=== PATIENT | female | born 1930 | race African-American/Black ===

== ENCOUNTER 2016-05-04 00:52 | Inpatient (IN) | payer MEDICARE ==
[~2016-05-04] VITALS: Ht 147.3 cm; Wt 67.1 kg
[2016-05-04] VITALS (7 sets, daily range): BP systolic 86–115; BP diastolic 51–74
[2016-05-04] MEDS ORDERED: TORSEMIDE20 MG ORAL (00:59)
[2016-05-04] MEDS ORDERED: LORAZEPAM0.5 MG ORAL (00:59)
[2016-05-04] MEDS ORDERED: DILTIAZEM 24HR120 M1 ORAL (00:59)
[2016-05-04] MEDS ORDERED: ZYRTEC10 MG ORAL (00:59)
[2016-05-04] MEDS ORDERED: NAMENDA10 MG ORAL (00:59)
[2016-05-04] MEDS ORDERED: POTASSIUM CHLO20 ME2 ORAL (00:59)
[2016-05-04] MEDS ORDERED: TYLENOL EXTRA500 MG ORAL (00:59)
[2016-05-04] MEDS ORDERED: STIOLTO RESPIMAT4 GM IH (00:59)
[2016-05-04] MEDS ORDERED: DONEPEZIL HCL10 MG ORAL (00:59)
[2016-05-04] MEDS ORDERED: ANORO ELLIPTA1 EACH (00:59)
[2016-05-04] MEDS ORDERED: VSL#3 PACKET1 EAC1 PO (00:59)
[2016-05-04] MEDS ORDERED: CELEBREX100 MG ORAL (00:59)
[2016-05-04] MEDS ORDERED: Tubing IV Cassette IV ONE (01:00)
[2016-05-04] MEDS ORDERED: Pantoprazole Inj IV ONE (01:00)
[2016-05-04 01:27] LABS: MEAN CORPUSCULAR HEMOGLOBIN 34.5 PG (27.0-31.0); MEAN CORPUSCULAR HGB CONC 33.1 G/DL (32.0-36.0); MEAN CORPUSCULAR VOLUME 105 FL (80-99); MEAN PLATELET VOLUME 6.2 FL (6.5-10.1); PLATELET COUNT 202 K/UL (150-450); RED BLOOD COUNT 2.01 M/UL (4.20-5.40); RED CELL DISTRIBUTION WIDTH 16.5 % (11.6-14.8); WHITE BLOOD COUNT 11.1 K/UL (4.8-10.8)
[2016-05-04 01:42] LABS: ALANINE AMINOTRANSFERASE 13 U/L (3-33); ASPARTATE AMINO TRANSFERASE 19 U/L (5-40); CALCIUM 7.5 mg/dL (8.6-10.2); CARBON DIOXIDE 27 mEQ/L (20-30); CREATININE 0.9 mg/dL (0.5-0.9); HEMOLYSIS 6; LIPASE 49 U/L (< 60); TOTAL PROTEIN 5.5 g/dL (6.6-8.7)
[2016-05-04 01:43] LABS: ANION GAP 14 (5-15); CHLORIDE 104 mEQ/L (98-107); POTASSIUM 3.6 mEQ/L (3.4-4.9); SODIUM 145 mEQ/L (135-145)
[2016-05-04 01:44] LABS: TROPONIN I < 0.30 ng/mL (<=0.30)
[2016-05-04 01:46] LABS: INR 1.2 (0.9-1.1)
[2016-05-04 01:54] LABS: CKMB < 1.5 ng/mL (< 3.8)
[2016-05-04 02:12] LABS: APPEARANCE,URINE CLEAR; KETONES,URINE NEGATIVE (NEGATIVE); LEUKOCYTE ESTERASE ,URINE NEGATIVE (NEGATIVE); NITRITE,URINE NEGATIVE (NEGATIVE); PH,URINE 6.5 (4.5-8.0); PROTEIN,URINE NEGATIVE (NEGATIVE); UROBILINOGEN,URINE NORMAL MG/DL (0.0-1.0)
[2016-05-04] MEDS ORDERED: PREVACID15 MG ORAL (05:02)
[2016-05-04] MEDS ORDERED: Torsemide PO (05:02)
[2016-05-04] MEDS ORDERED: VENTOLIN HFA18 GM INH (05:02)
[2016-05-04] MEDS ORDERED: ZOFRAN4 M1 ORAL (05:02)
[2016-05-04] MEDS ORDERED: ROBAFEN100 MG/5 M PO (05:02)
--- NOTE | 2016-05-04 05:32 | Emergency Room Report ---
History of Present Illness General Chief Complaint: Gastrointestinal Bleed Source: Patient, Family Member Present Illness HPI 85-year-old female presents to ED for evaluation. Per EMS patient noted to have coffee ground emesis starting last night around 11 PM at her [facility]. Patient multiple episodes. Patient felt dizzy and weak after. Patient initially hypotensive but improved with IV fluids. Patient denies any chest pain or shortness of breath. Denies any fevers or chills. Family at bedside states patient had previous episodes of lower GI bleed and require blood transfusion. No other aggravating or relieving factors. Denies any other associated symptoms Allergies: Coded Allergies: CLARITHROMYCIN (Verified Allergy, Unknown, 05/04/16) DEXTROMETHORPHAN (Verified Allergy, Unknown, 05/04/16) MACROLIDE ANTIBIOTICS (Verified Allergy, Unknown, 05/04/16) PENICILLINS (Verified Allergy, Unknown, 05/04/16) Uncoded Allergies: KETOLIDES (Allergy, Unknown, 05/04/16) RED DYES (Allergy, Unknown, 05/04/16) TARTRAZINE (Allergy, Unknown, 05/04/16) YELLOW DYE-NON TARTRAZINE (Allergy, Unknown, 05/04/16) Patient History Past Medical History: HTN, AFib Past Surgical History: none Pertinent Family History: none Social History: Denies: alcohol use, drug use, smoking Last Menstrual Period: NA Now: No Immunizations: UTD Reviewed Nursing Documentation: PMH: Agreed, PSxH: Agreed Nursing Documentation-PMH Hx Cardiac Problems: Yes - AFIB, CHF, ANEMIA, AORTIC STENOSIS Hx Hypertension: Yes Hx Cancer: Yes - UTERINE CA Review of Systems All Other Systems: negative except mentioned in HPI Physical Exam Vital Signs Date Time Temp Pulse Resp B/P Pulse Ox O2 Delivery O2 Flow Rate FiO2 05/04/16 00:38 115 18 91/51 97 Room Air 05/04/16 02:12 97.5 Sp02 EP Interpretation: reviewed, normal General Appearance: no apparent distress, alert, GCS 15, non-toxic, cachetic, thin Head: normocephalic, atraumatic Eyes: bilateral eye PERRL, bilateral eye normal inspection ENT: hearing grossly normal, normal pharynx, no angioedema, normal voice Neck: full range of motion, supple/symm/no masses Respiratory: chest non-tender, lungs clear, normal breath sounds, speaking full sentences Cardiovascular #1: no edema, tachycardia Cardiovascular #2: 2+ carotid (R), 2+ carotid (L), 2+ radial (R), 2+ radial (L) , 2+ dorsalis pedis (R), 2+ dorsalis pedis (L) Gastrointestinal: normal bowel sounds, non tender, soft, non-distended, no guarding, no rebound Rectal: deferred Genitourinary: normal inspection, no CVA tenderness Musculoskeletal: back normal, gait/station normal, normal range of motion, non- tender Neurologic: alert, oriented x3, responsive, motor strength/tone normal, sensory intact, speech normal Psychiatric: judgement/insight normal, memory normal, mood/affect normal, no suicidal/homicidal ideation Reflexes: 3+ bicep (R), 3+ bicep (L), 3+ tricep (R), 3+ tricep (L), 3+ knee (R) , 3+ knee (L) Skin: no rash, well hydrated, pallor Lymphatic: no adenopathy Procedures Critical Care Time Critical Care Time i. I feel this is a highly complex case requiring extensive working including EKG/Rhythm strip, Xray/CT/US, Blood/urine lab work, repeat exams while in ED, and administration of strong opiates/narcotics for pain control, admission to hospital or close patient follow up. Total time: 30 min bedside evaluation and treatment excludes procedures (EKG). Reason for critical care: Upper GI bleed, hypotension, A. fib Possible complications: hypotension, hypertension, UT, shock, arrhythmias, metabolic acidosis, end organ damage, respiratory failure. Interventions: Labs, IV fluids, EKG, Zofran, Protonix. PRBCs Course: She brought in for upper GI bleed. Given Protonix, Zofran, IV fluids. Hemoglobin 6.9. Patient hypotensive despite IV fluids. Started on blood transfusion with BP slowly improving. Patient had episodes of afib but quickly resolve Consultations: nursing staff, EMS, family Performed by: Dr aLws Tolerated well condition = serious j. because of unstable vital signs this patient had a condition that could potentially threaten life or limb. I feel this is a critical patient who required my full attention while patient was considered critical. 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 After initial history and physical I ordered labs, IV fluids, zofran, portonix Labs - noted leukocytosis, Hb 6.9. BUN 41. trop negative UA unremarkable EKG - afib wtih RVR Patient remains hypotensive despite IV fluids. Started on blood transfusion with slow improvement of BP and heart rate Case discussed with Dr. Quiroga and he agreed to accept the patient to his service for further care and support I feel this is a highly complex case requiring extensive working including EKG/ Rhythm strip, Xray/CT/US, Blood/urine lab work, repeat exams while in ED, and administration of strong opiates/narcotics for pain control, admission to hospital or close patient follow up. Diagnosis - UGIB, anemia Patient admitted to telemetry in serious condition Labs Test 05/04/16 00:45 05/04/16 01:45 White Blood Count 11.1 K/UL (4.8-10.8) Red Blood Count 2.01 M/UL (4.20-5.40) Hemoglobin 6.9 G/DL (12.0-16.0) Hematocrit 21.0 % (37.0-47.0) Mean Corpuscular Volume 105 FL (80-99) Mean Corpuscular Hemoglobin 34.5 PG (27.0-31.0) Mean Corpuscular Hemoglobin Concent 33.1 G/DL (32.0-36.0) Red Cell Distribution Width 16.5 % (11.6-14.8) Platelet Count 202 K/UL (150-450) Mean Platelet Volume 6.2 FL (6.5-10.1) Neutrophils (%) (Auto) % (45.0-75.0) Lymphocytes (%) (Auto) % (20.0-45.0) Monocytes (%) (Auto) % (1.0-10.0) Eosinophils (%) (Auto) % (0.0-3.0) Basophils (%) (Auto) % (0.0-2.0) Prothrombin Time 12.0 SEC (9.30-11.50) Prothromb Time International Ratio 1.2 (0.9-1.1) Activated Partial Thromboplast Time 21 SEC (23-33) Sodium Level 145 mEQ/L (135-145) Potassium Level 3.6 mEQ/L (3.4-4.9) Chloride Level 104 mEQ/L (98-107) Carbon Dioxide Level 27 mEQ/L (20-30) Anion Gap 14 (5-15) Blood Urea Nitrogen 41 mg/dL (7-23) Creatinine 0.9 mg/dL (0.5-0.9) Estimat Glomerular Filtration Rate mL/min (>60) Glucose Level 126 mg/dL (74-106) Calcium Level 7.5 mg/dL (8.6-10.2) Total Bilirubin 0.3 mg/dL (0.0-1.2) Aspartate Amino Transf (AST/SGOT) 19 U/L (5-40) Alanine Aminotransferase (ALT/SGPT) 13 U/L (3-33) Alkaline Phosphatase 55 U/L (35-104) Creatine Kinase MB < 1.5 ng/mL (< 3.8) Troponin I < 0.30 ng/mL (<=0.30) Total Protein 5.5 g/dL (6.6-8.7) Albumin 2.8 g/dL (3.5-5.2) Globulin 2.7 g/dL Albumin/Globulin Ratio 1.0 (1.0-2.7) Lipase 49 U/L (< 60) Urine Color Pale yellow Urine Appearance Clear Urine pH 6.5 (4.5-8.0) Urine Specific [place] 1.010 (1.005-1.035) Urine Protein Negative (NEGATIVE) Urine Glucose (UA) Negative (NEGATIVE) Urine Ketones Negative (NEGATIVE) Urine Occult Blood Negative (NEGATIVE) Urine Nitrite Negative (NEGATIVE) Urine Bilirubin Negative (NEGATIVE) Urine Urobilinogen Normal MG/DL (0.0-1.0) Urine Leukocyte Esterase Negative (NEGATIVE) EKG Diagnostic Results Rate: tachycardiac Rhythm: other - afib ST Segments: no acute changes ASA given to the pt in ED: No Rhythm Strip Diag. Results EP Interpretation: yes Rhythm: NSR, no PVC's, no ectopy Last Vital Signs Date Time Temp Pulse Resp B/P Pulse Ox O2 Delivery O2 Flow Rate FiO2 05/04/16 04:00 110 19 96/53 96 Room Air 05/04/16 04:00 97.3 Status: improved Disposition: ADMITTED INPATIENT Condition: Serious Referrals: NON PHYSICIAN (PCP) CAMACHO LAWS M.D. May 04, 2016 05:32
[2016-05-04] MEDS: Pantoprazole Inj IVP SCH ×2 (09:46→20:46)
[2016-05-04] MEDS: Memantine 10mg tab ORAL SCH ×2 (09:46→17:39)
--- NOTE | 2016-05-04 11:01 | History & Physical ---
History and Physical History & Physicial Dictated for Int Med-Dr Quezada no. [id number]. SHANICE KNIGHT May 04, 2016 11:01
--- NOTE | 2016-05-04 12:18 | Consultation ---
DATE OF CONSULTATION: 05/04/2016 HEMATOLOGY/ONCOLOGY CONSULTATION: CONSULTING PHYSICIAN: Quique Vanegas M.D. REQUESTING PHYSICIAN: Colin Quiroga M.D. REASON FOR CONSULTATION: Evaluation of anemia. IDENTIFICATION: Dear Dr. Colin Quiroga, The patient is a pleasant 85-year-old female with past medical history significant for hypertension, atrial fibrillation, aortic stenosis, history of anemia which has been chronic, history of , at this time presented to ER for further evaluation due to coffee-ground emesis began last night in the residential. The patient's daughter IV fluids and afterwards, she was transferred for evaluation of upper GI bleed in addition to blood transfusions. Hematology service was consulted. PAST MEDICAL HISTORY: As noted above. PAST SURGICAL HISTORY: Reviewed. ALLERGIES: Clindamycin . SOCIAL HISTORY: No alcohol, tobacco, or illicit drug use . FAMILY HISTORY: Noncontributory. REVIEW OF SYSTEMS: Constitutional: No fever, chills, or night sweats. Skin: No rashes, lumps, or itching. HEENT: No headache, hearing or vision changes. Breasts: No lumps, pain, or discharge. Pulmonary: No cough, sputum, or shortness of breath. Cardiovascular: No chest pain, tightness, or palpitations. Gastrointestinal: No nausea, vomiting, or diarrhea. Genitourinary: No dysuria, frequency, or urgency. Musculoskeletal: No joint swelling, muscle pain, or trauma. PHYSICAL EXAMINATION: GENERAL: No acute distress. VITAL SIGNS: Temperature 97.2 degrees Fahrenheit, pulse 124, respiratory rate 12, blood pressure 110/69, and pulse oximetry 95% on room air. PULMONARY: Decreased breath sounds. CARDIOVASCULAR: Regular rate and rhythm. No S3 or S4. ABDOMEN: Soft, nontender, and nondistended. EXTREMITIES: A 1+ edema. LABORATORY AND DIAGNOSTIC DATA: WBC 11.1, hemoglobin , hematocrit , and platelet count . INR 0.2. BUN 41 and creatinine 3.9. Imaging, reviewed. ASSESSMENT: 1. Anemia secondary to coffee-ground emesis and gastrointestinal bleed. 2. Decreased hemoglobin and hematocrit . 3. Anemia secondary to chronic disease. 4. Leukocytosis process. 5. Hypertension secondary to bleed. 6. Atrial fibrillation with rapid ventricular response. 7. Coagulopathy secondary potential malnutrition versus vitamin K deficiency. RECOMMENDATIONS: 1. The patient transfer to ICU. 2. Hemoglobin goal less than 7. 3. Platelets goal less than 20,000. 4. I have ordered for anemia workup. 5. Ultrasound of the abdomen ordered. 6. Occult blood is pending. 7. DVT prophylaxis with SCDs. 8. GI prophylaxis with pantoprazole . 9. Consider ID service and GI service GI labs. 10. . Thank you, Dr. Colin Quiroga, for this kind referral. Please do not hesitate to contact me if you have any further questions. Quique Vanegas M.D. DR: Yoselin JOB#: [id number] CC:
--- NOTE | 2016-05-04 13:40 | Consultation ---
History of Present Illness General Date patient seen: May 04, 2016 Chief Complaint: Gastrointestinal Bleed Reason for Consultation: shock, inpatient management Present Illness HPI 85-year-old female with hx of afib, dementia, uterine cancer, presents to ED for evaluation of coffee ground emesis. Patient had multiple episodes. She felt dizzy and weak after and was hypotensive but improved with IV fluids. Family at bedside states patient had previous episodes of lower GI bleed and require blood transfusion. She is awake, poor historian but looks comfortable but pale. Allergies: Coded Allergies: CLARITHROMYCIN (Verified Allergy, Unknown, 05/04/16) DEXTROMETHORPHAN (Verified Allergy, Unknown, 05/04/16) MACROLIDE ANTIBIOTICS (Verified Allergy, Unknown, 05/04/16) PENICILLINS (Verified Allergy, Unknown, 05/04/16) Uncoded Allergies: KETOLIDES (Allergy, Unknown, 05/04/16) RED DYES (Allergy, Unknown, 05/04/16) TARTRAZINE (Allergy, Unknown, 05/04/16) YELLOW DYE-NON TARTRAZINE (Allergy, Unknown, 05/04/16) Medication History Scheduled Celecoxib* (Celebrex*), 100 MG ORAL TWICE A DAY, (Reported) Cetirizine Hcl* (Zyrtec*), 10 MG ORAL DAILY, (Reported) Diltiazem Hcl* (Diltiazem 24HR Er*), 360 MG ORAL DAILY, (Reported) Donepezil Hcl* (Donepezil Hcl*), 10 MG ORAL BID, (Reported) Lact Cmb2/S.thermophl/Bif Cmb1 (Vsl#3 Packet), 1 EACH PO THREE TIMES A DAY, ( Reported) Lansoprazole* (Prevacid*), 15 MG ORAL DAILY, (Reported) Lorazepam* (Lorazepam*), 0.5 MG ORAL TWICE A DAY, (Reported) Memantine Hcl* (Namenda*), 10 MG ORAL TWICE A DAY, (Reported) Potassium Chloride (Potassium Chloride), 20 MEQ ORAL TWICE A DAY, (Reported) [Torsemide*], 60 MG PO DAILY, (Reported) Scheduled PRN Acetaminophen* (Tylenol Extra Strength*), 500 MG ORAL Q6H PRN for Mild Pain/ Temp > 100.5, (Reported) Albuterol Sulfate (Ventolin Hfa), 1 PUFF INH EVERY 4 HOURS PRN for Shortness of Breath, (Reported) Guaifenesin (Robafen), 200 MG PO EVERY 6 HOURS PRN for For Cough, (Reported) Ondansetron (Zofran), 4 MG ORAL Q6H PRN for Nausea & Vomiting, (Reported) Miscellaneous Medications Tiotropium Br/Olodaterol HCl (Stiolto Respimat Inhal Patriot), Unknown Dose IH, ( Reported) Umeclidinium Brm/Vilanterol Tr (Anoro Ellipta 62.5-25 Mcg INH), (Reported) Discontinued Medications Torsemide* (Demadex*), 20 MG ORAL DAILY, (Reported) Discontinued Reason: Prescription changed Patient History Healthcare decision maker Laury Rojas Resuscitation status Full Code Advanced Directive on File No Past Medical/Surgical History Past Medical/Surgical History: (1) Atrial fibrillation (2) Anemia Review of Systems All Other Systems: negative except mentioned in HPI Physical Exam General Appearance: WD/WN HEENT: normocephalic, atraumatic Neck: non-tender, normal alignment Respiratory/Chest: chest wall non-tender, lungs clear Breasts: no masses Cardiovascular/Chest: normal peripheral pulses, normal rate Abdomen: normal bowel sounds, non tender Extremities: normal range of motion Skin Exam: normal pigmentation Last 24 Hour Vital Signs Date Time Temp Pulse Resp B/P Pulse Ox O2 Delivery O2 Flow Rate FiO2 05/04/16 13:10 140 103/48 05/04/16 11:50 97.0 100 20 108/60 97 Room Air 05/04/16 09:47 117 110/61 05/04/16 08:28 97.2 124 20 110/61 95 Room Air 05/04/16 04:00 82 05/04/16 04:00 110 19 96/53 96 Room Air 05/04/16 04:00 97.3 138 16 107/62 97 Room Air 05/04/16 03:05 97.8 130 19 86/51 95 Room Air 05/04/16 02:12 97.5 97 19 88/53 95 Room Air 05/04/16 00:38 115 18 91/51 97 Room Air Intake and Output 05/03/16 05/04/16 19:00 07:00 Intake Total 2000 ml Output Total 575 ml Balance 1425 ml Intake IV Total 2000 ml Output Urine Total 575 ml Laboratory Tests Test 05/04/16 00:45 05/04/16 01:45 White Blood Count 11.1 K/UL (4.8-10.8) H Red Blood Count 2.01 M/UL (4.20-5.40) L Hemoglobin 6.9 G/DL (12.0-16.0) *L Hematocrit 21.0 % (37.0-47.0) L Mean Corpuscular Volume 105 FL (80-99) H Mean Corpuscular Hemoglobin 34.5 PG (27.0-31.0) H Mean Corpuscular Hemoglobin Concent 33.1 G/DL (32.0-36.0) Red Cell Distribution Width 16.5 % (11.6-14.8) H Platelet Count 202 K/UL (150-450) Mean Platelet Volume 6.2 FL (6.5-10.1) L Neutrophils (%) (Auto) % (45.0-75.0) Lymphocytes (%) (Auto) % (20.0-45.0) Monocytes (%) (Auto) % (1.0-10.0) Eosinophils (%) (Auto) % (0.0-3.0) Basophils (%) (Auto) % (0.0-2.0) Prothrombin Time 12.0 SEC (9.30-11.50) H Prothromb Time International Ratio 1.2 (0.9-1.1) H Activated Partial Thromboplast Time 21 SEC (23-33) L Sodium Level 145 mEQ/L (135-145) Potassium Level 3.6 mEQ/L (3.4-4.9) Chloride Level 104 mEQ/L (98-107) Carbon Dioxide Level 27 mEQ/L (20-30) Anion Gap 14 (5-15) Blood Urea Nitrogen 41 mg/dL (7-23) H Creatinine 0.9 mg/dL (0.5-0.9) Estimat Glomerular Filtration Rate mL/min (>60) Glucose Level 126 mg/dL (74-106) H Calcium Level 7.5 mg/dL (8.6-10.2) L Total Bilirubin 0.3 mg/dL (0.0-1.2) Aspartate Amino Transf (AST/SGOT) 19 U/L (5-40) Alanine Aminotransferase (ALT/SGPT) 13 U/L (3-33) Alkaline Phosphatase 55 U/L (35-104) Creatine Kinase MB < 1.5 ng/mL (< 3.8) Troponin I < 0.30 ng/mL (<=0.30) Total Protein 5.5 g/dL (6.6-8.7) L Albumin 2.8 g/dL (3.5-5.2) L Globulin 2.7 g/dL Albumin/Globulin Ratio 1.0 (1.0-2.7) Lipase 49 U/L (< 60) Urine Color Pale yellow Urine Appearance Clear Urine pH 6.5 (4.5-8.0) Urine Specific [place] 1.010 (1.005-1.035) Urine Protein Negative (NEGATIVE) Urine Glucose (UA) Negative (NEGATIVE) Urine Ketones Negative (NEGATIVE) Urine Occult Blood Negative (NEGATIVE) Urine Nitrite Negative (NEGATIVE) Urine Bilirubin Negative (NEGATIVE) Urine Urobilinogen Normal MG/DL (0.0-1.0) Urine Leukocyte Esterase Negative (NEGATIVE) Height (Feet): 4 Height (Inches): 10.00 Weight (Pounds): 148 Medications Current Medications Medications (Trade) Dose Ordered Sig/Amy Route PRN Reason Start Time Stop Time Status Last Admin Dose Admin Diltiazem HCl (Cardizem) 60 mg FOUR TIMES A DAY ORAL 05/04/16 09:00 06/03/16 08:59 05/04/16 13:10 Lorazepam (Ativan) 0.5 mg BIDPRN PRN ORAL For Anxiety 05/04/16 08:30 05/11/16 08:29 Memantine (Namenda) 10 mg BID ORAL 05/04/16 09:00 06/03/16 08:59 05/04/16 09:46 Ondansetron HCl (Zofran) 4 mg Q6H PRN IVP Nausea & Vomiting 05/04/16 08:30 06/03/16 08:29 Pantoprazole (Protonix) 40 mg EVERY 12 HOURS IVP 05/04/16 09:00 06/03/16 08:59 05/04/16 09:46 Assessment/Plan Problem List: (1) UGIB (upper gastrointestinal bleed) ICD Codes: K92.2 - Gastrointestinal hemorrhage, unspecified SNOMED: 59876014 (2) Atrial fibrillation ICD Codes: I48.91 - Unspecified atrial fibrillation SNOMED: 41965589 (3) Anemia ICD Codes: D64.9 - Anemia, unspecified SNOMED: 530027162 Qualifiers: Qualified Codes: D64.9 - Anemia, unspecified Assessment/Plan prbc prn GI evaluation H2 blokers monitor bed watch heart rate. Keep in teli for now NAPOLEON JI May 04, 2016 13:40
--- NOTE | 2016-05-04 14:34 | GI Initial Consult Note ---
History of Present Illness General Date patient seen: May 04, 2016 Time patient seen: 12:00 Reason for Hospitalization: Gastrointestinal Bleed Referring physician: PITO RICHMOND Reason for Consultation: ANEMIA 2/2 ACUTE BLOOD LOSS Present Illness HPI 85-year-old female presents to ED for evaluation. Per EMS patient noted to have coffee ground emesis starting last night around 11 PM at her [facility]. Patient multiple episodes. Patient felt dizzy and weak after. Patient initially hypotensive but improved with IV fluids. Patient denies any chest pain or shortness of breath. Denies any fevers or chills. Family at bedside states patient had previous episodes of lower GI bleed and require blood transfusion. No other aggravating or relieving factors. Denies any other associated symptoms GI CONSULT: HPI as noted above. GI consulted for UGIB. Pt seen on floor A&O NAD with family at bedside. No active s/sx of hematemesis or coffee grounds at this time. According to the daughter, the patient has had a history of multiple abdominal surgeries with bowel resection prior in the past. More recently, she was hospitalized at [facility] in Jan 2016 for anemia. Unknown history of colonoscopy. Home Meds Reported Medications Albuterol Sulfate (VENTOLIN HFA) 18 Gm Hfa.aer.ad, 1 PUFF INH EVERY 4 HOURS Y for Shortness of Breath, #18 GM 0 Refills 05/04/16 Guaifenesin (ROBAFEN) 100 Mg/5 Ml Liquid, 200 MG PO EVERY 6 HOURS Y for For Cough, ML 05/04/16 Ondansetron (Zofran) 4 Mg Tablet, 4 MG ORAL Q6H Y for Nausea & Vomiting, TAB 05/04/16 Lansoprazole* (PREVACID*) 15 Mg Capsule.dr, 15 MG ORAL DAILY, CAP 05/04/16 [Torsemide*] No Conflict Check, 60 MG PO DAILY 05/04/16 Acetaminophen* (TYLENOL EXTRA STRENGTH*) 500 Mg Tablet, 500 MG ORAL Q6H Y for Mild Pain/Temp > 100.5, TAB 0 Refills 05/04/16 Lact Cmb2/S.thermophl/Bif Cmb1 (VSL#3 PACKET) 1 Each Packet, 1 EACH PO THREE TIMES A DAY, PACKET 05/04/16 Tiotropium Br/Olodaterol HCl (Stiolto Respimat Inhal [place]) 4 Gm Mist.inhal, IH 05/04/16 Potassium Chloride (POTASSIUM CHLORIDE) 20 Meq Packet, 20 MEQ ORAL TWICE A DAY, #60 PKT 0 Refills 05/04/16 Memantine Hcl* (NAMENDA*) 10 Mg Tablet, 10 MG ORAL TWICE A DAY, TAB 05/04/16 Lorazepam* (LORAZEPAM*) 0.5 Mg Tablet, 0.5 MG ORAL TWICE A DAY, TAB 05/04/16 Donepezil Hcl* (DONEPEZIL HCL*) 10 Mg Tablet, 10 MG ORAL BID, TAB 05/04/16 Diltiazem Hcl* (DILTIAZEM 24HR ER*) 120 Mg Cap.er.24h, 360 MG ORAL DAILY, TAB 05/04/16 Cetirizine Hcl* (ZYRTEC*) 10 Mg Tablet, 10 MG ORAL DAILY, #30 TAB 0 Refills 05/04/16 Celecoxib* (CELEBREX*) 100 Mg Capsule, 100 MG ORAL TWICE A DAY, CAP 05/04/16 Umeclidinium Brm/Vilanterol Tr (Anoro Ellipta 62.5-25 Mcg INH) 1 Each Blst.w.dev 05/04/16 Discontinued Reported Medications Torsemide* (DEMADEX*) 20 Mg Tablet, 20 MG ORAL DAILY, TAB 0 Refills 05/04/16 Med list reviewed/reconciled: Yes Allergies: Coded Allergies: CLARITHROMYCIN (Verified Allergy, Unknown, 05/04/16) DEXTROMETHORPHAN (Verified Allergy, Unknown, 05/04/16) MACROLIDE ANTIBIOTICS (Verified Allergy, Unknown, 05/04/16) PENICILLINS (Verified Allergy, Unknown, 05/04/16) Uncoded Allergies: KETOLIDES (Allergy, Unknown, 05/04/16) RED DYES (Allergy, Unknown, 05/04/16) TARTRAZINE (Allergy, Unknown, 05/04/16) YELLOW DYE-NON TARTRAZINE (Allergy, Unknown, 05/04/16) Patient History History Provided By: Patient, Significant Other, Medical Record PMH Narrative Past Medical History: HTN, AFib Past Surgical History: none Pertinent Family History: none Social History: Denies: alcohol use, drug use, smoking Last Menstrual Period: NA Now: No Immunizations: UTD Reviewed Nursing Documentation: PMH: Agreed, PSxH: Agreed Nursing Documentation-PMH Hx Cardiac Problems: Yes - AFIB, CHF, ANEMIA, AORTIC STENOSIS Hx Hypertension: Yes Hx Cancer: Yes - UTERINE CA Review of Systems All Other Systems: negative except mentioned in HPI Physical Exam Vital Signs Date Time Temp Pulse Resp B/P Pulse Ox O2 Delivery O2 Flow Rate FiO2 05/04/16 00:38 115 18 91/51 97 Room Air 05/04/16 02:12 97.5 Sp02 EP Interpretation: reviewed Labs Laboratory Tests Test 05/04/16 00:45 05/04/16 01:45 White Blood Count 11.1 K/UL (4.8-10.8) H Red Blood Count 2.01 M/UL (4.20-5.40) L Hemoglobin 6.9 G/DL (12.0-16.0) *L Hematocrit 21.0 % (37.0-47.0) L Mean Corpuscular Volume 105 FL (80-99) H Mean Corpuscular Hemoglobin 34.5 PG (27.0-31.0) H Mean Corpuscular Hemoglobin Concent 33.1 G/DL (32.0-36.0) Red Cell Distribution Width 16.5 % (11.6-14.8) H Platelet Count 202 K/UL (150-450) Mean Platelet Volume 6.2 FL (6.5-10.1) L Neutrophils (%) (Auto) % (45.0-75.0) Lymphocytes (%) (Auto) % (20.0-45.0) Monocytes (%) (Auto) % (1.0-10.0) Eosinophils (%) (Auto) % (0.0-3.0) Basophils (%) (Auto) % (0.0-2.0) Prothrombin Time 12.0 SEC (9.30-11.50) H Prothromb Time International Ratio 1.2 (0.9-1.1) H Activated Partial Thromboplast Time 21 SEC (23-33) L Sodium Level 145 mEQ/L (135-145) Potassium Level 3.6 mEQ/L (3.4-4.9) Chloride Level 104 mEQ/L (98-107) Carbon Dioxide Level 27 mEQ/L (20-30) Anion Gap 14 (5-15) Blood Urea Nitrogen 41 mg/dL (7-23) H Creatinine 0.9 mg/dL (0.5-0.9) Estimat Glomerular Filtration Rate mL/min (>60) Glucose Level 126 mg/dL (74-106) H Calcium Level 7.5 mg/dL (8.6-10.2) L Total Bilirubin 0.3 mg/dL (0.0-1.2) Aspartate Amino Transf (AST/SGOT) 19 U/L (5-40) Alanine Aminotransferase (ALT/SGPT) 13 U/L (3-33) Alkaline Phosphatase 55 U/L (35-104) Creatine Kinase MB < 1.5 ng/mL (< 3.8) Troponin I < 0.30 ng/mL (<=0.30) Total Protein 5.5 g/dL (6.6-8.7) L Albumin 2.8 g/dL (3.5-5.2) L Globulin 2.7 g/dL Albumin/Globulin Ratio 1.0 (1.0-2.7) Lipase 49 U/L (< 60) Urine Color Pale yellow Urine Appearance Clear Urine pH 6.5 (4.5-8.0) Urine Specific [place]oss 1.010 (1.005-1.035) Urine Protein Negative (NEGATIVE) Urine Glucose (UA) Negative (NEGATIVE) Urine Ketones Negative (NEGATIVE) Urine Occult Blood Negative (NEGATIVE) Urine Nitrite Negative (NEGATIVE) Urine Bilirubin Negative (NEGATIVE) Urine Urobilinogen Normal MG/DL (0.0-1.0) Urine Leukocyte Esterase Negative (NEGATIVE) General Appearance: well appearing, no apparent distress, alert Head: normocephalic EENT: normal ENT inspection Neck: supple Respiratory: normal breath sounds, no respiratory distress Cardiovascular: normal rate Gastrointestinal: normal inspection, non tender, soft Rectal: deferred Genitourinary: normal inspection, no CVA tenderness Neurologic: normal inspection, alert, responsive Psychiatric: normal inspection, judgement/insight normal, memory normal Skin: normal inspection, normal color, no rash, warm/dry Lymphatic: normal inspection, no adenopathy Current Medications Current Medications Medications (Trade) Dose Ordered Sig/Amy Route PRN Reason Start Time Stop Time Status Last Admin Dose Admin Diltiazem HCl (Cardizem) 60 mg FOUR TIMES A DAY ORAL 05/04/16 09:00 06/03/16 08:59 05/04/16 13:10 Lorazepam (Ativan) 0.5 mg BIDPRN PRN ORAL For Anxiety 05/04/16 08:30 05/11/16 08:29 Memantine (Namenda) 10 mg BID ORAL 05/04/16 09:00 06/03/16 08:59 05/04/16 09:46 Ondansetron HCl (Zofran) 4 mg Q6H PRN IVP Nausea & Vomiting 05/04/16 08:30 06/03/16 08:29 Pantoprazole (Protonix) 40 mg EVERY 12 HOURS IVP 05/04/16 09:00 06/03/16 08:59 05/04/16 09:46 GI: Plan Problems: (1) Coffee ground emesis (2) Hypoalbuminemia (3) Leukocytosis (4) Anemia (5) UGIB (upper gastrointestinal bleed) Plan Pt scheduled for EGD tomorrow. - CLD after abdominal U/S, NPO @ MN. hold all blood thinners PPI BID monitor H&H, transfuse prn if Hgb < 7.0 obtain records from [facility] labs Discussed with Dr. Lorenzana. Thank you for referring this patient, we will follow. Ana Boogie N.P. May 04, 2016 14:34
[2016-05-04 16:08] LABS: BASOPHILS % (AUTO) 1.4 % (0.0-2.0); EOSINOPHILS % (AUTO) 0.9 % (0.0-3.0); LYMPHOCYTES % (AUTO) 24.8 % (20.0-45.0); MEAN CORPUSCULAR HEMOGLOBIN 32.9 PG (27.0-31.0); MEAN CORPUSCULAR VOLUME 100 FL (80-99); MEAN PLATELET VOLUME 5.8 FL (6.5-10.1); MONOCYTES % (AUTO) 10.2 % (1.0-10.0); NEUTROPHILS % (AUTO) 62.7 % (45.0-75.0); PLATELET COUNT 172 K/UL (150-450); RED BLOOD COUNT 2.99 M/UL (4.20-5.40); RED CELL DISTRIBUTION WIDTH 17.6 % (11.6-14.8)
--- NOTE | 2016-05-04 16:14 | Diagnostic Imaging Report ---
Indication: Abdominal pain and distention Technique: Narvaez-scale and duplex images of the upper abdomen were obtained Comparison: None Findings: Exam is somewhat limited, as patient was confused and unable tolerate the exam well.. Gallbladder is poorly demonstrated, appears to be shadowing, likely filled with gallstones. No definite gallbladder wall thickening nor pericholecystic fluid. . Common bile duct measures 7 mm in diameter. No intrahepatic biliary ductal dilatation. Liver demonstrates normal echogenicity, no focal abnormality. Portal vein and hepatic veins are patent.. Pancreas is unremarkable. Spleen is unremarkable. Left kidney measures 9.7 cm in length. Right kidney measures 10.1 cm length. Both kidneys demonstrate normal echogenicity. There is no hydronephrosis. There is a 2.5 cm cyst in the upper pole of left kidney. Abdominal aorta is partially obscured by bowel gas, visualized portions are non-aneurysmal. Impression: Poorly visualized gallbladder, likely filled with stones. Mildly ectatic common bile duct. Probably related to patient's age, but downstream obstruction not completely excluded. Correlate with liver function tests Incidental finding of left renal cyst Note inability to visualize portions of the distal abdominal aorta
[2016-05-04 16:19] LABS: ANION GAP 15 (5-15); CALCIUM 7.9 mg/dL (8.6-10.2); CARBON DIOXIDE 23 mEQ/L (20-30); CHLORIDE 109 mEQ/L (98-107); CREATININE 0.7 mg/dL (0.5-0.9); HEMOLYSIS 7; POTASSIUM 3.9 mEQ/L (3.4-4.9); SODIUM 147 mEQ/L (135-145)
[2016-05-04 16:34] LABS: HEMOLYSIS 4; IRON 223 ug/dL (37-145); TOTAL IRON BINDING CAPACITY 253 ug/dL (250-400)
[2016-05-04 16:35] LABS: CRP QUANT < 0.3 mg/dL (< 0.5)
[2016-05-04 16:47] LABS: FERRITIN 71 ng/mL (13-150)
[2016-05-04] MEDS: LORazepam 0.5mg tab ORAL PRN (17:21)
[2016-05-04 19:40] LABS: RETICULOCYTE COUNT 1.5 % (0.0-2.0)
--- NOTE | 2016-05-04 20:28 | History and Physical Report ---
DATE OF ADMISSION: 05/04/2016 CHIEF COMPLAINT: The patient is an 85-year-old white female who presents with complaint of vomiting blood. HISTORY OF PRESENT ILLNESS: The patient is a resident of [facility]. The patient has Alzheimer's dementia and is unable to contribute much of the history and physical. Much of the history and physical is obtained from the patient's daughter, Laury, power of traffic law attorney who is at the bedside. According to staff at [facility], the patient experience coffee-grounds emesis last evening. EMS was called. The patient was transported to [facility]. The patient's hemoglobin was found to be 6.9. The patient was admitted for probable upper gastrointestinal hemorrhage and anemia. PAST MEDICAL HISTORY: Significant for. 1. Hypertension. 2. Atrial fibrillation. 3. Alzheimer's dementia. 4. Rheumatoid arthritis. 5. Coronary artery disease. 6. Congestive heart failure. 7. Aortic stenosis. 8. Uterine cancer, status post total abdominal hysterectomy, chemotherapy and radiation therapy. 9. History of gastrointestinal bleed in January 2016, admitted to [facility]. PAST SURGICAL HISTORY: Significant for: 1. Small bowel obstruction in 2011. 2. Hernia repair. 3. Total abdominal hysterectomy secondary to uterine cancer as above in 2006. CURRENT MEDICATIONS: 1. Multivitamin tablet p.o. twice daily. 2. Asmanex an oral inhaler one puff daily. 3. Celebrex 100 mg one tablet p.o. twice daily. 4. Zyrtec 10 mg one tablet p.o. daily. 5. Diltiazem ER 360 mg one tablet p.o. daily. 6. Aricept 10 mg one tablet p.o. twice daily. 7. Ensure one bottle p.o. at bedtime. 8. Lorazepam 1 mg one tablet p.o. twice daily. 9. Namenda 10 mg one tablet p.o. twice daily. 10. Potassium chloride 20 mEq one tablet p.o. twice daily. 11. Prevacid 15 mg one tablet p.o. daily. 12. Torsemide 20 mg three tablets p.o. daily. ALLERGIES: 1. Erythromycin. 2. Clarithromycin. 3. . 4. Penicillin. SOCIAL HISTORY: The patient is . The patient lives at [facility]. The patient denies tobacco or alcohol use. REVIEW OF SYSTEMS: Constitutional: The patient denies fevers or chills. The patient does complain of generalized weakness. Cardiovascular: The patient denies palpitations or chest pain. Heent: The patient denies ear or throat pain. The patient denies headache. Chest: The patient denies wheeze or shortness of breath. Abdomen: The patient complains of coffee-grounds emesis as above. The patient denies diarrhea or constipation. Genitourinary: The patient denies dysuria or increased frequency of urination. Neuromuscular: The patient denies seizure. The patient complains of generalized weakness. PHYSICAL EXAMINATION: VITAL SIGNS: Temperature 97.5, respirations 19, pulse 97, blood pressure 88/53. GENERALLY: The patient is well-developed and well-nourished white female, no apparent distress. HEENT: Eyes are pupils are equal and responsive to light and accommodation. Extraocular movements are intact. NECK: Supple without lymphadenopathy. CHEST: Lungs are clear to auscultation bilaterally without wheezes or rales. CARDIOVASCULAR: Regular rate. S1 and S2 are normal without murmurs, rubs, or gallops. ABDOMEN: Soft and nondistended. Diffusely tender to palpation with positive bowel sounds. No evidence of hepatosplenomegaly. Currently no rebound or guarding. EXTREMITIES: Negative for clubbing, cyanosis, or edema. RECTAL/GENITAL: Refused. NEUROLOGIC: Cranial nerves II through XII are grossly intact without focal deficits. Motor strength is 5/5 bilaterally. Deep tendon reflexes are 2+ plantar. LABORATORY STUDIES: WBC 11.1, hemoglobin 6.9, hematocrit 21.0, platelets 202,000. Sodium 145, potassium 3.6, chloride 104, CO2 27, BUN 41, creatinine 0.9, glucose 126. Troponin less than 0.3. An EKG was performed, which demonstrated sinus tachycardia at approximately 125 beats per minute. There are no acute ST changes or Q-waves noted. ASSESSMENT: This is an 85-year-old female. 1. Gastrointestinal hemorrhage. 2. Anemia of blood loss. 3. Hematemesis. 4. Weakness. 5. Vertigo. 6. Hypertension. 7. Coronary artery disease. 8. Congestive heart failure. 9. Alzheimer's dementia. 10. Aortic stenosis. 11. History of uterine cancer. 12. Tachycardia. TREATMENT: 1. Gastrointestinal hemorrhage plus anemia, the patient received one unit of packed RBCs in the emergency room. The patient is currently receiving a second unit of packed RBCs. A Gastroenterology consultation obtained with Dr. Abdoul Lorenzana. Gastrointestinal hemorrhage may be secondary to Celebrex versus ulcer. The patient may require endoscopy during this hospitalization. 2. Hypertension. Continue Cardizem as above. 3. Coronary artery disease. 4. Congestive heart failure. 5. Atrial fibrillation. 6. Aortic stenosis. 7. Uterine cancer, status post total hysterectomy. 8. Tachycardia. Jatinder Salgado M.D. DR: Jez JOB#: [id number] CC:
--- NOTE | 2016-05-04 23:04 | Consultation ---
Consult Note Consult Note Cardiology/ EP for Dr. Pedraza full note dictated #[id number] MARY PRESSLEY May 04, 2016 23:04
[2016-05-05] VITALS: BP 100/66
--- NOTE | 2016-05-05 01:27 | Consultation ---
DATE OF CONSULTATION: CARDIOLOGY CONSULT This is a cardiac electrophysiology consult being done as coverage for Dr. Flakito Pedraza. REASON FOR CONSULT: Atrial fibrillation. HISTORY OF PRESENT ILLNESS: History is obtained primarily from the chart and treating providers as the patient has dementia and is unable to give much history. The case is an 85-year-old woman, convalescent home resident, with a history of atrial fibrillation, hypertension, coronary artery disease, and dementia, who was brought in by paramedics with hematemesis. Her hemoglobin was 6.9. She was admitted for upper gastrointestinal bleeding and anemia. She was found to be in atrial flutter with a ventricular rate of 125 beats per minute on admission and is currently in atrial fibrillation. Cardiology evaluation was requested. The patient herself has no complaints of palpitations, chest pain, or dyspnea. She does not know why she is in the hospital and is oriented to person only. PAST MEDICAL HISTORY: As noted above. Also, history of uterine cancer status post hysterectomy and chemotherapy and radiation, history of small-bowel obstruction in 2011 treated surgically, history of gastrointestinal bleed in January 2006 treated at [facility], history of valvular heart disease with severe tricuspid regurgitation and moderate aortic stenosis by echo in March 2015 treated at [facility], history of atrial fibrillation in January 2016, persistent and treated with metoprolol and digoxin, history of acute on persistent treated with rate control, digoxin and metoprolol, history of valvular heart disease with [id number] tricuspid, mitral regurgitation, and moderate aortic stenosis by echo in February 2015. MEDICATIONS: Tylenol p.r.n., diltiazem 60 mg p.o. q.6 hours, Protonix 40 mg IV q.12 hours, Namenda 10 mg p.o. b.i.d., Ativan 0.5 mg p.o. b.i.d. p.r.n., and Zofran 4 mg IV q.6 hours p.r.n. ALLERGIES: Penicillin, antibiotics, clarithromycin, dextromethorphan, and tartrazine. SOCIAL HISTORY: Not obtainable from the patient or chart. REVIEW OF SYSTEMS: Not obtainable from the patient or chart. PHYSICAL EXAMINATION: VITAL SIGNS: Blood pressure is 113/74, pulse 126 and irregularly irregular, respirations 20, and afebrile. GENERAL: Alert, elderly-appearing white female, in no acute distress. HEENT: Normocephalic and atraumatic. Pupils are equal, round, and reactive to light. Sclerae anicteric. Oral mucosa dry. NECK: Supple. There is a left external jugular venous catheter. No carotid bruits. LUNGS: Clear to auscultation bilaterally. HEART: Irregularly irregular. Tachycardic. S1 and S2 with a 2/6 systolic ejection murmur heard at the right second intercostal space radiating across the left sternal border. No S3. No rubs. ABDOMEN: Soft and nontender. No palpable mass. EXTREMITIES: A 1+ pedal and ankle edema bilaterally. SKIN: No rashes or lesions. LABORATORY DATA: Hemoglobin on admission 6.9, hematocrit 21, white blood count 11,100, and platelets 202,000. Sodium 147, potassium 3.9, chloride 109, bicarbonate 23, BUN 50, and creatinine 0.7. Troponin less than 0.3. INR 1.2. Urinalysis negative. EKG on admission shows atrial flutter with a ventricular rate of 125 beats per minute, axis +[address] elevation or depression. Nonspecific T-wave changes. Chest x-ray is pending. ASSESSMENT AND RECOMMENDATIONS: The patient is an 85-year-old woman with a history of hypertension, dementia, and atrial fibrillation, persistent, and also previous history of upper gastrointestinal bleed in January 2016, who was admitted with hematemesis and anemia. She is in atrial fibrillation and flutter with rapid ventricular rates. She is undergoing transfusion of packed red blood cells for treatment of her anemia. She does not appear with any evidence for congestive heart failure or acute coronary syndrome based on EKG and troponin levels. I would favor treatment with rate control. She is currently on Cardizem 60 mg four times daily. If this is ineffective, I would change to a beta-ishan such as metoprolol, could also add a small dose of digoxin, which she has taken in the past. She is not a candidate for cardioversion given the persistent atrial fibrillation and is not a candidate for anticoagulation due to gastrointestinal bleeding. She is at acceptable risk from a cardiovascular standpoint for upper endoscopy, which is planned as per Gastroenterology. Angie Lawrence M.D. DR: DESHAWN JOB#: [id number] CC:
[2016-05-05 04:00] VITALS: BP 95/63
[2016-05-05 04:01] LABS: BASOPHILS % (AUTO) 1.5 % (0.0-2.0); EOSINOPHILS % (AUTO) 2.1 % (0.0-3.0); LYMPHOCYTES % (AUTO) 27.5 % (20.0-45.0); MEAN CORPUSCULAR HEMOGLOBIN 33.4 PG (27.0-31.0); MEAN CORPUSCULAR HGB CONC 33.5 G/DL (32.0-36.0); MEAN CORPUSCULAR VOLUME 100 FL (80-99); MEAN PLATELET VOLUME 6.2 FL (6.5-10.1); MONOCYTES % (AUTO) 10.2 % (1.0-10.0); NEUTROPHILS % (AUTO) 58.7 % (45.0-75.0); PLATELET COUNT 158 K/UL (150-450); RED BLOOD COUNT 2.95 M/UL (4.20-5.40); RED CELL DISTRIBUTION WIDTH 18.1 % (11.6-14.8)
[2016-05-05 04:21] LABS: INR 1.1 (0.9-1.1); PROTHROMBIN TIME 11.1 SEC (9.30-11.50)
[2016-05-05 04:28] LABS: ALANINE AMINOTRANSFERASE 12 U/L (3-33); ALBUMIN/GLOBULIN RATIO 0.9 (1.0-2.7); ANION GAP 14 (5-15); ASPARTATE AMINO TRANSFERASE 20 U/L (5-40); CALCIUM 8.1 mg/dL (8.6-10.2); CARBON DIOXIDE 23 mEQ/L (20-30); CHLORIDE 114 mEQ/L (98-107); CREATININE 0.7 mg/dL (0.5-0.9); HEMOLYSIS 2; MAGNESIUM 2.2 mg/dL (1.7-2.5); PHOSPHORUS 3.6 mg/dL (2.5-4.8); POTASSIUM 3.8 mEQ/L (3.4-4.9); SODIUM 151 mEQ/L (135-145); TOTAL PROTEIN 5.7 g/dL (6.6-8.7)
--- NOTE | 2016-05-05 07:00 | General Progress Note ---
Assessment/Plan Assessment/Plan ASSESSMENT: 1. Anemia secondary to coffee-ground emesis and gastrointestinal bleed. Planning for scope per GI 2. Decreased hemoglobin and hematocrit r/o GI bleed 3. Anemia secondary to iron deficiency 4. Leukocytosis due to reactive process. 5. Hypertension secondary to bleed. 6. Atrial fibrillation with rapid ventricular response. 7. Coagulopathy secondary potential malnutrition versus vitamin K deficiency. RECOMMENDATIONS: 1. Back on med [facility] floor 2. Hemoglobin goal>7. 3. Platelets goal less than 20,000. 4. Anemia workup reviewed. potentially to undergo egd 5. Ultrasound of the abdomen pending 6. Occult blood is pending. 7. DVT prophylaxis with SCDs. 8. GI prophylaxis with pantoprazole . 9. Appreciate GI and cards revs 10. staff Thank you, Quique Vanegas MD Subjective Constitutional: Reports: no symptoms HEENT: Reports: no symptoms Cardiovascular: Reports: no symptoms Respiratory: Reports: no symptoms Gastrointestinal/Abdominal: Reports: no symptoms Genitourinary: Reports: no symptoms Neurologic/Psychiatric: Reports: no symptoms Endocrine: Reports: no symptoms Hematologic/Lymphatic: Reports: anemia Allergies: Coded Allergies: CLARITHROMYCIN (Verified Allergy, Unknown, 05/04/16) DEXTROMETHORPHAN (Verified Allergy, Unknown, 05/04/16) MACROLIDE ANTIBIOTICS (Verified Allergy, Unknown, 05/04/16) PENICILLINS (Verified Allergy, Unknown, 05/04/16) Uncoded Allergies: KETOLIDES (Allergy, Unknown, 05/04/16) RED DYES (Allergy, Unknown, 05/04/16) TARTRAZINE (Allergy, Unknown, 05/04/16) YELLOW DYE-NON TARTRAZINE (Allergy, Unknown, 05/04/16) Subjective no fevers, no chills, no mental status changes, no neuro Objective Last 24 Hour Vital Signs Date Time Temp Pulse Resp B/P Pulse Ox O2 Delivery O2 Flow Rate FiO2 05/05/16 04:00 98.2 123 20 95/63 97 Room Air 05/05/16 04:00 124 05/05/16 00:00 99.1 120 20 100/66 95 Room Air 05/05/16 00:00 126 05/04/16 21:48 99.3 05/04/16 20:46 126 113/74 05/04/16 20:00 127 05/04/16 20:00 99.3 122 20 115/69 94 Room Air 05/04/16 17:39 126 113/74 05/04/16 16:15 98.2 126 20 113/74 95 Room Air 05/04/16 16:00 126 05/04/16 13:10 140 103/48 05/04/16 11:50 97.0 100 20 108/60 97 Room Air 05/04/16 11:41 103 05/04/16 11:04 106 05/04/16 09:47 117 110/61 05/04/16 08:28 97.2 124 20 110/61 95 Room Air Intake and Output 05/04/16 05/05/16 19:00 07:00 Output Total 300 ml 750 ml Balance -300 ml -750 ml Output Urine Total 300 ml 750 ml Laboratory Tests 05/04/16 13:35: White Blood Count 10.0, Red Blood Count 2.99L, Hemoglobin 9.8#L, Hematocrit 29.8 #L, Mean Corpuscular Volume 100H, Mean Corpuscular Hemoglobin 32.9H, Mean Corpuscular Hemoglobin Concent 33.0, Red Cell Distribution Width 17.6H, Platelet Count 172, Mean Platelet Volume 5.8L, Neutrophils (%) (Auto) 62.7, Lymphocytes (%) (Auto) 24.8, Monocytes (%) (Auto) 10.2H, Eosinophils (%) (Auto) 0.9, Basophils (%) (Auto) 1.4, Erythrocyte Sedimentation Rate 72H, Reticulocyte Count 1.5, Sodium Level 147H, Potassium Level 3.9, Chloride Level 109H, Carbon Dioxide Level 23, Anion Gap 15, Blood Urea Nitrogen 50H, Creatinine 0.7, Estimat Glomerular Filtration Rate , Glucose Level 88, Calcium Level 7.9L, Iron Level 223H, Total Iron Binding Capacity 253, Percent Iron Saturation 88H, Unsaturated Iron Binding 30L, Soluble Transferrin Receptor [Pending], Ferritin 71, C-Reactive Protein, Quantitative < 0.3, Vitamin B12 Level 766, Folate [ Pending] 05/05/16 03:00: White Blood Count 8.0, Red Blood Count 2.95L, Hemoglobin 9.8L, Hematocrit 29.4L , Mean Corpuscular Volume 100H, Mean Corpuscular Hemoglobin 33.4H, Mean Corpuscular Hemoglobin Concent 33.5, Red Cell Distribution Width 18.1H, Platelet Count 158, Mean Platelet Volume 6.2L, Neutrophils (%) (Auto) 58.7, Lymphocytes (%) (Auto) 27.5, Monocytes (%) (Auto) 10.2H, Eosinophils (%) (Auto) 2.1, Basophils (%) (Auto) 1.5, Sodium Level 151H, Potassium Level 3.8, Chloride Level 114H, Carbon Dioxide Level 23, Anion Gap 14, Blood Urea Nitrogen 33H, Creatinine 0.7, Estimat Glomerular Filtration Rate , Glucose Level 73L, Calcium Level 8.1L, Prothrombin Time 11.1, Prothromb Time International Ratio 1.1, Activated Partial Thromboplast Time 24, Phosphorus Level 3.6, Magnesium Level 2.2, Total Bilirubin 0.4, Aspartate Amino Transf (AST/SGOT) 20, Alanine Aminotransferase (ALT/SGPT) 12, Alkaline Phosphatase 55, Total Protein 5.7L, Albumin 2.8L, Globulin 2.9, Albumin/Globulin Ratio 0.9L Height (Feet): 4 Height (Inches): 10.00 Weight (Pounds): 148 General Appearance: no apparent distress EENT: TMs normal Neck: supple Cardiovascular: regular rhythm Respiratory/Chest: normal breath sounds Abdomen: soft Extremities: non-tender Edema: 1+ Leg (L), 1+ Leg (R) Edema: mild edema Neurologic: alert Skin: warm/dry Quique Vanegas May 05, 2016 07:00
--- NOTE | 2016-05-05 07:14 | Anethesia Preoperative Eval ---
Anesthesia Pre-op PMH/ROS General Date of Evaluation: May 05, 2016 Anesthesiologist: Dejon ASA Score: ASA 4 Mallampati Score Class I : Soft palate, uvula, fauces, pillars visible Class II: Soft palate, uvula, fauces visible Class III: Soft palate, base of uvula visible Class IV: Only hard plate visible Mallampati Classification: Class II Surgeon: Laura Diagnosis: ? GI bleed Surgical Procedure: EGD Anesthesia History: none Family History: no anesthesia problems Allergies: Coded Allergies: CLARITHROMYCIN (Verified Allergy, Unknown, 05/04/16) DEXTROMETHORPHAN (Verified Allergy, Unknown, 05/04/16) MACROLIDE ANTIBIOTICS (Verified Allergy, Unknown, 05/04/16) PENICILLINS (Verified Allergy, Unknown, 05/04/16) Uncoded Allergies: KETOLIDES (Allergy, Unknown, 05/04/16) RED DYES (Allergy, Unknown, 05/04/16) TARTRAZINE (Allergy, Unknown, 05/04/16) YELLOW DYE-NON TARTRAZINE (Allergy, Unknown, 05/04/16) Medications: see eMAR Past Medical History Cardiovascular: Reports: CAD, HTN, arrhythmia, other - CHF, severe Aortic stenosis with valve are of 0.6cm2, and severe mitral regurgitation, Denies: [place], valve dz Pulmonary: Reports: COPD, Denies: MABLE, asthma, other Gastrointestinal/Genitourinary: Reports: GERD, other - uterine cancer, acute on chronic renal insufficiency, Denies: CRI, ESRD Neurologic/Psychiatric: Reports: dementia, Denies: CVA, TIA, depression/anxiety, other Endocrine: Reports: hypothyroidism, Denies: DM, other, steroids HEENT: Denies: [place] (L), [place] (R), cataract (L), cataract (R), glaucoma, other Hematology/Immune: Reports: anemia, Denies: DVT, bleeding disorder, other Musculoskeletal/Integumentary: Reports: DJD, OA, other - RA, Denies: DDD, RA, edema Anesthesia Pre-op Phys. Exam Physician Exam Last Vital Signs Date Time Temp Pulse Resp B/P Pulse Ox O2 Delivery O2 Flow Rate FiO2 05/05/16 04:00 98.2 123 20 95/63 97 Room Air Constitutional: NAD Cardiovascular: other - tachycardic, irrgular Respiratory: other - bilatral crackles Airway Exam Mallampati Score: Class II Anesthesia Pre-op A/P Labs Hematology Test 05/04/16 13:35 05/05/16 03:00 White Blood Count 10.0 K/UL (4.8-10.8) 8.0 K/UL (4.8-10.8) Red Blood Count 2.99 M/UL (4.20-5.40) L 2.95 M/UL (4.20-5.40) L Hemoglobin 9.8 G/DL (12.0-16.0) #L 9.8 G/DL (12.0-16.0) L Hematocrit 29.8 % (37.0-47.0) #L 29.4 % (37.0-47.0) L Mean Corpuscular Volume 100 FL (80-99) H 100 FL (80-99) H Mean Corpuscular Hemoglobin 32.9 PG (27.0-31.0) H 33.4 PG (27.0-31.0) H Mean Corpuscular Hemoglobin Concent 33.0 G/DL (32.0-36.0) 33.5 G/DL (32.0-36.0) Red Cell Distribution Width 17.6 % (11.6-14.8) H 18.1 % (11.6-14.8) H Platelet Count 172 K/UL (150-450) 158 K/UL (150-450) Mean Platelet Volume 5.8 FL (6.5-10.1) L 6.2 FL (6.5-10.1) L Neutrophils (%) (Auto) 62.7 % (45.0-75.0) 58.7 % (45.0-75.0) Lymphocytes (%) (Auto) 24.8 % (20.0-45.0) 27.5 % (20.0-45.0) Monocytes (%) (Auto) 10.2 % (1.0-10.0) H 10.2 % (1.0-10.0) H Eosinophils (%) (Auto) 0.9 % (0.0-3.0) 2.1 % (0.0-3.0) Basophils (%) (Auto) 1.4 % (0.0-2.0) 1.5 % (0.0-2.0) Erythrocyte Sedimentation Rate 72 MM/HR (0-42) H Reticulocyte Count 1.5 % (0.0-2.0) Coagulation Test 05/05/16 03:00 Prothrombin Time 11.1 SEC (9.30-11.50) Prothromb Time International Ratio 1.1 (0.9-1.1) Activated Partial Thromboplast Time 24 SEC (23-33) Chemistry Test 05/04/16 13:35 05/05/16 03:00 Sodium Level 147 mEQ/L (135-145) H 151 mEQ/L (135-145) H Potassium Level 3.9 mEQ/L (3.4-4.9) 3.8 mEQ/L (3.4-4.9) Chloride Level 109 mEQ/L (98-107) H 114 mEQ/L (98-107) H Carbon Dioxide Level 23 mEQ/L (20-30) 23 mEQ/L (20-30) Anion Gap 15 (5-15) 14 (5-15) Blood Urea Nitrogen 50 mg/dL (7-23) H 33 mg/dL (7-23) H Creatinine 0.7 mg/dL (0.5-0.9) 0.7 mg/dL (0.5-0.9) Estimat Glomerular Filtration Rate mL/min (>60) mL/min (>60) Glucose Level 88 mg/dL (74-106) 73 mg/dL (74-106) L Calcium Level 7.9 mg/dL (8.6-10.2) L 8.1 mg/dL (8.6-10.2) L Iron Level 223 ug/dL (37-145) H Total Iron Binding Capacity 253 ug/dL (250-400) Percent Iron Saturation 88 % (15-50) H Unsaturated Iron Binding 30 ug/dL (112-346) L Soluble Transferrin Receptor Pending Ferritin 71 ng/mL (13-150) C-Reactive Protein, Quantitative < 0.3 mg/dL (< 0.5) Vitamin B12 Level 766 pg/mL (211-946) Folate Pending Phosphorus Level 3.6 mg/dL (2.5-4.8) Magnesium Level 2.2 mg/dL (1.7-2.5) Total Bilirubin 0.4 mg/dL (0.0-1.2) Aspartate Amino Transf (AST/SGOT) 20 U/L (5-40) Alanine Aminotransferase (ALT/SGPT) 12 U/L (3-33) Alkaline Phosphatase 55 U/L (35-104) Total Protein 5.7 g/dL (6.6-8.7) L Albumin 2.8 g/dL (3.5-5.2) L Globulin 2.9 g/dL Albumin/Globulin Ratio 0.9 (1.0-2.7) L Risk Assessment & Plan Assessment: ASA IV Plan: MAC Status Change Before Surgery: Yes - Patient with history of CAD, CHF, severe aortic stenois (valve area of 0.6), severe MR and multiple ofther comorbities. Currently tachycardic to the 130s-140s and hypotensive. Patient requires rate cotrol, PRN PRBC transfusion and medical optimization prior to administration of anesthesia as she will not tolerate the procedure/anesthesia well at this time considering the tachycardia and hypotension. Anesthesia is on board to perform procedure later today or once deemed fit by GI with the possibility of prolonged intubataion, neeed to start pressors, and even the possibility of cardiac arrest and . Pre-Antibiotics Drug: N/A ALMA LARSON M.D. May 05, 2016 07:14
[2016-05-05 08:29] VITALS: BP 113/73
[2016-05-05] MEDS: Memantine 10mg tab ORAL SCH ×2 (08:35→17:21)
[2016-05-05] MEDS: Pantoprazole Inj IVP SCH ×2 (08:35→21:46)
[2016-05-05] MEDS: Metoprolol 25mg tab ORAL SCH ×2 (08:35→21:46)
[2016-05-05 11:31] VITALS: BP 113/80
--- NOTE | 2016-05-05 13:32 | Pulmonology Progress Note ---
Assessment/Plan Problems: (1) UGIB (upper gastrointestinal bleed) (2) Atrial fibrillation (3) Anemia Assessment/Plan h/h stable s/p prbc cardiology f/u watch hr endoscopy when hR better controlled Subjective Interval Events: no more hematemesis Allergies: Coded Allergies: CLARITHROMYCIN (Verified Allergy, Unknown, 05/04/16) DEXTROMETHORPHAN (Verified Allergy, Unknown, 05/04/16) MACROLIDE ANTIBIOTICS (Verified Allergy, Unknown, 05/04/16) PENICILLINS (Verified Allergy, Unknown, 05/04/16) Uncoded Allergies: KETOLIDES (Allergy, Unknown, 05/04/16) RED DYES (Allergy, Unknown, 05/04/16) TARTRAZINE (Allergy, Unknown, 05/04/16) YELLOW DYE-NON TARTRAZINE (Allergy, Unknown, 05/04/16) Objective Last 24 Hour Vital Signs Date Time Temp Pulse Resp B/P Pulse Ox O2 Delivery O2 Flow Rate FiO2 05/05/16 11:31 97.7 110 20 113/80 96 Room Air 05/05/16 08:35 113 113/73 05/05/16 08:29 97.7 127 20 113/73 95 Room Air 05/05/16 04:00 98.2 123 20 95/63 97 Room Air 05/05/16 04:00 124 05/05/16 00:00 99.1 120 20 100/66 95 Room Air 05/05/16 00:00 126 05/04/16 21:48 99.3 05/04/16 20:46 126 113/74 05/04/16 20:00 127 05/04/16 20:00 99.3 122 20 115/69 94 Room Air 05/04/16 17:39 126 113/74 05/04/16 16:15 98.2 126 20 113/74 95 Room Air 05/04/16 16:00 126 Intake and Output 05/04/16 05/05/16 19:00 07:00 Output Total 300 ml 750 ml Balance -300 ml -750 ml Output Urine Total 300 ml 750 ml Objective General Appearance: WD/WN HEENT: normocephalic, atraumatic Respiratory/Chest: chest wall non-tender, lungs clear Breasts: no masses Cardiovascular: normal peripheral pulses, normal rate, regular rhythm Abdomen: normal bowel sounds, soft, non tender, no organomegaly, non distended Genitourinary: normal external genitalia Skin: no rash, no lesions 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 Lymphatic: no neck adenopathy Microbiology Date/Time Source Procedure Growth Status 05/04/16 01:00 Arm Left Blood Culture - Preliminary Resulted 05/04/16 00:45 Arm Left Blood Culture - Preliminary NO GROWTH AFTER 24 HOURS Resulted Laboratory Tests 05/04/16 13:35: White Blood Count 10.0, Red Blood Count 2.99L, Hemoglobin 9.8#L, Hematocrit 29.8 #L, Mean Corpuscular Volume 100H, Mean Corpuscular Hemoglobin 32.9H, Mean Corpuscular Hemoglobin Concent 33.0, Red Cell Distribution Width 17.6H, Platelet Count 172, Mean Platelet Volume 5.8L, Neutrophils (%) (Auto) 62.7, Lymphocytes (%) (Auto) 24.8, Monocytes (%) (Auto) 10.2H, Eosinophils (%) (Auto) 0.9, Basophils (%) (Auto) 1.4, Erythrocyte Sedimentation Rate 72H, Reticulocyte Count 1.5, Sodium Level 147H, Potassium Level 3.9, Chloride Level 109H, Carbon Dioxide Level 23, Anion Gap 15, Blood Urea Nitrogen 50H, Creatinine 0.7, Estimat Glomerular Filtration Rate , Glucose Level 88, Calcium Level 7.9L, Iron Level 223H, Total Iron Binding Capacity 253, Percent Iron Saturation 88H, Unsaturated Iron Binding 30L, Soluble Transferrin Receptor [Pending], Ferritin 71, C-Reactive Protein, Quantitative < 0.3, Vitamin B12 Level 766, Folate 16.1 05/05/16 03:00: White Blood Count 8.0, Red Blood Count 2.95L, Hemoglobin 9.8L, Hematocrit 29.4L , Mean Corpuscular Volume 100H, Mean Corpuscular Hemoglobin 33.4H, Mean Corpuscular Hemoglobin Concent 33.5, Red Cell Distribution Width 18.1H, Platelet Count 158, Mean Platelet Volume 6.2L, Neutrophils (%) (Auto) 58.7, Lymphocytes (%) (Auto) 27.5, Monocytes (%) (Auto) 10.2H, Eosinophils (%) (Auto) 2.1, Basophils (%) (Auto) 1.5, Sodium Level 151H, Potassium Level 3.8, Chloride Level 114H, Carbon Dioxide Level 23, Anion Gap 14, Blood Urea Nitrogen 33H, Creatinine 0.7, Estimat Glomerular Filtration Rate , Glucose Level 73L, Calcium Level 8.1L, Prothrombin Time 11.1, Prothromb Time International Ratio 1.1, Activated Partial Thromboplast Time 24, Phosphorus Level 3.6, Magnesium Level 2.2, Total Bilirubin 0.4, Aspartate Amino Transf (AST/SGOT) 20, Alanine Aminotransferase (ALT/SGPT) 12, Alkaline Phosphatase 55, Total Protein 5.7L, Albumin 2.8L, Globulin 2.9, Albumin/Globulin Ratio 0.9L Current Medications Medications (Trade) Dose Ordered Sig/Amy Route PRN Reason Start Time Stop Time Status Last Admin Dose Admin Acetaminophen (Tylenol) 650 mg Q6H PRN ORAL Mild Pain/Temp > 100.5 05/04/16 18:00 06/03/16 17:59 05/04/16 20:49 Lorazepam (Ativan) 0.5 mg BIDPRN PRN ORAL For Anxiety 05/04/16 08:30 05/11/16 08:29 05/04/16 17:21 Memantine (Namenda) 10 mg BID ORAL 05/04/16 09:00 06/03/16 08:59 05/05/16 08:35 Metoprolol Tartrate (Lopressor) 25 mg Q12HR ORAL 05/05/16 09:00 06/04/16 08:59 05/05/16 08:35 Ondansetron HCl (Zofran) 4 mg Q6H PRN IVP Nausea & Vomiting 05/04/16 08:30 06/03/16 08:29 Pantoprazole (Protonix) 40 mg EVERY 12 HOURS IVP 05/04/16 09:00 06/03/16 08:59 05/05/16 08:35 NAPOLEON JI May 05, 2016 13:32
--- NOTE | 2016-05-05 14:13 | Cardiology Report ---
APPROVED REPORT EXAM: Two-dimensional and M-mode echocardiogram with Doppler and color Doppler. INDICATION Peripheral Edema Atrial Fibrillation M-Mode DIMENSIONS IVSd1.1 (0.7-1.1cm)Left Atrium (MM)5.7 (1.6-4.0cm) LVDd4.0 (3.5-5.6cm)Aortic Root2.2 (2.0-3.7cm) PWd0.7 (0.7-1.1cm)Aortic Cusp Exc.0.8 (1.5-2.0cm) LVDs1.9 (2.5-4.0cm) PWs1.1 cm Technically difficult study due to poor acoustic windows. Study quality precludes accurate assessment of regional wall motion. Normal left ventricular chamber size, systolic function and wall motion. Left ventricular ejection fraction estimated to be 55 %. No evidence of ventricular hypertrophy. No evidence of pericardial fat or effusion. SEVERE left atrial enlargement. Right cardiac chamber sizes are within normal limits. Aortic valve calcification with decreased cusp excursion c/w aortic stenosis. Mildly thickened mitral valve leaflets with normal excursion. Mild mitral annulus and aortic root calcification. Pulmonic valve not well visualized. Normal tricuspid valve structure. A color flow and spectral Doppler study was performed and revealed: No aortic regurgitation. Peak aortic valve gradient of 41 mmHg and a mean of 22 mmHg. Aortic valve area 0.6 cm2 calculated by continuity equation. Moderate to severe mitral regurgitation. Left ventricular diastolic function could not be determined due to A-Fib. Moderate tricuspid regurgitation. Tricuspid systolic velocities suggests peak right ventricular systolic pressure of 77 mmHg, consistent with severe pulmonary hypertension. Trace pulmonic regurgitation present.
--- NOTE | 2016-05-05 15:16 | Diagnostic Imaging Report ---
Indication: DYSPNEA Technique: One view of the chest Comparison: none Findings: There are degenerative changes of both shoulders. Patient is rotated to the right. There is bilateral perihilar atelectasis. There may be some particular infrahilar infiltrate on the left Lungs and pleural spaces are otherwise clear. The heart is mildly enlarged. The aorta is tortuous and calcified Impression: Bilateral perihilar atelectasis, possible minimal reticular left infrahilar infiltrate. Cardiomegaly
--- NOTE | 2016-05-05 15:29 | General Progress Note ---
Assessment/Plan Problem List: (1) Coffee ground emesis ICD Codes: K92.0 - Hematemesis SNOMED: 87330631 (2) Hypoalbuminemia ICD Codes: E88.09 - Other disorders of plasma-protein metabolism, not elsewhere classified SNOMED: 144000254 (3) Leukocytosis ICD Codes: D72.829 - Elevated white blood cell count, unspecified SNOMED: 835256882, 739267288 (4) Atrial fibrillation ICD Codes: I48.91 - Unspecified atrial fibrillation SNOMED: 00089712 (5) UGIB (upper gastrointestinal bleed) ICD Codes: K92.2 - Gastrointestinal hemorrhage, unspecified SNOMED: 71705833 (6) Anemia ICD Codes: D64.9 - Anemia, unspecified SNOMED: 520534534 Qualifiers: Qualified Codes: D64.9 - Anemia, unspecified Assessment/Plan EGD was canceled by anesthesia today stable H&H ppi fu stool ob EGD when patient is more stable Subjective ROS Limited/Unobtainable: No Allergies: Coded Allergies: CLARITHROMYCIN (Verified Allergy, Unknown, 05/04/16) DEXTROMETHORPHAN (Verified Allergy, Unknown, 05/04/16) MACROLIDE ANTIBIOTICS (Verified Allergy, Unknown, 05/04/16) PENICILLINS (Verified Allergy, Unknown, 05/04/16) Uncoded Allergies: KETOLIDES (Allergy, Unknown, 05/04/16) RED DYES (Allergy, Unknown, 05/04/16) TARTRAZINE (Allergy, Unknown, 05/04/16) YELLOW DYE-NON TARTRAZINE (Allergy, Unknown, 05/04/16) Objective Last 24 Hour Vital Signs Date Time Temp Pulse Resp B/P Pulse Ox O2 Delivery O2 Flow Rate FiO2 05/05/16 11:54 123 05/05/16 11:31 97.7 110 20 113/80 96 Room Air 05/05/16 08:35 113 113/73 05/05/16 08:29 97.7 127 20 113/73 95 Room Air 05/05/16 07:52 119 05/05/16 04:00 98.2 123 20 95/63 97 Room Air 05/05/16 04:00 124 05/05/16 00:00 99.1 120 20 100/66 95 Room Air 05/05/16 00:00 126 05/04/16 21:48 99.3 05/04/16 20:46 126 113/74 05/04/16 20:00 127 05/04/16 20:00 99.3 122 20 115/69 94 Room Air 05/04/16 17:39 126 113/74 05/04/16 16:15 98.2 126 20 113/74 95 Room Air 05/04/16 16:00 126 Intake and Output 05/04/16 05/05/16 19:00 07:00 Output Total 300 ml 750 ml Balance -300 ml -750 ml Output Urine Total 300 ml 750 ml Laboratory Tests 05/05/16 03:00: White Blood Count 8.0, Red Blood Count 2.95L, Hemoglobin 9.8L, Hematocrit 29.4L , Mean Corpuscular Volume 100H, Mean Corpuscular Hemoglobin 33.4H, Mean Corpuscular Hemoglobin Concent 33.5, Red Cell Distribution Width 18.1H, Platelet Count 158, Mean Platelet Volume 6.2L, Neutrophils (%) (Auto) 58.7, Lymphocytes (%) (Auto) 27.5, Monocytes (%) (Auto) 10.2H, Eosinophils (%) (Auto) 2.1, Basophils (%) (Auto) 1.5, Prothrombin Time 11.1, Prothromb Time International Ratio 1.1, Activated Partial Thromboplast Time 24, Sodium Level 151H, Potassium Level 3.8, Chloride Level 114H, Carbon Dioxide Level 23, Anion Gap 14, Blood Urea Nitrogen 33H, Creatinine 0.7, Estimat Glomerular Filtration Rate , Glucose Level 73L, Calcium Level 8.1L, Phosphorus Level 3.6, Magnesium Level 2.2, Total Bilirubin 0.4, Aspartate Amino Transf (AST/SGOT) 20, Alanine Aminotransferase (ALT/SGPT) 12, Alkaline Phosphatase 55, Total Protein 5.7L, Albumin 2.8L, Globulin 2.9, Albumin/Globulin Ratio 0.9L 05/05/16 11:00: Stool Occult Blood [Pending] Height (Feet): 4 Height (Inches): 10.00 Weight (Pounds): 148 General Appearance: no apparent distress EENT: normal ENT inspection Neck: supple Cardiovascular: normal rate Respiratory/Chest: decreased breath sounds Abdomen: normal bowel sounds, non tender, soft Extremities: non-tender HERRERA ANTUNEZ May 05, 2016 15:29
[2016-05-05 16:00] VITALS: BP 83/47
--- NOTE | 2016-05-05 16:22 | Internal Med Progress Note ---
Subjective Date of Service: May 05, 2016 Physician Name Jatinder Knight Attending Physician Galileo Quezada MD Current Medications Medications (Trade) Dose Ordered Sig/Amy Route PRN Reason Start Time Stop Time Status Last Admin Dose Admin Acetaminophen (Tylenol) 650 mg Q6H PRN ORAL Mild Pain/Temp > 100.5 05/04/16 18:00 06/03/16 17:59 05/04/16 20:49 Lorazepam (Ativan) 0.5 mg BIDPRN PRN ORAL For Anxiety 05/04/16 08:30 05/11/16 08:29 05/04/16 17:21 Memantine (Namenda) 10 mg BID ORAL 05/04/16 09:00 06/03/16 08:59 05/05/16 08:35 Metoprolol Tartrate (Lopressor) 25 mg Q12HR ORAL 05/05/16 09:00 06/04/16 08:59 05/05/16 08:35 Ondansetron HCl (Zofran) 4 mg Q6H PRN IVP Nausea & Vomiting 05/04/16 08:30 06/03/16 08:29 Pantoprazole (Protonix) 40 mg EVERY 12 HOURS IVP 05/04/16 09:00 06/03/16 08:59 05/05/16 08:35 Allergies: Coded Allergies: CLARITHROMYCIN (Verified Allergy, Unknown, 05/04/16) DEXTROMETHORPHAN (Verified Allergy, Unknown, 05/04/16) MACROLIDE ANTIBIOTICS (Verified Allergy, Unknown, 05/04/16) PENICILLINS (Verified Allergy, Unknown, 05/04/16) Uncoded Allergies: KETOLIDES (Allergy, Unknown, 05/04/16) RED DYES (Allergy, Unknown, 05/04/16) TARTRAZINE (Allergy, Unknown, 05/04/16) YELLOW DYE-NON TARTRAZINE (Allergy, Unknown, 05/04/16) ROS Limited/Unobtainable: Yes Subjective 85 YO F admitted with GI hemorrhage. S/P transfusion 2 units Packed RBC. Endoscopy scheduled for today cancelled by anesthesiology. Cover for Int Med- Dr Quezada. Objective Last Vital Signs Date Time Temp Pulse Resp B/P Pulse Ox O2 Delivery O2 Flow Rate FiO2 05/05/16 11:54 123 05/05/16 11:31 97.7 20 113/80 96 Room Air General Appearance: WD/WN, no apparent distress EENT: PERRL/EOMI, normal ENT inspection Neck: non-tender, normal alignment, supple Cardiovascular: normal peripheral pulses, no gallop/murmur, no JVD, tachycardia , irregularly irregular Respiratory/Chest: chest wall non-tender, lungs clear, normal breath sounds, no respiratory distress, no accessory muscle use Abdomen: soft, decreased bowel sounds, guarding, tender Extremities: normal range of motion Skin: normal pigmentation, warm/dry Laboratory Tests Test 05/05/16 03:00 05/05/16 11:00 White Blood Count 8.0 K/UL (4.8-10.8) Red Blood Count 2.95 M/UL (4.20-5.40) L Hemoglobin 9.8 G/DL (12.0-16.0) L Hematocrit 29.4 % (37.0-47.0) L Mean Corpuscular Volume 100 FL (80-99) H Mean Corpuscular Hemoglobin 33.4 PG (27.0-31.0) H Mean Corpuscular Hemoglobin Concent 33.5 G/DL (32.0-36.0) Red Cell Distribution Width 18.1 % (11.6-14.8) H Platelet Count 158 K/UL (150-450) Mean Platelet Volume 6.2 FL (6.5-10.1) L Neutrophils (%) (Auto) 58.7 % (45.0-75.0) Lymphocytes (%) (Auto) 27.5 % (20.0-45.0) Monocytes (%) (Auto) 10.2 % (1.0-10.0) H Eosinophils (%) (Auto) 2.1 % (0.0-3.0) Basophils (%) (Auto) 1.5 % (0.0-2.0) Prothrombin Time 11.1 SEC (9.30-11.50) Prothromb Time International Ratio 1.1 (0.9-1.1) Activated Partial Thromboplast Time 24 SEC (23-33) Sodium Level 151 mEQ/L (135-145) H Potassium Level 3.8 mEQ/L (3.4-4.9) Chloride Level 114 mEQ/L (98-107) H Carbon Dioxide Level 23 mEQ/L (20-30) Anion Gap 14 (5-15) Blood Urea Nitrogen 33 mg/dL (7-23) H Creatinine 0.7 mg/dL (0.5-0.9) Estimat Glomerular Filtration Rate mL/min (>60) Glucose Level 73 mg/dL (74-106) L Calcium Level 8.1 mg/dL (8.6-10.2) L Phosphorus Level 3.6 mg/dL (2.5-4.8) Magnesium Level 2.2 mg/dL (1.7-2.5) Total Bilirubin 0.4 mg/dL (0.0-1.2) Aspartate Amino Transf (AST/SGOT) 20 U/L (5-40) Alanine Aminotransferase (ALT/SGPT) 12 U/L (3-33) Alkaline Phosphatase 55 U/L (35-104) Total Protein 5.7 g/dL (6.6-8.7) L Albumin 2.8 g/dL (3.5-5.2) L Globulin 2.9 g/dL Albumin/Globulin Ratio 0.9 (1.0-2.7) L Stool Occult Blood Pending Microbiology Date/Time Source Procedure Growth Status 05/04/16 01:00 Arm Left Blood Culture - Preliminary Resulted 05/04/16 00:45 Arm Left Blood Culture - Preliminary NO GROWTH AFTER 24 HOURS Resulted Intake and Output 05/04/16 05/05/16 19:00 07:00 Output Total 300 ml 750 ml Balance -300 ml -750 ml Output Urine Total 300 ml 750 ml Assessment/Plan Problem List: (1) Generalized weakness (2) Vertigo (3) CAD (coronary artery disease) (4) HTN (hypertension) Assessment & Plan: Cont metoprolol (5) CHF (congestive heart failure) (6) Alzheimer's dementia (7) Aortic stenosis (8) Tachycardia Assessment & Plan: Due to Atrial fibrillation-see cardiology note. (9) UGIB (upper gastrointestinal bleed) Assessment & Plan: Endoscopy scheduled for today was cancelled by anesthesiology. See GI note. (10) Anemia Assessment & Plan: Due to GI bleed. S/P transfusion 2 units PRBC. (11) Atrial fibrillation Assessment & Plan: Rapid ventricular rate. See cardiology note-Dr Lawrence. (12) Coffee ground emesis Status: not improved JATINDER KNIGHT May 05, 2016 16:22
[2016-05-05] MEDS ORDERED: Digoxin 0.5mg/2ml Inj IVP ONE ×2 (19:30→23:30)
--- NOTE | 2016-05-05 19:30 | Cardiac Electrophysiology PN ---
Assessment/Plan Assessment/Plan 1. Atrial fibrillation and flutter with rapid ventricular rates. S/P 2 units of PRBC. She does not appear with any evidence for congestive heart failure or acute coronary syndrome based on EKG and troponin levels. On metoprolol 25 bid but low BP would not allow increasing the dosage. She is not a candidate for cardioversion given the persistent atrial fibrillation and is not a candidate for anticoagulation due to gastrointestinal bleeding. She is at acceptable risk from a cardiovascular standpoint for upper endoscopy. Will Give IV digoxin to get the rate better controlled. 2. GI bleed, s/p PRBC. EGD pending. TAMELA RN Subjective Subjective Very weak. Still NPO for EGD but still in atrial fib with RVR 160s. BP in 80s Objective Last 24 Hour Vital Signs Date Time Temp Pulse Resp B/P Pulse Ox O2 Delivery O2 Flow Rate FiO2 05/05/16 16:00 98.2 92 19 83/47 95 Room Air 05/05/16 11:54 123 05/05/16 11:31 97.7 110 20 113/80 96 Room Air 05/05/16 08:35 113 113/73 05/05/16 08:29 97.7 127 20 113/73 95 Room Air 05/05/16 07:52 119 05/05/16 04:00 98.2 123 20 95/63 97 Room Air 05/05/16 04:00 124 05/05/16 00:00 99.1 120 20 100/66 95 Room Air 05/05/16 00:00 126 05/04/16 21:48 99.3 05/04/16 20:46 126 113/74 05/04/16 20:00 127 05/04/16 20:00 99.3 122 20 115/69 94 Room Air Intake and Output 05/04/16 05/05/16 19:00 07:00 Output Total 300 ml 750 ml Balance -300 ml -750 ml Output Urine Total 300 ml 750 ml Laboratory Tests Test 05/05/16 03:00 05/05/16 11:00 White Blood Count 8.0 K/UL (4.8-10.8) Red Blood Count 2.95 M/UL (4.20-5.40) L Hemoglobin 9.8 G/DL (12.0-16.0) L Hematocrit 29.4 % (37.0-47.0) L Mean Corpuscular Volume 100 FL (80-99) H Mean Corpuscular Hemoglobin 33.4 PG (27.0-31.0) H Mean Corpuscular Hemoglobin Concent 33.5 G/DL (32.0-36.0) Red Cell Distribution Width 18.1 % (11.6-14.8) H Platelet Count 158 K/UL (150-450) Mean Platelet Volume 6.2 FL (6.5-10.1) L Neutrophils (%) (Auto) 58.7 % (45.0-75.0) Lymphocytes (%) (Auto) 27.5 % (20.0-45.0) Monocytes (%) (Auto) 10.2 % (1.0-10.0) H Eosinophils (%) (Auto) 2.1 % (0.0-3.0) Basophils (%) (Auto) 1.5 % (0.0-2.0) Prothrombin Time 11.1 SEC (9.30-11.50) Prothromb Time International Ratio 1.1 (0.9-1.1) Activated Partial Thromboplast Time 24 SEC (23-33) Sodium Level 151 mEQ/L (135-145) H Potassium Level 3.8 mEQ/L (3.4-4.9) Chloride Level 114 mEQ/L (98-107) H Carbon Dioxide Level 23 mEQ/L (20-30) Anion Gap 14 (5-15) Blood Urea Nitrogen 33 mg/dL (7-23) H Creatinine 0.7 mg/dL (0.5-0.9) Estimat Glomerular Filtration Rate mL/min (>60) Glucose Level 73 mg/dL (74-106) L Calcium Level 8.1 mg/dL (8.6-10.2) L Phosphorus Level 3.6 mg/dL (2.5-4.8) Magnesium Level 2.2 mg/dL (1.7-2.5) Total Bilirubin 0.4 mg/dL (0.0-1.2) Aspartate Amino Transf (AST/SGOT) 20 U/L (5-40) Alanine Aminotransferase (ALT/SGPT) 12 U/L (3-33) Alkaline Phosphatase 55 U/L (35-104) Total Protein 5.7 g/dL (6.6-8.7) L Albumin 2.8 g/dL (3.5-5.2) L Globulin 2.9 g/dL Albumin/Globulin Ratio 0.9 (1.0-2.7) L Stool Occult Blood Pending Microbiology Date/Time Source Procedure Growth Status 05/04/16 01:00 Arm Left Blood Culture - Preliminary Resulted 05/04/16 00:45 Arm Left Blood Culture - Preliminary NO GROWTH AFTER 24 HOURS Resulted Objective HEENT: No JVD LUNGS: Clear to auscultation bilaterally. HEART: Irregularly irregular. Tachycardic. S1 and S2 with a 2/6 systolic ejection murmur heard at the right second intercostal space radiating across the left sternal border. ABDOMEN: Soft and nontender. No palpable mass. EXTREMITIES: A 1+ pedal and ankle edema bilaterally. SKIN: No rashes or lesions. CLAIRE KEY May 05, 2016 19:30
[2016-05-05 20:00] VITALS: BP 99/58
[2016-05-06] VITALS (9 sets, daily range): BP systolic 94–117; BP diastolic 46–76
[2016-05-06] MEDS ORDERED: Digoxin 0.5mg/2ml Inj IVP ONE (03:30)
[2016-05-06] MEDS: Pantoprazole Inj IVP SCH ×2 (08:57→21:45)
[2016-05-06] MEDS: Memantine 10mg tab ORAL SCH ×2 (08:57→18:21)
[2016-05-06] MEDS: Metoprolol 25mg tab ORAL SCH ×2 (08:57→21:00)
[2016-05-06 09:50] LABS: BASOPHILS % (AUTO) 1.5 % (0.0-2.0); EOSINOPHILS % (AUTO) 0.8 % (0.0-3.0); LYMPHOCYTES % (AUTO) 19.8 % (20.0-45.0); MEAN CORPUSCULAR HEMOGLOBIN 33.7 PG (27.0-31.0); MEAN CORPUSCULAR HGB CONC 32.5 G/DL (32.0-36.0); MEAN CORPUSCULAR VOLUME 104 FL (80-99); MEAN PLATELET VOLUME 6.2 FL (6.5-10.1); MONOCYTES % (AUTO) 9.1 % (1.0-10.0); NEUTROPHILS % (AUTO) 68.9 % (45.0-75.0); PLATELET COUNT 147 K/UL (150-450); RED BLOOD COUNT 2.75 M/UL (4.20-5.40); RED CELL DISTRIBUTION WIDTH 17.1 % (11.6-14.8); WHITE BLOOD COUNT 11.8 K/UL (4.8-10.8)
[2016-05-06 09:52] LABS: INR 1.1 (0.9-1.1); PROTHROMBIN TIME 11.6 SEC (9.30-11.50)
[2016-05-06] MEDS ORDERED: Tubing Blood Filter IV ONE (09:57)
[2016-05-06] MEDS ORDERED: NS 275ml ONE (09:57)
[2016-05-06 10:12] LABS: ALANINE AMINOTRANSFERASE 15 U/L (3-33); ALBUMIN/GLOBULIN RATIO 1.2 (1.0-2.7); ANION GAP 19 (5-15); ASPARTATE AMINO TRANSFERASE 27 U/L (5-40); CALCIUM 8.2 mg/dL (8.6-10.2); CARBON DIOXIDE 20 mEQ/L (20-30); CHLORIDE 106 mEQ/L (98-107); CREATININE 0.8 mg/dL (0.5-0.9); HEMOLYSIS 8; MAGNESIUM 2.1 mg/dL (1.7-2.5); PHOSPHORUS 3.7 mg/dL (2.5-4.8); POTASSIUM 4.1 mEQ/L (3.4-4.9); SODIUM 145 mEQ/L (135-145); TOTAL PROTEIN 5.5 g/dL (6.6-8.7)
--- NOTE | 2016-05-06 10:31 | General Progress Note ---
Assessment/Plan Problem List: (1) Coffee ground emesis ICD Codes: K92.0 - Hematemesis SNOMED: 69968533 (2) Hypoalbuminemia ICD Codes: E88.09 - Other disorders of plasma-protein metabolism, not elsewhere classified SNOMED: 063961461 (3) Leukocytosis ICD Codes: D72.829 - Elevated white blood cell count, unspecified SNOMED: 443002687, 678558066 (4) Atrial fibrillation ICD Codes: I48.91 - Unspecified atrial fibrillation SNOMED: 62279310 (5) UGIB (upper gastrointestinal bleed) ICD Codes: K92.2 - Gastrointestinal hemorrhage, unspecified SNOMED: 91707330 (6) Anemia ICD Codes: D64.9 - Anemia, unspecified SNOMED: 408070093 Qualifiers: Qualified Codes: D64.9 - Anemia, unspecified Assessment/Plan possible EGD today Subjective ROS Limited/Unobtainable: Yes Allergies: Coded Allergies: CLARITHROMYCIN (Verified Allergy, Unknown, 05/04/16) DEXTROMETHORPHAN (Verified Allergy, Unknown, 05/04/16) MACROLIDE ANTIBIOTICS (Verified Allergy, Unknown, 05/04/16) PENICILLINS (Verified Allergy, Unknown, 05/04/16) Uncoded Allergies: KETOLIDES (Allergy, Unknown, 05/04/16) RED DYES (Allergy, Unknown, 05/04/16) TARTRAZINE (Allergy, Unknown, 05/04/16) YELLOW DYE-NON TARTRAZINE (Allergy, Unknown, 05/04/16) Subjective no event Objective Last 24 Hour Vital Signs Date Time Temp Pulse Resp B/P Pulse Ox O2 Delivery O2 Flow Rate FiO2 05/06/16 08:57 105 104/60 05/06/16 08:00 97.2 120 17 104/60 98 Room Air 05/06/16 04:06 98.3 120 19 117/65 94 Room Air 05/06/16 04:00 105 05/06/16 03:39 117 05/06/16 00:39 98.2 114 18 112/76 95 Room Air 05/06/16 00:00 118 05/05/16 23:51 120 05/05/16 21:46 122 99/58 05/05/16 20:00 134 05/05/16 20:00 97.9 122 20 99/58 96 Room Air 05/05/16 19:37 163 05/05/16 16:00 125 05/05/16 16:00 98.2 92 19 83/47 95 Room Air 05/05/16 11:54 123 05/05/16 11:31 97.7 110 20 113/80 96 Room Air Intake and Output 05/05/16 05/06/16 19:00 07:00 Output Total 400 ml 801 ml Balance -400 ml -801 ml Output Urine Total 400 ml 800 ml Stool Total 1 ml # Bowel Movements 2 1 Laboratory Tests 05/05/16 11:00: Stool Occult Blood [Pending] 05/06/16 09:15: White Blood Count 11.8H, Red Blood Count 2.75L, Hemoglobin 9.3L, Hematocrit 28.4L, Mean Corpuscular Volume 104H, Mean Corpuscular Hemoglobin 33.7H, Mean Corpuscular Hemoglobin Concent 32.5, Red Cell Distribution Width 17.1H, Platelet Count 147L, Mean Platelet Volume 6.2L, Neutrophils (%) (Auto) 68.9, Lymphocytes (%) (Auto) 19.8L, Monocytes (%) (Auto) 9.1, Eosinophils (%) (Auto) 0.8, Basophils (%) (Auto) 1.5, Prothrombin Time 11.6H, Prothromb Time International Ratio 1.1, Activated Partial Thromboplast Time 25, Sodium Level 145, Potassium Level 4.1, Chloride Level 106, Carbon Dioxide Level 20, Anion Gap 19H, Blood Urea Nitrogen 22, Creatinine 0.8, Estimat Glomerular Filtration Rate , Glucose Level 68L, Calcium Level 8.2L, Phosphorus Level 3.7, Magnesium Level 2.1, Total Bilirubin 0.6, Aspartate Amino Transf (AST/SGOT) 27, Alanine Aminotransferase (ALT/SGPT) 15, Alkaline Phosphatase 61, Total Protein 5.5L, Albumin 3.1L, Globulin 2.4, Albumin/Globulin Ratio 1.2, Digoxin Level 3.1*H Height (Feet): 4 Height (Inches): 10.00 Weight (Pounds): 148 General Appearance: alert EENT: normal ENT inspection Neck: supple Cardiovascular: tachycardia Respiratory/Chest: decreased breath sounds Abdomen: normal bowel sounds, non tender, soft Extremities: non-tender HERRERA ANTUNEZ May 06, 2016 10:31
[2016-05-06] MEDS ORDERED: Lidocaine 1% MPF 10mg/ml 5ml ONE (12:00)
[2016-05-06] MEDS ORDERED: Propofol 10mg/ml 20ml IV ONE (12:00)
[2016-05-06] MEDS ORDERED: NS 550ML IV ONE (12:05)
[2016-05-06] MEDS ORDERED: TUBING IV ONE (12:05)
[2016-05-06] MEDS ORDERED: [UNRECOGNIZED DRUG - OTHER] IV ONE (12:05)
[2016-05-06 12:13] LABS: TRANSFERRIN SOLUBLE RECEPTOR 25.9 nmol/L (12.2-27.3)
--- NOTE | 2016-05-06 12:25 | Anethesia Preoperative Eval ---
Anesthesia Pre-op PMH/ROS General Date of Evaluation: May 06, 2016 Time of Evaluation: 12:05 Anesthesiologist: edvin ASA Score: ASA 4 Mallampati Score Class I : Soft palate, uvula, fauces, pillars visible Class II: Soft palate, uvula, fauces visible Class III: Soft palate, base of uvula visible Class IV: Only hard plate visible Mallampati Classification: Class II Surgeon: Harriett Diagnosis: PUD Surgical Procedure: EGD Family History: no anesthesia problems Allergies: Coded Allergies: CLARITHROMYCIN (Verified Allergy, Unknown, 05/04/16) DEXTROMETHORPHAN (Verified Allergy, Unknown, 05/04/16) MACROLIDE ANTIBIOTICS (Verified Allergy, Unknown, 05/04/16) PENICILLINS (Verified Allergy, Unknown, 05/04/16) Uncoded Allergies: KETOLIDES (Allergy, Unknown, 05/04/16) RED DYES (Allergy, Unknown, 05/04/16) TARTRAZINE (Allergy, Unknown, 05/04/16) YELLOW DYE-NON TARTRAZINE (Allergy, Unknown, 05/04/16) Past Medical History Cardiovascular: Reports: CAD, HTN Pulmonary: Reports: COPD Gastrointestinal/Genitourinary: Reports: GERD Neurologic/Psychiatric: Reports: dementia Endocrine: Denies: DM, hypothyroidism, other, steroids HEENT: Denies: [place] (L), [place] (R), cataract (L), cataract (R), glaucoma, other Hematology/Immune: Reports: anemia Musculoskeletal/Integumentary: Reports: DJD Anesthesia Pre-op Phys. Exam Physician Exam Last Vital Signs Date Time Temp Pulse Resp B/P Pulse Ox O2 Delivery O2 Flow Rate FiO2 05/06/16 08:57 105 104/60 05/06/16 08:00 97.2 17 98 Room Air Airway Exam Mallampati Score: Class II Anesthesia Pre-op A/P Labs Hematology Test 05/06/16 09:15 White Blood Count 11.8 K/UL (4.8-10.8) H Red Blood Count 2.75 M/UL (4.20-5.40) L Hemoglobin 9.3 G/DL (12.0-16.0) L Hematocrit 28.4 % (37.0-47.0) L Mean Corpuscular Volume 104 FL (80-99) H Mean Corpuscular Hemoglobin 33.7 PG (27.0-31.0) H Mean Corpuscular Hemoglobin Concent 32.5 G/DL (32.0-36.0) Red Cell Distribution Width 17.1 % (11.6-14.8) H Platelet Count 147 K/UL (150-450) L Mean Platelet Volume 6.2 FL (6.5-10.1) L Neutrophils (%) (Auto) 68.9 % (45.0-75.0) Lymphocytes (%) (Auto) 19.8 % (20.0-45.0) L Monocytes (%) (Auto) 9.1 % (1.0-10.0) Eosinophils (%) (Auto) 0.8 % (0.0-3.0) Basophils (%) (Auto) 1.5 % (0.0-2.0) Coagulation Test 05/06/16 09:15 Prothrombin Time 11.6 SEC (9.30-11.50) H Prothromb Time International Ratio 1.1 (0.9-1.1) Activated Partial Thromboplast Time 25 SEC (23-33) Chemistry Test 05/06/16 09:15 Sodium Level 145 mEQ/L (135-145) Potassium Level 4.1 mEQ/L (3.4-4.9) Chloride Level 106 mEQ/L (98-107) Carbon Dioxide Level 20 mEQ/L (20-30) Anion Gap 19 (5-15) H Blood Urea Nitrogen 22 mg/dL (7-23) Creatinine 0.8 mg/dL (0.5-0.9) Estimat Glomerular Filtration Rate mL/min (>60) Glucose Level 68 mg/dL (74-106) L Calcium Level 8.2 mg/dL (8.6-10.2) L Phosphorus Level 3.7 mg/dL (2.5-4.8) Magnesium Level 2.1 mg/dL (1.7-2.5) Total Bilirubin 0.6 mg/dL (0.0-1.2) Aspartate Amino Transf (AST/SGOT) 27 U/L (5-40) Alanine Aminotransferase (ALT/SGPT) 15 U/L (3-33) Alkaline Phosphatase 61 U/L (35-104) Total Protein 5.5 g/dL (6.6-8.7) L Albumin 3.1 g/dL (3.5-5.2) L Globulin 2.4 g/dL Albumin/Globulin Ratio 1.2 (1.0-2.7) MICHAEL ARENAS M.D. May 06, 2016 12:25
--- NOTE | 2016-05-06 12:29 | Endoscopy Procedure Note ---
Endoscopy Procedure Note Indication for Procedure: gib Procedures Performed: EGD Operative Findings/Diagnosis: gastritis Specimen: yes Pt Tolerated Procedure Well: Yes Estimated Blood Loss: none Anesthesiologist: althea Anesthesia: MAC Implant(s) used?: No 50 yrs or older w/o bx or poly: Not Applicable 10yrs. F/U not recommended: Not Applicable HERRERA ANTUNEZ May 06, 2016 12:29
--- NOTE | 2016-05-06 12:49 | Immediate Post-Op Evaluation ---
Immediate Post-Op Evalulation Immediate Post-Op Evalulation Procedure: EGD Date of Evaluation: May 06, 2016 Time of Evaluation: 12:48 IV Fluids: 300 Blood Products: 0 Estimated Blood Loss: 0 Urinary Output: 0 Blood Pressure Systolic: 130 Blood Pressure Diastolic: 80 Pulse Rate: 87 Respiratory Rate: 20 O2 Sat by Pulse Oximetry: 97 Temperature (Fahrenheit): 98 Pain Score (1-10): 2 Nausea: No Vomiting: No Complications na Patient Status: awake Hydration Status: adequate Given Within 1 Hr of Incision: MICHAEL Diaz M.D. May 06, 2016 12:49
--- NOTE | 2016-05-06 12:50 | 48 Hour Post Anesthesia Eval ---
Post Anesthesia Evaluation Procedure: EGD Date of Evaluation: May 06, 2016 Time of Evaluation: 13:30 Blood Pressure Systolic: 130 0: 80 Pulse Rate: 86 Respiratory Rate: 20 Temperature (Fahrenheit): 98 O2 Sat by Pulse Oximetry: 97 Airway: patent Nausea: No Vomiting: No Pain Intensity: 2 Hydration Status: adequate Cardiopulmonary Status: stable Mental Status/LOC: patient returned to baseline Follow-up Care/Observations: na Post-Anesthesia Complications: na Follow-up care needed: N/A MICHAEL ARENAS M.D. May 06, 2016 12:50
[2016-05-06] MEDS ORDERED: Ketorolac 30mg Inj IV PRN (13:00)
[2016-05-06] MEDS ORDERED: Norco 5mg/325mg tab ORAL PRN (13:00)
[2016-05-06] MEDS ORDERED: fentaNYL 100 mcg/2 mL IV PRN (13:00)
[2016-05-06] MEDS ORDERED: Hydromorphone 0.5mg/0.5ml inj IVP PRN (13:00)
[2016-05-06] MEDS: LORazepam 0.5mg tab ORAL PRN (15:05)
--- NOTE | 2016-05-06 15:29 | Internal Med Progress Note ---
Subjective Date of Service: May 06, 2016 Physician Name Jatinder Knight Attending Physician Galileo Quezada MD Current Medications Medications (Trade) Dose Ordered Sig/Amy Route PRN Reason Start Time Stop Time Status Last Admin Dose Admin Acetaminophen (Tylenol) 650 mg Q6H PRN ORAL Mild Pain/Temp > 100.5 05/04/16 18:00 06/03/16 17:59 05/06/16 15:06 Acetaminophen/ Hydrocodone Bitart (Boncarbo 5/325) 1 tab Q1H PRN ORAL Mild Pain (Pain Scale 1-3) 05/06/16 13:00 05/06/16 18:30 Fentanyl Citrate (Sublimaze 100 mcg/2 mL) 25 mcg Q10M PRN IV Moderate Pain (Pain Scale 4-6) 05/06/16 13:00 05/06/16 18:30 Hydromorphone HCl (Dilaudid) 0.5 mg Q15M PRN IVP Severe Pain (Pain Scale 7-10) 05/06/16 13:00 05/06/16 18:30 Ketorolac Tromethamine (Toradol 30mg) 15 mg Q1H PRN IV Moderate Breakthru Pain (5-7) 05/06/16 13:00 05/06/16 18:30 Lorazepam (Ativan) 0.5 mg BIDPRN PRN ORAL For Anxiety 05/04/16 08:30 05/11/16 08:29 05/06/16 15:05 Memantine (Namenda) 10 mg BID ORAL 05/04/16 09:00 06/03/16 08:59 05/06/16 08:57 Metoprolol Tartrate (Lopressor) 25 mg Q12HR ORAL 05/05/16 09:00 06/04/16 08:59 05/06/16 08:57 Ondansetron HCl (Zofran) 4 mg Q1H PRN IVP Nausea & Vomiting 05/06/16 13:00 05/06/16 18:30 Ondansetron HCl (Zofran) 4 mg Q6H PRN IVP Nausea & Vomiting 05/04/16 08:30 06/03/16 08:29 Pantoprazole (Protonix) 40 mg EVERY 12 HOURS IVP 05/04/16 09:00 06/03/16 08:59 05/06/16 08:57 Allergies: Coded Allergies: CLARITHROMYCIN (Verified Allergy, Unknown, 05/04/16) DEXTROMETHORPHAN (Verified Allergy, Unknown, 05/04/16) MACROLIDE ANTIBIOTICS (Verified Allergy, Unknown, 05/04/16) PENICILLINS (Verified Allergy, Unknown, 05/04/16) Uncoded Allergies: KETOLIDES (Allergy, Unknown, 05/04/16) RED DYES (Allergy, Unknown, 05/04/16) TARTRAZINE (Allergy, Unknown, 05/04/16) YELLOW DYE-NON TARTRAZINE (Allergy, Unknown, 05/04/16) ROS Limited/Unobtainable: Yes Subjective 85 YO F admitted with GI hemorrhage. S/P transfusion 2 units Packed RBC. S/P Endoscopy today 05/06/16. Cover for Int Med-Dr Quezada. Objective Last Vital Signs Date Time Temp Pulse Resp B/P Pulse Ox O2 Delivery O2 Flow Rate FiO2 05/06/16 13:00 97.6 60 26 106/52 100 Nasal Cannula 3.0 Laboratory Tests Test 05/06/16 09:15 White Blood Count 11.8 K/UL (4.8-10.8) H Red Blood Count 2.75 M/UL (4.20-5.40) L Hemoglobin 9.3 G/DL (12.0-16.0) L Hematocrit 28.4 % (37.0-47.0) L Mean Corpuscular Volume 104 FL (80-99) H Mean Corpuscular Hemoglobin 33.7 PG (27.0-31.0) H Mean Corpuscular Hemoglobin Concent 32.5 G/DL (32.0-36.0) Red Cell Distribution Width 17.1 % (11.6-14.8) H Platelet Count 147 K/UL (150-450) L Mean Platelet Volume 6.2 FL (6.5-10.1) L Neutrophils (%) (Auto) 68.9 % (45.0-75.0) Lymphocytes (%) (Auto) 19.8 % (20.0-45.0) L Monocytes (%) (Auto) 9.1 % (1.0-10.0) Eosinophils (%) (Auto) 0.8 % (0.0-3.0) Basophils (%) (Auto) 1.5 % (0.0-2.0) Prothrombin Time 11.6 SEC (9.30-11.50) H Prothromb Time International Ratio 1.1 (0.9-1.1) Activated Partial Thromboplast Time 25 SEC (23-33) Sodium Level 145 mEQ/L (135-145) Potassium Level 4.1 mEQ/L (3.4-4.9) Chloride Level 106 mEQ/L (98-107) Carbon Dioxide Level 20 mEQ/L (20-30) Anion Gap 19 (5-15) H Blood Urea Nitrogen 22 mg/dL (7-23) Creatinine 0.8 mg/dL (0.5-0.9) Estimat Glomerular Filtration Rate mL/min (>60) Glucose Level 68 mg/dL (74-106) L Calcium Level 8.2 mg/dL (8.6-10.2) L Phosphorus Level 3.7 mg/dL (2.5-4.8) Magnesium Level 2.1 mg/dL (1.7-2.5) Total Bilirubin 0.6 mg/dL (0.0-1.2) Aspartate Amino Transf (AST/SGOT) 27 U/L (5-40) Alanine Aminotransferase (ALT/SGPT) 15 U/L (3-33) Alkaline Phosphatase 61 U/L (35-104) Total Protein 5.5 g/dL (6.6-8.7) L Albumin 3.1 g/dL (3.5-5.2) L Globulin 2.4 g/dL Albumin/Globulin Ratio 1.2 (1.0-2.7) Digoxin Level 3.1 ng/mL (0.5-2.0) *H Microbiology Date/Time Source Procedure Growth Status 05/04/16 02:00 Nasal Nares MRSA Culture - Final Staphylococcus Aureus - Mrsa Complete 05/04/16 02:00 Rectum VRE Culture - Final NO VANCOMYCIN RESISTANT ENTEROCOCCUS ... Complete 05/04/16 01:00 Arm Left Blood Culture - Preliminary Staphylococcus Sp Coag Neg Resulted 05/04/16 00:45 Arm Left Blood Culture - Preliminary Resulted Intake and Output 05/05/16 05/06/16 19:00 07:00 Output Total 400 ml 801 ml Balance -400 ml -801 ml Output Urine Total 400 ml 800 ml Stool Total 1 ml # Bowel Movements 2 1 Objective General Appearance: WD/WN, no apparent distress EENT: PERRL/EOMI, normal ENT inspection Neck: non-tender, normal alignment, supple Cardiovascular: normal peripheral pulses, no gallop/murmur, no JVD, tachycardia , irregularly irregular Respiratory/Chest: chest wall non-tender, lungs clear, normal breath sounds, no respiratory distress, no accessory muscle use Abdomen: soft, decreased bowel sounds, guarding, tender Extremities: normal range of motion Skin: normal pigmentation, warm/dry Assessment/Plan Problem List: (1) Generalized weakness (2) Vertigo (3) CAD (coronary artery disease) (4) HTN (hypertension) Assessment & Plan: Cont metoprolol (5) CHF (congestive heart failure) (6) Alzheimer's dementia (7) Aortic stenosis (8) Tachycardia Assessment & Plan: Due to Atrial fibrillation-see cardiology note. (9) UGIB (upper gastrointestinal bleed) Assessment & Plan: S/P Endoscopy today 05/06/16; Dx=Gastritis. See GI note. (10) Anemia Assessment & Plan: Due to GI bleed. S/P transfusion 2 units PRBC. (11) Atrial fibrillation Assessment & Plan: Rapid ventricular rate. See cardiology note-Dr Lawrence. (12) Coffee ground emesis Status: not improved JATINDER KNIGHT May 06, 2016 15:29
--- NOTE | 2016-05-06 18:24 | Cardiac Electrophysiology PN ---
Assessment/Plan Assessment/Plan 1. Atrial fibrillation and flutter with rapid ventricular rates. S/P 2 units of PRBC. She does not appear with any evidence for congestive heart failure or acute coronary syndrome based on EKG and troponin levels. On metoprolol 25 bid and Dig.She is not a candidate for cardioversion given the persistent atrial fibrillation and is not a candidate for anticoagulation due to gastrointestinal bleeding. Dig level 3.1 Repeat Dig level in am. 2. GI bleed, s/p PRBC and EGD TAMELA RN Subjective Subjective More alert today. Still tachycardic in atrial fib. Had EGD today that showed Gastritis Objective Last 24 Hour Vital Signs Date Time Temp Pulse Resp B/P Pulse Ox O2 Delivery O2 Flow Rate FiO2 05/06/16 16:00 97.9 84 20 110/52 94 Room Air 05/06/16 13:00 97.6 60 26 106/52 100 Nasal Cannula 3.0 05/06/16 12:50 86 20 97 05/06/16 12:49 87 20 97 05/06/16 12:45 60 17 112/59 100 Nasal Cannula 3.0 05/06/16 12:40 69 18 110/58 100 Nasal Cannula 3.0 05/06/16 12:35 97.2 60 19 106/55 98 Nasal Cannula 3.0 05/06/16 08:57 105 104/60 05/06/16 08:11 111 05/06/16 08:00 97.2 120 17 104/60 98 Room Air 05/06/16 04:06 98.3 120 19 117/65 94 Room Air 05/06/16 04:00 105 05/06/16 03:39 117 05/06/16 00:39 98.2 114 18 112/76 95 Room Air 05/06/16 00:00 118 05/05/16 23:51 120 05/05/16 21:46 122 99/58 05/05/16 20:00 134 05/05/16 20:00 97.9 122 20 99/58 96 Room Air 05/05/16 19:37 163 Intake and Output 05/05/16 05/06/16 19:00 07:00 Output Total 400 ml 801 ml Balance -400 ml -801 ml Output Urine Total 400 ml 800 ml Stool Total 1 ml # Bowel Movements 2 1 Laboratory Tests Test 05/06/16 09:15 White Blood Count 11.8 K/UL (4.8-10.8) H Red Blood Count 2.75 M/UL (4.20-5.40) L Hemoglobin 9.3 G/DL (12.0-16.0) L Hematocrit 28.4 % (37.0-47.0) L Mean Corpuscular Volume 104 FL (80-99) H Mean Corpuscular Hemoglobin 33.7 PG (27.0-31.0) H Mean Corpuscular Hemoglobin Concent 32.5 G/DL (32.0-36.0) Red Cell Distribution Width 17.1 % (11.6-14.8) H Platelet Count 147 K/UL (150-450) L Mean Platelet Volume 6.2 FL (6.5-10.1) L Neutrophils (%) (Auto) 68.9 % (45.0-75.0) Lymphocytes (%) (Auto) 19.8 % (20.0-45.0) L Monocytes (%) (Auto) 9.1 % (1.0-10.0) Eosinophils (%) (Auto) 0.8 % (0.0-3.0) Basophils (%) (Auto) 1.5 % (0.0-2.0) Prothrombin Time 11.6 SEC (9.30-11.50) H Prothromb Time International Ratio 1.1 (0.9-1.1) Activated Partial Thromboplast Time 25 SEC (23-33) Sodium Level 145 mEQ/L (135-145) Potassium Level 4.1 mEQ/L (3.4-4.9) Chloride Level 106 mEQ/L (98-107) Carbon Dioxide Level 20 mEQ/L (20-30) Anion Gap 19 (5-15) H Blood Urea Nitrogen 22 mg/dL (7-23) Creatinine 0.8 mg/dL (0.5-0.9) Estimat Glomerular Filtration Rate mL/min (>60) Glucose Level 68 mg/dL (74-106) L Calcium Level 8.2 mg/dL (8.6-10.2) L Phosphorus Level 3.7 mg/dL (2.5-4.8) Magnesium Level 2.1 mg/dL (1.7-2.5) Total Bilirubin 0.6 mg/dL (0.0-1.2) Aspartate Amino Transf (AST/SGOT) 27 U/L (5-40) Alanine Aminotransferase (ALT/SGPT) 15 U/L (3-33) Alkaline Phosphatase 61 U/L (35-104) Total Protein 5.5 g/dL (6.6-8.7) L Albumin 3.1 g/dL (3.5-5.2) L Globulin 2.4 g/dL Albumin/Globulin Ratio 1.2 (1.0-2.7) Digoxin Level 3.1 ng/mL (0.5-2.0) *H Microbiology Date/Time Source Procedure Growth Status 05/04/16 02:00 Nasal Nares MRSA Culture - Final Staphylococcus Aureus - Mrsa Complete 05/04/16 02:00 Rectum VRE Culture - Final NO VANCOMYCIN RESISTANT ENTEROCOCCUS ... Complete 05/04/16 01:00 Arm Left Blood Culture - Preliminary Staphylococcus Sp Coag Neg Resulted 05/04/16 00:45 Arm Left Blood Culture - Preliminary Resulted Objective HEENT: No JVD LUNGS: Clear to auscultation bilaterally. HEART: Irregularly irregular. Tachycardic. S1 and S2 with a 2/6 systolic ejection murmur ABDOMEN: Soft and nontender. No palpable mass. EXTREMITIES: A 1+ pedal and ankle edema bilaterally. SKIN: No rashes or lesions. CLAIRE KEY May 06, 2016 18:23
--- NOTE | 2016-05-06 19:38 | Procedure Note ---
DATE OF PROCEDURE: 05/06/2016 SURGEON: Abdoul Lorenzana M.D. PROCEDURE: Upper endoscopy with biopsy. ANESTHESIOLOGIST: Everett Saravia M.D. INSTRUMENT: Olympus adult flexible upper endoscope. INDICATION: Upper gastrointestinal bleeding. REASON FOR PROCEDURE: The procedure, risks, benefits, and possible consequences, including hemorrhage, aspiration, perforation and infection, and alternative treatments, were explained to the patient/legal guardian by Dr. Abdoul Lorenzana and the patient/legal guardian understood and accepted these risks. DESCRIPTION OF PROCEDURE: After informed consent was obtained and the patient was adequately sedated, Olympus upper endoscope was advanced from mouth into the second portion of the duodenum and retroflexion was performed of the stomach. The patient has diffuse gastritis. Random biopsy from antrum of the stomach was obtained to rule out H. pylori infection. No evidence for any active upper GI bleeding. The patient apparently had an ulcer in the past because there is a scar tissue in the mid stomach between body and antrum. Again, no active GI bleeding at this time. The patient tolerated the procedure without any complication. SUMMARY OF FINDINGS: Diffuse gastritis status post biopsy. RECOMMENDATIONS: Followup biopsy and treat accordingly. Abdoul Lorenzana M.D. DR: JUAN F JOB#: [id number] CC:
--- NOTE | 2016-05-06 21:25 | General Progress Note ---
Assessment/Plan Assessment/Plan ASSESSMENT: 1. Anemia secondary to coffee-ground emesis and gastrointestinal bleed. Planning for scope per GI 2. Decreased hemoglobin and hematocrit r/o GI bleed 3. Anemia secondary to iron deficiency 4. Leukocytosis due to reactive process. 5. Hypertension secondary to bleed. 6. Atrial fibrillation with rapid ventricular response. 7. Coagulopathy secondary potential malnutrition versus vitamin K deficiency. RECOMMENDATIONS: 1. Back on med [facility] [place] floor 2. Hemoglobin goal>7. 3. Platelets goal less than 20,000. 4. Anemia workup reviewed. potentially to undergo egd 5. Ultrasound of the abdomen pending 6. Occult blood is pending. 7. DVT prophylaxis with SCDs. 8. GI prophylaxis with pantoprazole . 9. Appreciate GI and cards revs 10. staff Thank you, Prince Vanegas MD Subjective Constitutional: Reports: no symptoms HEENT: Reports: no symptoms Cardiovascular: Reports: no symptoms Respiratory: Reports: no symptoms Gastrointestinal/Abdominal: Reports: no symptoms Genitourinary: Reports: no symptoms Neurologic/Psychiatric: Reports: no symptoms Endocrine: Reports: no symptoms Hematologic/Lymphatic: Reports: no symptoms Allergies: Coded Allergies: CLARITHROMYCIN (Verified Allergy, Unknown, 05/04/16) DEXTROMETHORPHAN (Verified Allergy, Unknown, 05/04/16) MACROLIDE ANTIBIOTICS (Verified Allergy, Unknown, 05/04/16) PENICILLINS (Verified Allergy, Unknown, 05/04/16) Uncoded Allergies: KETOLIDES (Allergy, Unknown, 05/04/16) RED DYES (Allergy, Unknown, 05/04/16) TARTRAZINE (Allergy, Unknown, 05/04/16) YELLOW DYE-NON TARTRAZINE (Allergy, Unknown, 05/04/16) Objective Last 24 Hour Vital Signs Date Time Temp Pulse Resp B/P Pulse Ox O2 Delivery O2 Flow Rate FiO2 05/06/16 20:00 97.8 73 20 94/46 98 Room Air 05/06/16 16:00 97.9 84 20 110/52 94 Room Air 05/06/16 13:00 97.6 60 26 106/52 100 Nasal Cannula 3.0 05/06/16 12:50 86 20 97 05/06/16 12:49 87 20 97 05/06/16 12:45 60 17 112/59 100 Nasal Cannula 3.0 05/06/16 12:40 69 18 110/58 100 Nasal Cannula 3.0 05/06/16 12:35 97.2 60 19 106/55 98 Nasal Cannula 3.0 05/06/16 08:57 105 104/60 05/06/16 08:11 111 05/06/16 08:00 97.2 120 17 104/60 98 Room Air 05/06/16 04:06 98.3 120 19 117/65 94 Room Air 05/06/16 04:00 105 05/06/16 03:39 117 05/06/16 00:39 98.2 114 18 112/76 95 Room Air 05/06/16 00:00 118 05/05/16 23:51 120 05/05/16 21:46 122 99/58 Intake and Output 05/05/16 05/06/16 19:00 07:00 Output Total 400 ml 801 ml Balance -400 ml -801 ml Output Urine Total 400 ml 800 ml Stool Total 1 ml # Bowel Movements 2 1 Laboratory Tests 05/06/16 09:15: White Blood Count 11.8H, Red Blood Count 2.75L, Hemoglobin 9.3L, Hematocrit 28.4L, Mean Corpuscular Volume 104H, Mean Corpuscular Hemoglobin 33.7H, Mean Corpuscular Hemoglobin Concent 32.5, Red Cell Distribution Width 17.1H, Platelet Count 147L, Mean Platelet Volume 6.2L, Neutrophils (%) (Auto) 68.9, Lymphocytes (%) (Auto) 19.8L, Monocytes (%) (Auto) 9.1, Eosinophils (%) (Auto) 0.8, Basophils (%) (Auto) 1.5, Prothrombin Time 11.6H, Prothromb Time International Ratio 1.1, Activated Partial Thromboplast Time 25, Sodium Level 145, Potassium Level 4.1, Chloride Level 106, Carbon Dioxide Level 20, Anion Gap 19H, Blood Urea Nitrogen 22, Creatinine 0.8, Estimat Glomerular Filtration Rate , Glucose Level 68L, Calcium Level 8.2L, Phosphorus Level 3.7, Magnesium Level 2.1, Total Bilirubin 0.6, Aspartate Amino Transf (AST/SGOT) 27, Alanine Aminotransferase (ALT/SGPT) 15, Alkaline Phosphatase 61, Total Protein 5.5L, Albumin 3.1L, Globulin 2.4, Albumin/Globulin Ratio 1.2, Digoxin Level 3.1*H Height (Feet): 4 Height (Inches): 10.00 Weight (Pounds): 148 General Appearance: no apparent distress EENT: normal ENT inspection Neck: normal alignment Cardiovascular: normal rate Respiratory/Chest: lungs clear Extremities: non-tender Edema: no edema noted Arm (L), no edema noted Arm (R), no edema noted Leg (L), no edema noted Leg (R), no edema noted Pedal (L), no edema noted Pedal (R), no edema noted Generalized Edema: mild edema Neurologic: alert Lymphatic: normal anterior cervical (L), normal anterior cervical (R), normal axillary (L), normal axillary (R), normal inguinal (L), normal inguinal (R), normal other, normal posterior cervical (L), normal posterior cervical (R), normal submandibular (L), normal submandibular (R), normal supraclavicular (L), normal supraclavicular (R) PRINCE VANEGAS May 06, 2016 21:25
--- NOTE | 2016-05-06 22:45 | Pulmonology Progress Note ---
Assessment/Plan Problems: (1) UGIB (upper gastrointestinal bleed) (2) Atrial fibrillation (3) Anemia Assessment/Plan h/h stable s/p prbc cardiology f/u watch hr endoscopy when hR better controlled Subjective Allergies: Coded Allergies: CLARITHROMYCIN (Verified Allergy, Unknown, 05/04/16) DEXTROMETHORPHAN (Verified Allergy, Unknown, 05/04/16) MACROLIDE ANTIBIOTICS (Verified Allergy, Unknown, 05/04/16) PENICILLINS (Verified Allergy, Unknown, 05/04/16) Uncoded Allergies: KETOLIDES (Allergy, Unknown, 05/04/16) RED DYES (Allergy, Unknown, 05/04/16) TARTRAZINE (Allergy, Unknown, 05/04/16) YELLOW DYE-NON TARTRAZINE (Allergy, Unknown, 05/04/16) Objective Last 24 Hour Vital Signs Date Time Temp Pulse Resp B/P Pulse Ox O2 Delivery O2 Flow Rate FiO2 05/06/16 21:00 73 94/46 05/06/16 20:00 97.8 73 20 94/46 98 Room Air 05/06/16 16:00 97.9 84 20 110/52 94 Room Air 05/06/16 13:00 97.6 60 26 106/52 100 Nasal Cannula 3.0 05/06/16 12:50 86 20 97 05/06/16 12:49 87 20 97 05/06/16 12:45 60 17 112/59 100 Nasal Cannula 3.0 05/06/16 12:40 69 18 110/58 100 Nasal Cannula 3.0 05/06/16 12:35 97.2 60 19 106/55 98 Nasal Cannula 3.0 05/06/16 08:57 105 104/60 05/06/16 08:11 111 05/06/16 08:00 97.2 120 17 104/60 98 Room Air 05/06/16 04:06 98.3 120 19 117/65 94 Room Air 05/06/16 04:00 105 05/06/16 03:39 117 05/06/16 00:39 98.2 114 18 112/76 95 Room Air 05/06/16 00:00 118 05/05/16 23:51 120 Intake and Output 05/05/16 05/06/16 19:00 07:00 Output Total 400 ml 801 ml Balance -400 ml -801 ml Output Urine Total 400 ml 800 ml Stool Total 1 ml # Bowel Movements 2 1 Objective General Appearance: WD/WN HEENT: normocephalic, atraumatic Respiratory/Chest: chest wall non-tender, lungs clear Breasts: no masses Cardiovascular: normal peripheral pulses, normal rate, regular rhythm Abdomen: normal bowel sounds, soft, non tender, no organomegaly, non distended Genitourinary: normal external genitalia Skin: no rash, no lesions 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 Complete 05/04/16 01:00 Arm Left Blood Culture - Preliminary Staphylococcus Sp Coag Neg Resulted 05/04/16 00:45 Arm Left Blood Culture - Preliminary Resulted Laboratory Tests 05/06/16 09:15: White Blood Count 11.8H, Red Blood Count 2.75L, Hemoglobin 9.3L, Hematocrit 28.4L, Mean Corpuscular Volume 104H, Mean Corpuscular Hemoglobin 33.7H, Mean Corpuscular Hemoglobin Concent 32.5, Red Cell Distribution Width 17.1H, Platelet Count 147L, Mean Platelet Volume 6.2L, Neutrophils (%) (Auto) 68.9, Lymphocytes (%) (Auto) 19.8L, Monocytes (%) (Auto) 9.1, Eosinophils (%) (Auto) 0.8, Basophils (%) (Auto) 1.5, Prothrombin Time 11.6H, Prothromb Time International Ratio 1.1, Activated Partial Thromboplast Time 25, Sodium Level 145, Potassium Level 4.1, Chloride Level 106, Carbon Dioxide Level 20, Anion Gap 19H, Blood Urea Nitrogen 22, Creatinine 0.8, Estimat Glomerular Filtration Rate , Glucose Level 68L, Calcium Level 8.2L, Phosphorus Level 3.7, Magnesium Level 2.1, Total Bilirubin 0.6, Aspartate Amino Transf (AST/SGOT) 27, Alanine Aminotransferase (ALT/SGPT) 15, Alkaline Phosphatase 61, Total Protein 5.5L, Albumin 3.1L, Globulin 2.4, Albumin/Globulin Ratio 1.2, Digoxin Level 3.1*H Current Medications Medications (Trade) Dose Ordered Sig/Amy Route PRN Reason Start Time Stop Time Status Last Admin Dose Admin Acetaminophen (Tylenol) 650 mg Q6H PRN ORAL Mild Pain/Temp > 100.5 05/04/16 18:00 06/03/16 17:59 05/06/16 15:06 Lorazepam (Ativan) 0.5 mg BIDPRN PRN ORAL For Anxiety 05/04/16 08:30 05/11/16 08:29 05/06/16 15:05 Memantine (Namenda) 10 mg BID ORAL 05/04/16 09:00 06/03/16 08:59 05/06/16 18:21 Metoprolol Tartrate (Lopressor) 25 mg Q12HR ORAL 05/05/16 09:00 06/04/16 08:59 05/06/16 08:57 Ondansetron HCl (Zofran) 4 mg Q6H PRN IVP Nausea & Vomiting 05/04/16 08:30 06/03/16 08:29 Pantoprazole (Protonix) 40 mg EVERY 12 HOURS IVP 05/04/16 09:00 06/03/16 08:59 05/06/16 21:45 NAPOLEON JI May 06, 2016 22:45
[2016-05-07 00:26] VITALS: BP 122/73
[2016-05-07 04:07] VITALS: BP 119/70
[2016-05-07 07:25] LABS: ANION GAP 14 (5-15); CALCIUM 7.9 mg/dL (8.6-10.2); CARBON DIOXIDE 24 mEQ/L (20-30); CHLORIDE 105 mEQ/L (98-107); CREATININE 0.8 mg/dL (0.5-0.9); HEMOLYSIS 3; POTASSIUM 3.8 mEQ/L (3.4-4.9); SODIUM 143 mEQ/L (135-145)
[2016-05-07 07:36] LABS: BASOPHILS % (AUTO) 1.4 % (0.0-2.0); EOSINOPHILS % (AUTO) 1.5 % (0.0-3.0); LYMPHOCYTES % (AUTO) 19.2 % (20.0-45.0); MEAN CORPUSCULAR HEMOGLOBIN 34.5 PG (27.0-31.0); MEAN CORPUSCULAR HGB CONC 33.9 G/DL (32.0-36.0); MEAN CORPUSCULAR VOLUME 102 FL (80-99); MEAN PLATELET VOLUME 6.3 FL (6.5-10.1); MONOCYTES % (AUTO) 10.4 % (1.0-10.0); NEUTROPHILS % (AUTO) 67.6 % (45.0-75.0); PLATELET COUNT 153 K/UL (150-450); RED BLOOD COUNT 2.93 M/UL (4.20-5.40); WHITE BLOOD COUNT 9.4 K/UL (4.8-10.8)
[2016-05-07 08:00] VITALS: BP 125/62
[2016-05-07] MEDS: Memantine 10mg tab ORAL SCH ×2 (09:40→17:36)
[2016-05-07] MEDS: Pantoprazole Inj IVP SCH ×2 (09:40→21:13)
[2016-05-07] MEDS: Metoprolol 25mg tab ORAL SCH ×2 (09:40→21:00)
--- NOTE | 2016-05-07 09:41 | General Progress Note ---
Assessment/Plan Problem List: (1) Coffee ground emesis ICD Codes: K92.0 - Hematemesis SNOMED: 45135192 (2) Hypoalbuminemia ICD Codes: E88.09 - Other disorders of plasma-protein metabolism, not elsewhere classified SNOMED: 724421359 (3) Leukocytosis ICD Codes: D72.829 - Elevated white blood cell count, unspecified SNOMED: 688524248, 063099812 (4) Atrial fibrillation ICD Codes: I48.91 - Unspecified atrial fibrillation SNOMED: 68267142 (5) UGIB (upper gastrointestinal bleed) ICD Codes: K92.2 - Gastrointestinal hemorrhage, unspecified SNOMED: 48246314 (6) Anemia ICD Codes: D64.9 - Anemia, unspecified SNOMED: 555207757 Qualifiers: Qualified Codes: D64.9 - Anemia, unspecified Assessment/Plan s/p EGD yesterday stable H&H fu labs tolerating diet Subjective ROS Limited/Unobtainable: Yes Allergies: Coded Allergies: CLARITHROMYCIN (Verified Allergy, Unknown, 05/04/16) DEXTROMETHORPHAN (Verified Allergy, Unknown, 05/04/16) MACROLIDE ANTIBIOTICS (Verified Allergy, Unknown, 05/04/16) PENICILLINS (Verified Allergy, Unknown, 05/04/16) Uncoded Allergies: KETOLIDES (Allergy, Unknown, 05/04/16) RED DYES (Allergy, Unknown, 05/04/16) TARTRAZINE (Allergy, Unknown, 05/04/16) YELLOW DYE-NON TARTRAZINE (Allergy, Unknown, 05/04/16) Subjective no event Objective Last 24 Hour Vital Signs Date Time Temp Pulse Resp B/P Pulse Ox O2 Delivery O2 Flow Rate FiO2 05/07/16 08:00 86 05/07/16 04:07 98.3 110 18 119/70 97 Room Air 05/07/16 04:00 88 05/07/16 00:26 98.8 114 19 122/73 98 Room Air 05/07/16 00:00 79 05/06/16 21:00 73 94/46 05/06/16 20:00 97.8 73 20 94/46 98 Room Air 05/06/16 20:00 66 05/06/16 16:00 84 05/06/16 16:00 97.9 84 20 110/52 94 Room Air 05/06/16 13:00 97.6 60 26 106/52 100 Nasal Cannula 3.0 05/06/16 12:50 86 20 97 05/06/16 12:49 87 20 97 05/06/16 12:45 60 17 112/59 100 Nasal Cannula 3.0 05/06/16 12:40 69 18 110/58 100 Nasal Cannula 3.0 05/06/16 12:35 97.2 60 19 106/55 98 Nasal Cannula 3.0 Intake and Output 05/06/16 05/07/16 19:00 07:00 Intake Total 300 ml 480 ml Output Total 45 ml 800 ml Balance 255 ml -320 ml Intake Oral 480 ml IV Total 300 ml Output Urine Total 45 ml 800 ml # Bowel Movements 2 2 Laboratory Tests 05/07/16 05:35: White Blood Count 9.4, Red Blood Count 2.93L, Hemoglobin 10.1L, Hematocrit 29.7L , Mean Corpuscular Volume 102H, Mean Corpuscular Hemoglobin 34.5H, Mean Corpuscular Hemoglobin Concent 33.9, Red Cell Distribution Width 17.0H, Platelet Count 153, Mean Platelet Volume 6.3L, Neutrophils (%) (Auto) 67.6, Lymphocytes (%) (Auto) 19.2L, Monocytes (%) (Auto) 10.4H, Eosinophils (%) (Auto ) 1.5, Basophils (%) (Auto) 1.4, Sodium Level 143, Potassium Level 3.8, Chloride Level 105, Carbon Dioxide Level 24, Anion Gap 14, Blood Urea Nitrogen 15, Creatinine 0.8, Estimat Glomerular Filtration Rate , Glucose Level 89, Calcium Level 7.9L, Digoxin Level 1.7 Height (Feet): 4 Height (Inches): 10.00 Weight (Pounds): 148 General Appearance: alert EENT: normal ENT inspection Neck: supple Cardiovascular: normal rate Respiratory/Chest: decreased breath sounds Abdomen: normal bowel sounds, non tender, soft Extremities: non-tender HERRERA ANTUNEZ May 07, 2016 09:41
--- NOTE | 2016-05-07 10:14 | Consultation ---
Consult Note Consult Note ID CONSULT: Dict# [id number] Assessment/Plan ASSESSMENT: 85 y/o female with: // CONS bacteremia 2/ ?real vs contaminant - TTE(-) SBE // Leukocytosis, mild - resolved, afebrile ( GIB contributing ) // SP UGIB - SP EGD 05/06: diffuse gastritis, path pending // FOBT(+) anemia SP PRBCs // h/o CAD / CHF, EF 55% // Aortic stenosis // Severe pulmonary HTN // Alzheimer's dementia // MRSA colonized // Macrolide, PCN allergies PLAN: - repeat BCx, start IV vancomycin d# 1 pending final cultures - f/u C&S - f/u path - monitor CBC, temperatures - monitor BMP - transfuse prn Thanks! Will follow QUETA ZAMUDIO May 07, 2016 10:14
[2016-05-07 12:00] VITALS: BP 113/61
[2016-05-07] MEDS ORDERED: Vancomycin 1250mg/D5W 275ml IVPB ONE ×2 (12:00)
--- NOTE | 2016-05-07 13:07 | Pulmonology Progress Note ---
Assessment/Plan Assessment/Plan ASSESSMENT anemia s/p blood transfusion GI bleeding s/p EGD diffuse gastritis, s/p biopsy severe pulmonary HTN A fib/flutter with RVR valvular heart disease: moderate to severe MT, moderate TR severe aortic stenosis bacteremia dementia PLAN OF CARE tele in A fib/flutter rate controlled with BB off Digoxin 2 to stephy, level down to 1.7 today cardio follows ECHO with EF 55% and RVSP of 77 c/w severe pulmonary HTN, + moderate to severe MR, moderate TR, severe aortic stenosis Venous Duplex BLE negative DVT prophylaxis with SCD O2 HHN prn CXR with cardiomegaly, minimal atelectasis s/p EGD with findings of diffuse gastritis, s/p biopsy fup with biopsy results monitor HH stable, stool OB+ blood cx 2/4 + SCON, real vs contaminant ECHO negative for vegetation ID consult noted blood cx repeated started empirically on Vanco await blood cx results if negative,dc Vanco abdominal US noted GI prophylaxis Bowel regimen PT eval and Rx case discussed and evaluated by supervising physician Subjective Allergies: Coded Allergies: CLARITHROMYCIN (Verified Allergy, Unknown, 05/04/16) DEXTROMETHORPHAN (Verified Allergy, Unknown, 05/04/16) MACROLIDE ANTIBIOTICS (Verified Allergy, Unknown, 05/04/16) PENICILLINS (Verified Allergy, Unknown, 05/04/16) Uncoded Allergies: KETOLIDES (Allergy, Unknown, 05/04/16) RED DYES (Allergy, Unknown, 05/04/16) TARTRAZINE (Allergy, Unknown, 05/04/16) YELLOW DYE-NON TARTRAZINE (Allergy, Unknown, 05/04/16) Subjective denies chest pain, SOB in A fib/flutter, rate controlled no signs of respiratory distress HH stable Objective Last 24 Hour Vital Signs Date Time Temp Pulse Resp B/P Pulse Ox O2 Delivery O2 Flow Rate FiO2 05/07/16 12:00 67 05/07/16 09:40 86 119/70 05/07/16 08:00 97.5 113 17 125/62 96 Room Air 05/07/16 08:00 86 05/07/16 04:07 98.3 110 18 119/70 97 Room Air 05/07/16 04:00 88 05/07/16 00:26 98.8 114 19 122/73 98 Room Air 05/07/16 00:00 79 05/06/16 21:00 73 94/46 05/06/16 20:00 97.8 73 20 94/46 98 Room Air 05/06/16 20:00 66 05/06/16 16:00 84 05/06/16 16:00 97.9 84 20 110/52 94 Room Air Intake and Output 05/06/16 05/07/16 19:00 07:00 Intake Total 300 ml 480 ml Output Total 45 ml 800 ml Balance 255 ml -320 ml Intake Oral 480 ml IV Total 300 ml Output Urine Total 45 ml 800 ml # Bowel Movements 2 2 General Appearance: no acute distress, other - awake, alert, confused, bedridden HEENT: normocephalic, atraumatic, anicteric Respiratory/Chest: lungs clear - with moderate air exchange, no respiratory distress, no accessory muscle use Cardiovascular: regular rhythm, irregularly irregular - A fib/flutter on tele Abdomen: normal bowel sounds, soft, non tender Genitourinary: normal external genitalia Extremities: no edema Neurologic/Psychiatric: alert, responsive Musculoskeletal: atrophy - BLE Laboratory Tests 05/07/16 05:35: White Blood Count 9.4, Red Blood Count 2.93L, Hemoglobin 10.1L, Hematocrit 29.7L , Mean Corpuscular Volume 102H, Mean Corpuscular Hemoglobin 34.5H, Mean Corpuscular Hemoglobin Concent 33.9, Red Cell Distribution Width 17.0H, Platelet Count 153, Mean Platelet Volume 6.3L, Neutrophils (%) (Auto) 67.6, Lymphocytes (%) (Auto) 19.2L, Monocytes (%) (Auto) 10.4H, Eosinophils (%) (Auto ) 1.5, Basophils (%) (Auto) 1.4, Sodium Level 143, Potassium Level 3.8, Chloride Level 105, Carbon Dioxide Level 24, Anion Gap 14, Blood Urea Nitrogen 15, Creatinine 0.8, Estimat Glomerular Filtration Rate , Glucose Level 89, Calcium Level 7.9L, Digoxin Level 1.7 Current Medications Medications (Trade) Dose Ordered Sig/Amy Route PRN Reason Start Time Stop Time Status Last Admin Dose Admin Acetaminophen (Tylenol) 650 mg Q6H PRN ORAL Mild Pain/Temp > 100.5 05/04/16 18:00 06/03/16 17:59 05/06/16 15:06 Lorazepam (Ativan) 0.5 mg BIDPRN PRN ORAL For Anxiety 05/04/16 08:30 05/11/16 08:29 05/06/16 15:05 Memantine (Namenda) 10 mg BID ORAL 05/04/16 09:00 06/03/16 08:59 05/07/16 09:40 Metoprolol Tartrate (Lopressor) 25 mg Q12HR ORAL 05/05/16 09:00 06/04/16 08:59 05/07/16 09:40 Ondansetron HCl (Zofran) 4 mg Q6H PRN IVP Nausea & Vomiting 05/04/16 08:30 06/03/16 08:29 Pantoprazole (Protonix) 40 mg EVERY 12 HOURS IVP 05/04/16 09:00 06/03/16 08:59 05/07/16 09:40 Vancomycin HCl 1.25 gm/Dextrose 275 ml @ 183.333 mls/hr ONCE ONCE IVPB 05/07/16 12:00 05/07/16 13:29 05/07/16 12:32 Vancomycin HCl 1 ea 1 ea DAILY PRN MISC Per rx protocol 05/07/16 10:00 06/06/16 09:59 Vancomycin HCl/ Dextrose (Vancomycin/D5W) 275 ml @ 183.708 mls/hr Q24H IVPB 05/08/16 12:00 05/13/16 11:59 Bette Ríos NP ([facility]) May 07, 2016 13:07
--- NOTE | 2016-05-07 14:21 | Cardiac Electrophysiology PN ---
Assessment/Plan Status Narrative Technically difficult study due to poor acoustic windows. Study quality precludes accurate assessment of regional wall motion. Normal left ventricular chamber size, systolic function and wall motion. Left ventricular ejection fraction estimated to be 55 %. No evidence of ventricular hypertrophy. No evidence of pericardial fat or effusion. SEVERE left atrial enlargement. Right cardiac chamber sizes are within normal limits. Aortic valve calcification with decreased cusp excursion c/w aortic stenosis. Mildly thickened mitral valve leaflets with normal excursion. Mild mitral annulus and aortic root calcification. Pulmonic valve not well visualized. Normal tricuspid valve structure. A color flow and spectral Doppler study was performed and revealed: No aortic regurgitation. Peak aortic valve gradient of 41 mmHg and a mean of 22 mmHg. Aortic valve area 0.6 cm2 calculated by continuity equation. Moderate to severe mitral regurgitation. Left ventricular diastolic function could not be determined due to A-Fib. Moderate tricuspid regurgitation. Tricuspid systolic velocities suggests peak right ventricular systolic pressure of 77 mmHg, consistent with severe pulmonary hypertension. Trace pulmonic regurgitation present. Assessment/Plan 1. Atrial fibrillation and flutter with rapid ventricular rates. S/P 2 units of PRBC. No congestive heart failure or acute coronary syndrome. On metoprolol 25 bid and Dig.She is not a candidate for cardioversion given the persistent atrial fibrillation and is not a candidate for anticoagulation due to gastrointestinal bleeding. Dig level 3.1 down to 1.7. Off Digoxin in view of stephy episode. 2. Severe Aortic stenosis CALVIN 0.6. 3. Severe pulmonary HTN 2. GI bleed, s/p PRBC and EGD that showed gastritis DW RN Subjective Subjective Got episodes of bradycardia last night down to 35. Comfortable RN at bedside. Objective Last 24 Hour Vital Signs Date Time Temp Pulse Resp B/P Pulse Ox O2 Delivery O2 Flow Rate FiO2 05/07/16 12:00 97.0 70 17 113/61 97 Room Air 05/07/16 12:00 67 05/07/16 09:40 86 119/70 05/07/16 08:00 97.5 113 17 125/62 96 Room Air 05/07/16 08:00 86 05/07/16 04:07 98.3 110 18 119/70 97 Room Air 05/07/16 04:00 88 05/07/16 00:26 98.8 114 19 122/73 98 Room Air 05/07/16 00:00 79 05/06/16 21:00 73 94/46 05/06/16 20:00 97.8 73 20 94/46 98 Room Air 05/06/16 20:00 66 05/06/16 16:00 84 05/06/16 16:00 97.9 84 20 110/52 94 Room Air Intake and Output 05/06/16 05/07/16 19:00 07:00 Intake Total 300 ml 480 ml Output Total 45 ml 800 ml Balance 255 ml -320 ml Intake Oral 480 ml IV Total 300 ml Output Urine Total 45 ml 800 ml # Bowel Movements 2 2 Laboratory Tests Test 05/07/16 05:35 White Blood Count 9.4 K/UL (4.8-10.8) Red Blood Count 2.93 M/UL (4.20-5.40) L Hemoglobin 10.1 G/DL (12.0-16.0) L Hematocrit 29.7 % (37.0-47.0) L Mean Corpuscular Volume 102 FL (80-99) H Mean Corpuscular Hemoglobin 34.5 PG (27.0-31.0) H Mean Corpuscular Hemoglobin Concent 33.9 G/DL (32.0-36.0) Red Cell Distribution Width 17.0 % (11.6-14.8) H Platelet Count 153 K/UL (150-450) Mean Platelet Volume 6.3 FL (6.5-10.1) L Neutrophils (%) (Auto) 67.6 % (45.0-75.0) Lymphocytes (%) (Auto) 19.2 % (20.0-45.0) L Monocytes (%) (Auto) 10.4 % (1.0-10.0) H Eosinophils (%) (Auto) 1.5 % (0.0-3.0) Basophils (%) (Auto) 1.4 % (0.0-2.0) Sodium Level 143 mEQ/L (135-145) Potassium Level 3.8 mEQ/L (3.4-4.9) Chloride Level 105 mEQ/L (98-107) Carbon Dioxide Level 24 mEQ/L (20-30) Anion Gap 14 (5-15) Blood Urea Nitrogen 15 mg/dL (7-23) Creatinine 0.8 mg/dL (0.5-0.9) Estimat Glomerular Filtration Rate mL/min (>60) Glucose Level 89 mg/dL (74-106) Calcium Level 7.9 mg/dL (8.6-10.2) L Digoxin Level 1.7 ng/mL (0.5-2.0) Objective HEENT: No JVD LUNGS: Clear to auscultation bilaterally. HEART: Irregularly irregular S1 and S2 with a 2/6 systolic ejection murmur aortic area ABDOMEN: Soft and nontender. No palpable mass. EXTREMITIES: A 1+ pedal and ankle edema bilaterally. CLAIRE KEY May 07, 2016 14:21
[2016-05-07 16:00] VITALS: BP 101/57
--- NOTE | 2016-05-07 16:09 | Internal Med Progress Note ---
Subjective Date of Service: May 07, 2016 Physician Name Jatinder Knight Attending Physician Galileo Quezada MD Current Medications Medications (Trade) Dose Ordered Sig/Amy Route PRN Reason Start Time Stop Time Status Last Admin Dose Admin Acetaminophen (Tylenol) 650 mg Q6H PRN ORAL Mild Pain/Temp > 100.5 05/04/16 18:00 06/03/16 17:59 05/06/16 15:06 Lorazepam (Ativan) 0.5 mg BIDPRN PRN ORAL For Anxiety 05/04/16 08:30 05/11/16 08:29 05/06/16 15:05 Memantine (Namenda) 10 mg BID ORAL 05/04/16 09:00 06/03/16 08:59 05/07/16 09:40 Metoprolol Tartrate (Lopressor) 25 mg Q12HR ORAL 05/05/16 09:00 06/04/16 08:59 05/07/16 09:40 Ondansetron HCl (Zofran) 4 mg Q6H PRN IVP Nausea & Vomiting 05/04/16 08:30 06/03/16 08:29 Pantoprazole (Protonix) 40 mg EVERY 12 HOURS IVP 05/04/16 09:00 06/03/16 08:59 05/07/16 09:40 Vancomycin HCl 1 ea 1 ea DAILY PRN MISC Per rx protocol 05/07/16 10:00 06/06/16 09:59 Vancomycin HCl/ Dextrose (Vancomycin/D5W) 275 ml @ 183.708 mls/hr Q24H IVPB 05/08/16 12:00 05/13/16 11:59 Allergies: Coded Allergies: CLARITHROMYCIN (Verified Allergy, Unknown, 05/04/16) DEXTROMETHORPHAN (Verified Allergy, Unknown, 05/04/16) MACROLIDE ANTIBIOTICS (Verified Allergy, Unknown, 05/04/16) PENICILLINS (Verified Allergy, Unknown, 05/04/16) Uncoded Allergies: KETOLIDES (Allergy, Unknown, 05/04/16) RED DYES (Allergy, Unknown, 05/04/16) TARTRAZINE (Allergy, Unknown, 05/04/16) YELLOW DYE-NON TARTRAZINE (Allergy, Unknown, 05/04/16) ROS Limited/Unobtainable: Yes Subjective 85 YO F admitted with GI hemorrhage. S/P transfusion 2 units Packed RBC. S/P Endoscopy on 05/06/16. Cover for Int Med-Dr Quezada. Objective Last Vital Signs Date Time Temp Pulse Resp B/P Pulse Ox O2 Delivery O2 Flow Rate FiO2 05/07/16 12:00 97.0 70 17 113/61 97 Room Air 05/06/16 13:00 3.0 Laboratory Tests Test 05/07/16 05:35 White Blood Count 9.4 K/UL (4.8-10.8) Red Blood Count 2.93 M/UL (4.20-5.40) L Hemoglobin 10.1 G/DL (12.0-16.0) L Hematocrit 29.7 % (37.0-47.0) L Mean Corpuscular Volume 102 FL (80-99) H Mean Corpuscular Hemoglobin 34.5 PG (27.0-31.0) H Mean Corpuscular Hemoglobin Concent 33.9 G/DL (32.0-36.0) Red Cell Distribution Width 17.0 % (11.6-14.8) H Platelet Count 153 K/UL (150-450) Mean Platelet Volume 6.3 FL (6.5-10.1) L Neutrophils (%) (Auto) 67.6 % (45.0-75.0) Lymphocytes (%) (Auto) 19.2 % (20.0-45.0) L Monocytes (%) (Auto) 10.4 % (1.0-10.0) H Eosinophils (%) (Auto) 1.5 % (0.0-3.0) Basophils (%) (Auto) 1.4 % (0.0-2.0) Sodium Level 143 mEQ/L (135-145) Potassium Level 3.8 mEQ/L (3.4-4.9) Chloride Level 105 mEQ/L (98-107) Carbon Dioxide Level 24 mEQ/L (20-30) Anion Gap 14 (5-15) Blood Urea Nitrogen 15 mg/dL (7-23) Creatinine 0.8 mg/dL (0.5-0.9) Estimat Glomerular Filtration Rate mL/min (>60) Glucose Level 89 mg/dL (74-106) Calcium Level 7.9 mg/dL (8.6-10.2) L Digoxin Level 1.7 ng/mL (0.5-2.0) Intake and Output 05/06/16 05/07/16 19:00 07:00 Intake Total 300 ml 480 ml Output Total 45 ml 800 ml Balance 255 ml -320 ml Intake Oral 480 ml IV Total 300 ml Output Urine Total 45 ml 800 ml # Bowel Movements 2 2 Objective General Appearance: WD/WN, no apparent distress EENT: PERRL/EOMI, normal ENT inspection Neck: non-tender, normal alignment, supple Cardiovascular: normal peripheral pulses, no gallop/murmur, no JVD, tachycardia , irregularly irregular Respiratory/Chest: chest wall non-tender, lungs clear, normal breath sounds, no respiratory distress, no accessory muscle use Abdomen: soft, decreased bowel sounds, guarding, tender Extremities: normal range of motion Skin: normal pigmentation, warm/dry Assessment/Plan Problem List: (1) Generalized weakness (2) Vertigo (3) CAD (coronary artery disease) (4) HTN (hypertension) Assessment & Plan: Cont metoprolol (5) CHF (congestive heart failure) (6) Alzheimer's dementia (7) Aortic stenosis (8) Tachycardia Assessment & Plan: Due to Atrial fibrillation-see cardiology note. (9) UGIB (upper gastrointestinal bleed) Assessment & Plan: S/P Endoscopy on 05/06/16; Dx=Gastritis. See GI note. (10) Anemia Assessment & Plan: Due to GI bleed. S/P transfusion 2 units PRBC. (11) Atrial fibrillation Assessment & Plan: Rapid ventricular rate. See cardiology note-Dr Lawrence. (12) Coffee ground emesis (13) Bacteremia Assessment & Plan: See ID note. Continue vancomycin per ID. Await repeat culture results. Status: progressing JATINDER KNIGHT May 07, 2016 16:09
[2016-05-07] MEDS: LORazepam 0.5mg tab ORAL PRN (18:08)
--- NOTE | 2016-05-07 19:58 | Consultation ---
DATE OF CONSULTATION: 05/07/2016 INFECTIOUS DISEASE CONSULTATION REQUESTING PHYSICIAN: Galileo Quezada M.D. REASON FOR CONSULTATION: Bacteremia. HISTORY OF PRESENT ILLNESS: This 85-year-old female, readmitted on 05/04/2016 with upper gastrointestinal bleeding and coffee-grounds emesis. She was transfused two units of packed red blood cells and underwent upper endoscopy showing diffuse gastritis. A biopsy was taken and the pathology report is pending. Her hemoglobin has been stable. Hospital course was complicated by coagulase-negative staph bacteremia, cultures from 2/4 bottles. An echocardiogram was negative for endocarditis. Also mild leukocytosis that is now resolved and afebrile. She is currently not receiving any antibiotics and ID now consulted to assist in management. PAST MEDICAL HISTORY: 1. Alzheimer's dementia. 2. Coronary artery disease and congestive heart failure. 3. Atrial fibrillation. PAST SURGICAL HISTORY: Upper endoscopy on 05/06/2014 showing gastritis. MEDICATIONS: 1. Protonix. 2. Namenda. 3. Metoprolol. ALLERGIES: 1. Clarithromycin. 2. Dextromethorphan. 3. . 4. Macrolide antibiotics. 5. Penicillin allergy. 6. Red dyes. 7. Non-tartrazine. SOCIAL HISTORY: Unknown. FAMILY HISTORY: Unknown. REVIEW OF SYSTEMS: Unable to obtain. PHYSICAL EXAMINATION: GENERAL: No apparent distress. Nontoxic appearing and pleasantly confused. VITAL SIGNS: Maximum temperature 98.8 degrees, blood pressure 119/70, heart rate in the 80s, respiratory rate 18, and saturating 97% on room air. CARDIOVASCULAR: Regular rate and rhythm. No murmurs. PULMONARY: Clear to auscultation bilaterally. ABDOMEN: Bowel sounds present. Soft, nondistended, and nontender. EXTREMITIES: No edema. SKIN: No rash. LABORATORY AND DIAGNOSTIC DATA: White blood cell count 9.4 decreased from 11.8, hemoglobin 10.1, and platelets 153,000. Sodium 143, potassium 3.8, chloride 105, bicarbonate 24, BUN 15, and creatinine 0.8. ESR 72. CRP within normal limits. INR 1.1. Liver function tests within normal limits. Microbiology, on 05/04/2016, blood culture is coagulase-negative Staph in 2/4 bottles. Imaging, 1. On 05/06/2016, bilateral lower extremity Doppler ultrasound negative for DVT. 2. On 05/05/2016, chest x-ray shows degenerative changes of both shoulders. Bilateral perihilar atelectasis. There may be some infrahilar infiltrate on the left lung. 3. On 05/04/2016, echocardiogram showed ejection fraction of 55% with aortic stenosis and aortic valve area of 0.6 centimeter squared, moderate to severe mitral regurgitation, moderate tricuspid regurgitation, and severe pulmonary hypertension. ASSESSMENT: 1. Coagulase-negative Staphylococcus bacteremia in 2/4 bottles, question real versus contaminant. An echocardiogram is negative for endocarditis. 2. Leukocytosis, mild, now resolved and afebrile. Gastrointestinal bleed is contributing. 3. Status post upper gastrointestinal bleeding. Upper endoscopy yesterday showed diffuse gastritis and pathology is pending. 4. Faecal Occult Blood Test positive. 5. Anemia status post transfusion. 6. History of coronary artery disease and congestive heart failure with an ejection fraction of 55%. 7. Aortic stenosis. 8. Severe pulmonary hypertension. 9. Alzheimer's dementia. 10. Methicillin-resistant Staphylococcus aureus colonized. 11. Macrolide and penicillin allergies. PLAN: 1. Repeat blood cultures and start intravenous vancomycin day #1 pending final cultures. 2. Follow up cultures and sensitivity. 3. Follow up pathology. 4. Monitor CBC and temperatures. 5. Monitor BMP. 6. Transfuse as needed. Thank you. We will follow. Gautam Shetty M.D. DR: KISHOR JOB#: [id number] CC: Jose Durán M.D. Arash Alborzi, M.D
[2016-05-07 20:00] VITALS: BP 108/69
[2016-05-07] MEDS ORDERED: NS 275ml ONE (20:58)
[2016-05-07] MEDS ORDERED: Tubing Ominiflow Primary IV ONE (20:58)
--- NOTE | 2016-05-07 22:25 | General Progress Note ---
Assessment/Plan Assessment/Plan ASSESSMENT: 1. Anemia secondary to coffee-ground emesis and gastrointestinal bleed. Planning for scope per GI 2. Decreased hemoglobin and hematocrit r/o GI bleed 3. Anemia secondary to iron deficiency 4. Leukocytosis due to reactive process. 5. Hypertension secondary to bleed. 6. Atrial fibrillation with rapid ventricular response. 7. Coagulopathy secondary potential malnutrition versus vitamin K deficiency. RECOMMENDATIONS: 1. [place] [facility] [place] 2. Hemoglobin goal>7. 3. Platelets goal less than 20,000. 4. Anemia workup reviewed. potentially to undergo egd 5. Ultrasound of the abdomen pending 6. Occult blood is pending. 7. DVT prophylaxis with SCDs. 8. GI prophylaxis with pantoprazole . 9. Appreciate GI and cards revs 10. staff Thank you, Prince Vanegas MD Subjective Constitutional: Reports: no symptoms HEENT: Reports: no symptoms Cardiovascular: Reports: no symptoms Respiratory: Reports: no symptoms Gastrointestinal/Abdominal: Reports: no symptoms Genitourinary: Reports: no symptoms Neurologic/Psychiatric: Reports: no symptoms Endocrine: Reports: no symptoms Hematologic/Lymphatic: Reports: no symptoms Allergies: Coded Allergies: CLARITHROMYCIN (Verified Allergy, Unknown, 05/04/16) DEXTROMETHORPHAN (Verified Allergy, Unknown, 05/04/16) MACROLIDE ANTIBIOTICS (Verified Allergy, Unknown, 05/04/16) PENICILLINS (Verified Allergy, Unknown, 05/04/16) Uncoded Allergies: KETOLIDES (Allergy, Unknown, 05/04/16) RED DYES (Allergy, Unknown, 05/04/16) TARTRAZINE (Allergy, Unknown, 05/04/16) YELLOW DYE-NON TARTRAZINE (Allergy, Unknown, 05/04/16) Objective Last 24 Hour Vital Signs Date Time Temp Pulse Resp B/P Pulse Ox O2 Delivery O2 Flow Rate FiO2 05/07/16 21:00 125 108/69 05/07/16 20:00 97.5 125 20 108/69 98 Room Air 05/07/16 16:00 96.8 70 18 101/57 97 Room Air 05/07/16 16:00 71 05/07/16 12:00 97.0 70 17 113/61 97 Room Air 05/07/16 12:00 67 05/07/16 09:40 86 119/70 05/07/16 08:00 97.5 113 17 125/62 96 Room Air 05/07/16 08:00 86 05/07/16 04:07 98.3 110 18 119/70 97 Room Air 05/07/16 04:00 88 05/07/16 00:26 98.8 114 19 122/73 98 Room Air 05/07/16 00:00 79 Intake and Output 05/06/16 05/07/16 19:00 07:00 Intake Total 300 ml 480 ml Output Total 45 ml 800 ml Balance 255 ml -320 ml Intake Oral 480 ml IV Total 300 ml Output Urine Total 45 ml 800 ml # Bowel Movements 2 2 Laboratory Tests 05/07/16 05:35: White Blood Count 9.4, Red Blood Count 2.93L, Hemoglobin 10.1L, Hematocrit 29.7L , Mean Corpuscular Volume 102H, Mean Corpuscular Hemoglobin 34.5H, Mean Corpuscular Hemoglobin Concent 33.9, Red Cell Distribution Width 17.0H, Platelet Count 153, Mean Platelet Volume 6.3L, Neutrophils (%) (Auto) 67.6, Lymphocytes (%) (Auto) 19.2L, Monocytes (%) (Auto) 10.4H, Eosinophils (%) (Auto ) 1.5, Basophils (%) (Auto) 1.4, Sodium Level 143, Potassium Level 3.8, Chloride Level 105, Carbon Dioxide Level 24, Anion Gap 14, Blood Urea Nitrogen 15, Creatinine 0.8, Estimat Glomerular Filtration Rate , Glucose Level 89, Calcium Level 7.9L, Digoxin Level 1.7 Height (Feet): 4 Height (Inches): 10.00 Weight (Pounds): 148 General Appearance: no apparent distress EENT: TMs normal Neck: supple Cardiovascular: regular rhythm Respiratory/Chest: lungs clear Abdomen: soft Extremities: non-tender Edema: no edema noted Arm (L), no edema noted Arm (R), no edema noted Leg (L), no edema noted Leg (R), no edema noted Pedal (L), no edema noted Pedal (R), no edema noted Generalized Neurologic: abnormal gait Skin: warm/dry Lymphatic: normal anterior cervical (L), normal anterior cervical (R), normal axillary (L), normal axillary (R), normal inguinal (L), normal inguinal (R), normal other, normal posterior cervical (L), normal posterior cervical (R), normal submandibular (L), normal submandibular (R), normal supraclavicular (L), normal supraclavicular (R) PRINCE VANEGAS May 07, 2016 22:25
[2016-05-08] VITALS (7 sets, daily range): BP systolic 99–118; BP diastolic 56–67
[2016-05-08 07:58] LABS: EOSINOPHILS % (AUTO) 3.3 % (0.0-3.0); LYMPHOCYTES % (AUTO) 27.9 % (20.0-45.0); MEAN CORPUSCULAR HEMOGLOBIN 33.1 PG (27.0-31.0); MEAN CORPUSCULAR HGB CONC 32.5 G/DL (32.0-36.0); MEAN CORPUSCULAR VOLUME 102 FL (80-99); MEAN PLATELET VOLUME 6.7 FL (6.5-10.1); MONOCYTES % (AUTO) 8.3 % (1.0-10.0); NEUTROPHILS % (AUTO) 58.5 % (45.0-75.0); PLATELET COUNT 141 K/UL (150-450); RED BLOOD COUNT 2.91 M/UL (4.20-5.40); RED CELL DISTRIBUTION WIDTH 17.3 % (11.6-14.8); WHITE BLOOD COUNT 6.8 K/UL (4.8-10.8)
[2016-05-08 08:20] LABS: ANION GAP 13 (5-15); CALCIUM 7.7 mg/dL (8.6-10.2); CARBON DIOXIDE 23 mEQ/L (20-30); CHLORIDE 107 mEQ/L (98-107); CREATININE 0.6 mg/dL (0.5-0.9); HEMOLYSIS 3; POTASSIUM 3.5 mEQ/L (3.4-4.9); SODIUM 143 mEQ/L (135-145)
--- NOTE | 2016-05-08 09:24 | General Progress Note ---
Assessment/Plan Problem List: (1) Coffee ground emesis ICD Codes: K92.0 - Hematemesis SNOMED: 66474939 (2) Hypoalbuminemia ICD Codes: E88.09 - Other disorders of plasma-protein metabolism, not elsewhere classified SNOMED: 273222315 (3) Leukocytosis ICD Codes: D72.829 - Elevated white blood cell count, unspecified SNOMED: 959607608, 304310077 (4) Atrial fibrillation ICD Codes: I48.91 - Unspecified atrial fibrillation SNOMED: 16996825 (5) UGIB (upper gastrointestinal bleed) ICD Codes: K92.2 - Gastrointestinal hemorrhage, unspecified SNOMED: 40719535 (6) Anemia ICD Codes: D64.9 - Anemia, unspecified SNOMED: 340921546 Qualifiers: Qualified Codes: D64.9 - Anemia, unspecified Assessment/Plan s/p EGD stable H&H fu labs tolerating diet repeat stool ob and plan colonoscopy if positive o/w as out patient Subjective ROS Limited/Unobtainable: Yes Allergies: Coded Allergies: CLARITHROMYCIN (Verified Allergy, Unknown, 05/04/16) DEXTROMETHORPHAN (Verified Allergy, Unknown, 05/04/16) MACROLIDE ANTIBIOTICS (Verified Allergy, Unknown, 05/04/16) PENICILLINS (Verified Allergy, Unknown, 05/04/16) Uncoded Allergies: KETOLIDES (Allergy, Unknown, 05/04/16) RED DYES (Allergy, Unknown, 05/04/16) TARTRAZINE (Allergy, Unknown, 05/04/16) YELLOW DYE-NON TARTRAZINE (Allergy, Unknown, 05/04/16) Subjective no event Objective Last 24 Hour Vital Signs Date Time Temp Pulse Resp B/P Pulse Ox O2 Delivery O2 Flow Rate FiO2 05/08/16 08:23 97.5 69 18 114/67 95 Room Air 05/08/16 08:22 97.5 69 18 114/67 95 Room Air 95.0 05/08/16 04:00 97.3 74 16 99/56 98 Nasal Cannula 2.0 05/08/16 04:00 94 05/08/16 00:00 94 05/08/16 00:00 97.7 84 18 118/63 98 Nasal Cannula 2.0 05/07/16 21:00 125 108/69 05/07/16 20:00 97.5 125 20 108/69 98 Room Air 05/07/16 20:00 72 05/07/16 16:00 96.8 70 18 101/57 97 Room Air 05/07/16 16:00 71 05/07/16 12:00 97.0 70 17 113/61 97 Room Air 05/07/16 12:00 67 05/07/16 09:40 86 119/70 Intake and Output 05/07/16 05/08/16 19:00 07:00 Intake Total 835.000 ml 210 ml Output Total 400 ml 600 ml Balance 435.000 ml -390 ml Intake Oral 560 ml 210 ml IV Total 275.000 ml Output Urine Total 400 ml 600 ml # Bowel Movements 1 1 Laboratory Tests 05/08/16 05:30: White Blood Count 6.8, Red Blood Count 2.91L, Hemoglobin 9.6L, Hematocrit 29.6L , Mean Corpuscular Volume 102H, Mean Corpuscular Hemoglobin 33.1H, Mean Corpuscular Hemoglobin Concent 32.5, Red Cell Distribution Width 17.3H, Platelet Count 141L, Mean Platelet Volume 6.7, Neutrophils (%) (Auto) 58.5, Lymphocytes (%) (Auto) 27.9, Monocytes (%) (Auto) 8.3, Eosinophils (%) (Auto) 3.3H, Basophils (%) (Auto) 2.0, Sodium Level 143, Potassium Level 3.5, Chloride Level 107, Carbon Dioxide Level 23, Anion Gap 13, Blood Urea Nitrogen 8, Creatinine 0.6, Estimat Glomerular Filtration Rate , Glucose Level 75, Calcium Level 7.7L Height (Feet): 4 Height (Inches): 10.00 Weight (Pounds): 148 General Appearance: alert EENT: normal ENT inspection Neck: supple Cardiovascular: normal rate Respiratory/Chest: lungs clear Abdomen: normal bowel sounds, non tender, soft Extremities: non-tender HERRERA ANTUNEZ May 08, 2016 09:24
--- NOTE | 2016-05-08 09:38 | Pulmonology Progress Note ---
Assessment/Plan Assessment/Plan ASSESSMENT anemia s/p blood transfusion GI bleeding s/p EGD diffuse gastritis, s/p biopsy severe pulmonary HTN A fib/flutter with RVR valvular heart disease: moderate to severe MT, moderate TR severe aortic stenosis bacteremia dementia PLAN OF CARE tele in A fib/flutter rate controlled with BB off Digoxin 2 to stephy, level down to 1.7 today cardio follows ECHO with EF 55% and RVSP of 77 c/w severe pulmonary HTN, + moderate to severe MR, moderate TR, severe aortic stenosis Venous Duplex BLE negative DVT prophylaxis with SCD O2 HHN prn CXR with cardiomegaly, minimal atelectasis s/p EGD with findings of diffuse gastritis, s/p biopsy fup with biopsy results monitor HH stable, stool OB+ blood cx 2/4 + SCON, real vs contaminant ECHO negative for vegetation ID consult noted blood cx repeated started empirically on Vanco await blood cx results if negative,dc Vanco abdominal US noted GI prophylaxis Bowel regimen PT eval and Rx transfer to [place] if ol with cardio case discussed and evaluated by supervising physician Subjective Allergies: Coded Allergies: CLARITHROMYCIN (Verified Allergy, Unknown, 05/04/16) DEXTROMETHORPHAN (Verified Allergy, Unknown, 05/04/16) MACROLIDE ANTIBIOTICS (Verified Allergy, Unknown, 05/04/16) PENICILLINS (Verified Allergy, Unknown, 05/04/16) Uncoded Allergies: KETOLIDES (Allergy, Unknown, 05/04/16) RED DYES (Allergy, Unknown, 05/04/16) TARTRAZINE (Allergy, Unknown, 05/04/16) YELLOW DYE-NON TARTRAZINE (Allergy, Unknown, 05/04/16) Subjective denies chest pain, SOB in A fib/flutter, rate controlled no signs of respiratory distress HH stable Objective Last 24 Hour Vital Signs Date Time Temp Pulse Resp B/P Pulse Ox O2 Delivery O2 Flow Rate FiO2 05/08/16 08:23 97.5 69 18 114/67 95 Room Air 05/08/16 08:22 97.5 69 18 114/67 95 Room Air 95.0 05/08/16 04:00 97.3 74 16 99/56 98 Nasal Cannula 2.0 05/08/16 04:00 94 05/08/16 00:00 94 05/08/16 00:00 97.7 84 18 118/63 98 Nasal Cannula 2.0 05/07/16 21:00 125 108/69 05/07/16 20:00 97.5 125 20 108/69 98 Room Air 05/07/16 20:00 72 05/07/16 16:00 96.8 70 18 101/57 97 Room Air 05/07/16 16:00 71 05/07/16 12:00 97.0 70 17 113/61 97 Room Air 05/07/16 12:00 67 05/07/16 09:40 86 119/70 Intake and Output 05/07/16 05/08/16 19:00 07:00 Intake Total 835.000 ml 210 ml Output Total 400 ml 600 ml Balance 435.000 ml -390 ml Intake Oral 560 ml 210 ml IV Total 275.000 ml Output Urine Total 400 ml 600 ml # Bowel Movements 1 1 Objective General Appearance: no acute distress, other - awake, alert, confused, bedridden HEENT: normocephalic, atraumatic, anicteric Respiratory/Chest: lungs clear - with moderate air exchange, no respiratory distress, no accessory muscle use Cardiovascular: regular rhythm, irregularly irregular - A fib/flutter on tele Abdomen: normal bowel sounds, soft, non tender Genitourinary: normal external genitalia Extremities: no edema Neurologic/Psychiatric: alert, responsive Musculoskeletal: atrophy - BLE Laboratory Tests 05/08/16 05:30: White Blood Count 6.8, Red Blood Count 2.91L, Hemoglobin 9.6L, Hematocrit 29.6L , Mean Corpuscular Volume 102H, Mean Corpuscular Hemoglobin 33.1H, Mean Corpuscular Hemoglobin Concent 32.5, Red Cell Distribution Width 17.3H, Platelet Count 141L, Mean Platelet Volume 6.7, Neutrophils (%) (Auto) 58.5, Lymphocytes (%) (Auto) 27.9, Monocytes (%) (Auto) 8.3, Eosinophils (%) (Auto) 3.3H, Basophils (%) (Auto) 2.0, Sodium Level 143, Potassium Level 3.5, Chloride Level 107, Carbon Dioxide Level 23, Anion Gap 13, Blood Urea Nitrogen 8, Creatinine 0.6, Estimat Glomerular Filtration Rate , Glucose Level 75, Calcium Level 7.7L Current Medications Medications (Trade) Dose Ordered Sig/Amy Route PRN Reason Start Time Stop Time Status Last Admin Dose Admin Acetaminophen (Tylenol) 650 mg Q6H PRN ORAL Mild Pain/Temp > 100.5 05/04/16 18:00 06/03/16 17:59 05/07/16 18:09 Lorazepam (Ativan) 0.5 mg BIDPRN PRN ORAL For Anxiety 05/04/16 08:30 05/11/16 08:29 05/07/16 18:08 Memantine (Namenda) 10 mg BID ORAL 05/04/16 09:00 06/03/16 08:59 05/07/16 17:36 Metoprolol Tartrate (Lopressor) 25 mg Q12HR ORAL 05/05/16 09:00 06/04/16 08:59 05/07/16 09:40 Ondansetron HCl (Zofran) 4 mg Q6H PRN IVP Nausea & Vomiting 05/04/16 08:30 06/03/16 08:29 Pantoprazole (Protonix) 40 mg EVERY 12 HOURS IVP 05/04/16 09:00 06/03/16 08:59 05/07/16 21:13 Vancomycin HCl 1 ea 1 ea DAILY PRN MISC Per rx protocol 05/07/16 10:00 06/06/16 09:59 Vancomycin HCl/ Dextrose (Vancomycin/D5W) 275 ml @ 183.708 mls/hr Q24H IVPB 05/08/16 12:00 05/13/16 11:59 Bette Ríos NP ([facility]anchte[facility]) May 08, 2016 09:38
--- NOTE | 2016-05-08 09:38 | Infectious Diseases Prog Note ---
Assessment/Plan Assessment/Plan ASSESSMENT: 85 y/o female with: // Polymicrobial ( CONS 1/4, diptheroids 1/4 ) bacteremia, m/l contaminants - repeat BCx pending - TTE(-) SBE // Leukocytosis, mild - resolved, afebrile ( GIB contributing ) // SP UGIB - dec Hgb - SP EGD 05/06: diffuse gastritis, path pending // FOBT(+) anemia SP PRBCs // h/o CAD / CHF, EF 55% // Aortic stenosis // Severe pulmonary HTN // Alzheimer's dementia // MRSA colonized // Macrolide, PCN allergies PLAN: - continue IV vancomycin d# 2 pending final cultures - f/u path - monitor CBC, temperatures - monitor BMP - transfuse prn Subjective Allergies: Coded Allergies: CLARITHROMYCIN (Verified Allergy, Unknown, 05/04/16) DEXTROMETHORPHAN (Verified Allergy, Unknown, 05/04/16) MACROLIDE ANTIBIOTICS (Verified Allergy, Unknown, 05/04/16) PENICILLINS (Verified Allergy, Unknown, 05/04/16) Uncoded Allergies: KETOLIDES (Allergy, Unknown, 05/04/16) RED DYES (Allergy, Unknown, 05/04/16) TARTRAZINE (Allergy, Unknown, 05/04/16) YELLOW DYE-NON TARTRAZINE (Allergy, Unknown, 05/04/16) Subjective remains afebrile cultures noted Objective Vital Signs Last 24 Hour Vital Signs Date Time Temp Pulse Resp B/P Pulse Ox O2 Delivery O2 Flow Rate FiO2 05/08/16 08:23 97.5 69 18 114/67 95 Room Air 05/08/16 08:22 97.5 69 18 114/67 95 Room Air 95.0 05/08/16 04:00 97.3 74 16 99/56 98 Nasal Cannula 2.0 05/08/16 04:00 94 05/08/16 00:00 94 05/08/16 00:00 97.7 84 18 118/63 98 Nasal Cannula 2.0 05/07/16 21:00 125 108/69 05/07/16 20:00 97.5 125 20 108/69 98 Room Air 05/07/16 20:00 72 05/07/16 16:00 96.8 70 18 101/57 97 Room Air 05/07/16 16:00 71 3/18/17 12:00 97.0 70 17 113/61 97 Room Air 05/07/16 12:00 67 05/07/16 09:40 86 119/70 Height (Feet): 4 Height (Inches): 10.00 Weight (Pounds): 148 General Appearance: no acute distress Respiratory/Chest: no respiratory distress Cardiovascular: normal rate, regular rhythm Abdomen: normal bowel sounds, soft, non tender, non distended Laboratory Tests Test 05/08/16 05:30 White Blood Count 6.8 K/UL (4.8-10.8) Red Blood Count 2.91 M/UL (4.20-5.40) L Hemoglobin 9.6 G/DL (12.0-16.0) L Hematocrit 29.6 % (37.0-47.0) L Mean Corpuscular Volume 102 FL (80-99) H Mean Corpuscular Hemoglobin 33.1 PG (27.0-31.0) H Mean Corpuscular Hemoglobin Concent 32.5 G/DL (32.0-36.0) Red Cell Distribution Width 17.3 % (11.6-14.8) H Platelet Count 141 K/UL (150-450) L Mean Platelet Volume 6.7 FL (6.5-10.1) Neutrophils (%) (Auto) 58.5 % (45.0-75.0) Lymphocytes (%) (Auto) 27.9 % (20.0-45.0) Monocytes (%) (Auto) 8.3 % (1.0-10.0) Eosinophils (%) (Auto) 3.3 % (0.0-3.0) H Basophils (%) (Auto) 2.0 % (0.0-2.0) Sodium Level 143 mEQ/L (135-145) Potassium Level 3.5 mEQ/L (3.4-4.9) Chloride Level 107 mEQ/L (98-107) Carbon Dioxide Level 23 mEQ/L (20-30) Anion Gap 13 (5-15) Blood Urea Nitrogen 8 mg/dL (7-23) Creatinine 0.6 mg/dL (0.5-0.9) Estimat Glomerular Filtration Rate mL/min (>60) Glucose Level 75 mg/dL (74-106) Calcium Level 7.7 mg/dL (8.6-10.2) L Current Medications Medications (Trade) Dose Ordered Sig/Amy Route PRN Reason Start Time Stop Time Status Last Admin Dose Admin Acetaminophen (Tylenol) 650 mg Q6H PRN ORAL Mild Pain/Temp > 100.5 05/04/16 18:00 06/03/16 17:59 05/07/16 18:09 Lorazepam (Ativan) 0.5 mg BIDPRN PRN ORAL For Anxiety 05/04/16 08:30 05/11/16 08:29 05/07/16 18:08 Memantine (Namenda) 10 mg BID ORAL 05/04/16 09:00 06/03/16 08:59 05/07/16 17:36 Metoprolol Tartrate (Lopressor) 25 mg Q12HR ORAL 05/05/16 09:00 06/04/16 08:59 05/07/16 09:40 Ondansetron HCl (Zofran) 4 mg Q6H PRN IVP Nausea & Vomiting 05/04/16 08:30 06/03/16 08:29 Pantoprazole (Protonix) 40 mg EVERY 12 HOURS IVP 05/04/16 09:00 06/03/16 08:59 05/07/16 21:13 Vancomycin HCl 1 ea 1 ea DAILY PRN MISC Per rx protocol 05/07/16 10:00 06/06/16 09:59 Vancomycin HCl/ Dextrose (Vancomycin/D5W) 275 ml @ 183.708 mls/hr Q24H IVPB 05/08/16 12:00 05/13/16 11:59 QUETA ZAMUDIO 19, 2017 09:38
[2016-05-08] MEDS: Memantine 10mg tab ORAL SCH ×2 (10:14→18:00)
[2016-05-08] MEDS: Pantoprazole Inj IVP SCH ×2 (10:15→21:57)
[2016-05-08] MEDS: Metoprolol 25mg tab ORAL SCH ×2 (10:15→21:56)
[2016-05-08] MEDS: LORazepam 0.5mg tab ORAL PRN (10:16)
[2016-05-08] MEDS: Vancomycin 1gm/D5W 275ml IVPB SCH ×2 (12:07)
--- NOTE | 2016-05-08 16:53 | Internal Med Progress Note ---
Subjective Date of Service: May 08, 2016 Physician Name Jatinder Knight Attending Physician Galileo Quezada MD Current Medications Medications (Trade) Dose Ordered Sig/Amy Route PRN Reason Start Time Stop Time Status Last Admin Dose Admin Acetaminophen (Tylenol) 650 mg Q6H PRN ORAL Mild Pain/Temp > 100.5 05/04/16 18:00 06/03/16 17:59 05/08/16 10:16 Lorazepam (Ativan) 0.5 mg BIDPRN PRN ORAL For Anxiety 05/04/16 08:30 05/11/16 08:29 05/08/16 10:16 Memantine (Namenda) 10 mg BID ORAL 05/04/16 09:00 06/03/16 08:59 05/08/16 10:14 Metoprolol Tartrate (Lopressor) 25 mg Q12HR ORAL 05/05/16 09:00 06/04/16 08:59 05/08/16 10:15 Ondansetron HCl (Zofran) 4 mg Q6H PRN IVP Nausea & Vomiting 05/04/16 08:30 06/03/16 08:29 Pantoprazole (Protonix) 40 mg EVERY 12 HOURS IVP 05/04/16 09:00 06/03/16 08:59 05/08/16 10:15 Vancomycin HCl 1 ea 1 ea DAILY PRN MISC Per rx protocol 05/07/16 10:00 06/06/16 09:59 Vancomycin HCl/ Dextrose (Vancomycin/D5W) 275 ml @ 183.708 mls/hr Q24H IVPB 05/08/16 12:00 05/13/16 11:59 05/08/16 12:07 Allergies: Coded Allergies: CLARITHROMYCIN (Verified Allergy, Unknown, 05/04/16) DEXTROMETHORPHAN (Verified Allergy, Unknown, 05/04/16) MACROLIDE ANTIBIOTICS (Verified Allergy, Unknown, 05/04/16) PENICILLINS (Verified Allergy, Unknown, 05/04/16) Uncoded Allergies: KETOLIDES (Allergy, Unknown, 05/04/16) RED DYES (Allergy, Unknown, 05/04/16) TARTRAZINE (Allergy, Unknown, 05/04/16) YELLOW DYE-NON TARTRAZINE (Allergy, Unknown, 05/04/16) ROS Limited/Unobtainable: Yes Subjective 85 YO F admitted with GI hemorrhage. S/P transfusion 2 units Packed RBC. S/P Endoscopy on 05/06/16. Cover for Int Med-Dr Quezada. Objective Last Vital Signs Date Time Temp Pulse Resp B/P Pulse Ox O2 Delivery O2 Flow Rate FiO2 05/08/16 16:31 68 05/08/16 15:42 97.7 18 105/58 99 Room Air 05/08/16 08:22 95.0 Laboratory Tests Test 05/08/16 05:30 White Blood Count 6.8 K/UL (4.8-10.8) Red Blood Count 2.91 M/UL (4.20-5.40) L Hemoglobin 9.6 G/DL (12.0-16.0) L Hematocrit 29.6 % (37.0-47.0) L Mean Corpuscular Volume 102 FL (80-99) H Mean Corpuscular Hemoglobin 33.1 PG (27.0-31.0) H Mean Corpuscular Hemoglobin Concent 32.5 G/DL (32.0-36.0) Red Cell Distribution Width 17.3 % (11.6-14.8) H Platelet Count 141 K/UL (150-450) L Mean Platelet Volume 6.7 FL (6.5-10.1) Neutrophils (%) (Auto) 58.5 % (45.0-75.0) Lymphocytes (%) (Auto) 27.9 % (20.0-45.0) Monocytes (%) (Auto) 8.3 % (1.0-10.0) Eosinophils (%) (Auto) 3.3 % (0.0-3.0) H Basophils (%) (Auto) 2.0 % (0.0-2.0) Sodium Level 143 mEQ/L (135-145) Potassium Level 3.5 mEQ/L (3.4-4.9) Chloride Level 107 mEQ/L (98-107) Carbon Dioxide Level 23 mEQ/L (20-30) Anion Gap 13 (5-15) Blood Urea Nitrogen 8 mg/dL (7-23) Creatinine 0.6 mg/dL (0.5-0.9) Estimat Glomerular Filtration Rate mL/min (>60) Glucose Level 75 mg/dL (74-106) Calcium Level 7.7 mg/dL (8.6-10.2) L Intake and Output 05/07/16 05/08/16 19:00 07:00 Intake Total 835.000 ml 210 ml Output Total 400 ml 600 ml Balance 435.000 ml -390 ml Intake Oral 560 ml 210 ml IV Total 275.000 ml Output Urine Total 400 ml 600 ml # Bowel Movements 1 1 Objective General Appearance: WD/WN, no apparent distress EENT: PERRL/EOMI, normal ENT inspection Neck: non-tender, normal alignment, supple Cardiovascular: normal peripheral pulses, no gallop/murmur, no JVD, tachycardia , irregularly irregular Respiratory/Chest: chest wall non-tender, lungs clear, normal breath sounds, no respiratory distress, no accessory muscle use Abdomen: soft, decreased bowel sounds, guarding, tender Extremities: normal range of motion Skin: normal pigmentation, warm/dry Assessment/Plan Problem List: (1) Generalized weakness (2) Vertigo (3) CAD (coronary artery disease) (4) HTN (hypertension) Assessment & Plan: Cont metoprolol (5) CHF (congestive heart failure) (6) Alzheimer's dementia (7) Aortic stenosis (8) Tachycardia Assessment & Plan: Due to Atrial fibrillation-see cardiology note. (9) UGIB (upper gastrointestinal bleed) Assessment & Plan: S/P Endoscopy on 05/06/16; Dx=Gastritis. See GI note. (10) Anemia Assessment & Plan: Due to GI bleed. S/P transfusion 2 units PRBC. (11) Atrial fibrillation Assessment & Plan: Rapid ventricular rate. See cardiology note-Dr Lawrence. (12) Coffee ground emesis (13) Bacteremia Assessment & Plan: Coag neg staph and diptheroids. See ID note. Continue vancomycin per ID. Await repeat culture results. (14) Gastritis Status: progressing JATINDER KNIGHT May 08, 2016 16:53
--- NOTE | 2016-05-08 22:46 | General Progress Note ---
Assessment/Plan Assessment/Plan ASSESSMENT: 1. Anemia secondary to coffee-ground emesis and gastrointestinal bleed. Planning for scope per GI 2. Decreased hemoglobin and hematocrit r/o GI bleed 3. Anemia secondary to iron deficiency 4. Leukocytosis due to reactive process. 5. Hypertension secondary to bleed. 6. Atrial fibrillation with rapid ventricular response. 7. Coagulopathy secondary potential malnutrition versus vitamin K deficiency. RECOMMENDATIONS: 1. Back on med [facility] [place] [facility] 2. Hemoglobin goal>7. 3. Platelets goal less than 20,000. 4. Anemia workup reviewed. potentially to undergo egd 5. Ultrasound of the abdomen pending 6. Occult blood is pending. 7. DVT prophylaxis with SCDs. 8. GI prophylaxis with pantoprazole . 9. Appreciate GI and cards revs 10. staff Thank you, Prince Vanegas MD Subjective Constitutional: Reports: no symptoms HEENT: Reports: no symptoms Cardiovascular: Reports: no symptoms Respiratory: Reports: no symptoms Gastrointestinal/Abdominal: Reports: no symptoms Genitourinary: Reports: no symptoms Endocrine: Reports: no symptoms Hematologic/Lymphatic: Reports: no symptoms Allergies: Coded Allergies: CLARITHROMYCIN (Verified Allergy, Unknown, 05/04/16) DEXTROMETHORPHAN (Verified Allergy, Unknown, 05/04/16) MACROLIDE ANTIBIOTICS (Verified Allergy, Unknown, 05/04/16) PENICILLINS (Verified Allergy, Unknown, 05/04/16) Uncoded Allergies: KETOLIDES (Allergy, Unknown, 05/04/16) RED DYES (Allergy, Unknown, 05/04/16) TARTRAZINE (Allergy, Unknown, 05/04/16) YELLOW DYE-NON TARTRAZINE (Allergy, Unknown, 05/04/16) Objective Last 24 Hour Vital Signs Date Time Temp Pulse Resp B/P Pulse Ox O2 Delivery O2 Flow Rate FiO2 05/08/16 21:56 90 118/62 05/08/16 20:00 96.4 90 20 118/62 97 Room Air 05/08/16 16:31 68 05/08/16 15:42 97.7 70 18 105/58 99 Room Air 05/08/16 12:00 68 05/08/16 11:52 97.0 69 20 111/62 96 Room Air 05/08/16 10:15 69 114/67 05/08/16 08:23 97.5 69 18 114/67 95 Room Air 05/08/16 08:22 97.5 69 18 114/67 95 Room Air 95.0 05/08/16 08:00 68 05/08/16 04:00 97.3 74 16 99/56 98 Nasal Cannula 2.0 05/08/16 04:00 94 05/08/16 00:00 94 05/08/16 00:00 97.7 84 18 118/63 98 Nasal Cannula 2.0 Intake and Output 05/07/16 05/08/16 19:00 07:00 Intake Total 835.000 ml 210 ml Output Total 400 ml 600 ml Balance 435.000 ml -390 ml Intake Oral 560 ml 210 ml IV Total 275.000 ml Output Urine Total 400 ml 600 ml # Bowel Movements 1 1 Laboratory Tests 05/08/16 05:30: White Blood Count 6.8, Red Blood Count 2.91L, Hemoglobin 9.6L, Hematocrit 29.6L , Mean Corpuscular Volume 102H, Mean Corpuscular Hemoglobin 33.1H, Mean Corpuscular Hemoglobin Concent 32.5, Red Cell Distribution Width 17.3H, Platelet Count 141L, Mean Platelet Volume 6.7, Neutrophils (%) (Auto) 58.5, Lymphocytes (%) (Auto) 27.9, Monocytes (%) (Auto) 8.3, Eosinophils (%) (Auto) 3.3H, Basophils (%) (Auto) 2.0, Sodium Level 143, Potassium Level 3.5, Chloride Level 107, Carbon Dioxide Level 23, Anion Gap 13, Blood Urea Nitrogen 8, Creatinine 0.6, Estimat Glomerular Filtration Rate , Glucose Level 75, Calcium Level 7.7L Height (Feet): 4 Height (Inches): 10.00 Weight (Pounds): 148 General Appearance: no apparent distress EENT: TMs normal Neck: supple Cardiovascular: normal rate Respiratory/Chest: lungs clear Abdomen: soft Pelvis: no masses Extremities: non-tender Edema: no edema noted Arm (L), no edema noted Arm (R), no edema noted Leg (L), no edema noted Leg (R), no edema noted Pedal (L), no edema noted Pedal (R), no edema noted Generalized Neurologic: alert Skin: warm/dry Lymphatic: normal anterior cervical (L), normal anterior cervical (R), normal axillary (L), normal axillary (R), normal inguinal (L), normal inguinal (R), normal other, normal posterior cervical (L), normal posterior cervical (R), normal submandibular (L), normal submandibular (R), normal supraclavicular (L), normal supraclavicular (R) PRINCE VANEGAS May 08, 2016 22:46
[2016-05-09] VITALS: BP 111/67
[2016-05-09 04:00] VITALS: BP 117/69
[2016-05-09 07:45] LABS: BASOPHILS % (AUTO) 1.2 % (0.0-2.0); EOSINOPHILS % (AUTO) 2.6 % (0.0-3.0); LYMPHOCYTES % (AUTO) 27.1 % (20.0-45.0); MEAN CORPUSCULAR HEMOGLOBIN 33.6 PG (27.0-31.0); MEAN CORPUSCULAR HGB CONC 33.3 G/DL (32.0-36.0); MEAN CORPUSCULAR VOLUME 101 FL (80-99); MEAN PLATELET VOLUME 6.7 FL (6.5-10.1); MONOCYTES % (AUTO) 8.7 % (1.0-10.0); NEUTROPHILS % (AUTO) 60.5 % (45.0-75.0); PLATELET COUNT 152 K/UL (150-450); RED CELL DISTRIBUTION WIDTH 17.9 % (11.6-14.8); WHITE BLOOD COUNT 7.6 K/UL (4.8-10.8)
[2016-05-09 08:00] VITALS: BP 119/70
[2016-05-09 08:08] LABS: ANION GAP 16 (5-15); CALCIUM 8.1 mg/dL (8.6-10.2); CARBON DIOXIDE 23 mEQ/L (20-30); CHLORIDE 102 mEQ/L (98-107); CREATININE 0.6 mg/dL (0.5-0.9); HEMOLYSIS 4; POTASSIUM 3.6 mEQ/L (3.4-4.9); SODIUM 141 mEQ/L (135-145)
[2016-05-09] MEDS: Metoprolol 25mg tab ORAL SCH ×2 (09:10→21:00)
[2016-05-09] MEDS: LORazepam 0.5mg tab ORAL PRN ×2 (09:10)
[2016-05-09] MEDS: Pantoprazole Inj IVP SCH ×2 (09:10→21:07)
[2016-05-09] MEDS: Memantine 10mg tab ORAL SCH ×2 (09:10→17:39)
--- NOTE | 2016-05-09 09:43 | Infectious Diseases Prog Note ---
Assessment/Plan Assessment/Plan ASSESSMENT: 85 y/o female with: // Polymicrobial ( CONS 1/4, diptheroids 1/4 ) bacteremia, m/l contaminants - repeat BCx NGTD - TTE(-) SBE // Leukocytosis, mild - resolved, afebrile ( GIB contributing ) // SP UGIB - Hgb stable - SP EGD 05/06: diffuse gastritis, path pending // FOBT(+) anemia SP PRBCs // h/o CAD / CHF, EF 55% // Aortic stenosis // Severe pulmonary HTN // Alzheimer's dementia // MRSA colonized // Macrolide, PCN allergies PLAN: - DC IV vancomycin d# 3, monitor pt off of ABX - f/u path - monitor CBC, temperatures - monitor BMP - transfuse prn Subjective Allergies: Coded Allergies: CLARITHROMYCIN (Verified Allergy, Unknown, 05/04/16) DEXTROMETHORPHAN (Verified Allergy, Unknown, 05/04/16) MACROLIDE ANTIBIOTICS (Verified Allergy, Unknown, 05/04/16) PENICILLINS (Verified Allergy, Unknown, 05/04/16) Uncoded Allergies: KETOLIDES (Allergy, Unknown, 05/04/16) RED DYES (Allergy, Unknown, 05/04/16) TARTRAZINE (Allergy, Unknown, 05/04/16) YELLOW DYE-NON TARTRAZINE (Allergy, Unknown, 05/04/16) Subjective remains afebrile repeat BCx NGTD Objective Vital Signs Last 24 Hour Vital Signs Date Time Temp Pulse Resp B/P Pulse Ox O2 Delivery O2 Flow Rate FiO2 05/09/16 09:10 109 119/70 05/09/16 08:00 97.2 109 17 119/70 98 Nasal Cannula 2.0 05/09/16 04:00 97.0 20 117/69 98 Room Air 05/09/16 04:00 111 05/09/16 00:00 98.6 20 111/67 97 Room Air 05/08/16 21:56 90 118/62 05/08/16 20:00 96.4 90 20 118/62 97 Room Air 05/08/16 20:00 68 05/08/16 16:31 68 05/08/16 15:42 97.7 70 18 105/58 99 Room Air 05/08/16 12:00 68 05/08/16 11:52 97.0 69 20 111/62 96 Room Air 05/08/16 10:15 69 114/67 Height (Feet): 4 Height (Inches): 10.00 Weight (Pounds): 148 General Appearance: no acute distress Respiratory/Chest: no respiratory distress Cardiovascular: normal rate, regular rhythm Abdomen: normal bowel sounds, soft, non tender, non distended Microbiology Date/Time Source Procedure Growth Status 05/07/16 10:45 Blood Blood Culture - Preliminary NO GROWTH AFTER 24 HOURS Resulted 05/07/16 10:30 Blood Blood Culture - Preliminary NO GROWTH AFTER 24 HOURS Resulted Laboratory Tests Test 05/09/16 07:08 White Blood Count 7.6 K/UL (4.8-10.8) Red Blood Count 2.90 M/UL (4.20-5.40) L Hemoglobin 9.7 G/DL (12.0-16.0) L Hematocrit 29.2 % (37.0-47.0) L Mean Corpuscular Volume 101 FL (80-99) H Mean Corpuscular Hemoglobin 33.6 PG (27.0-31.0) H Mean Corpuscular Hemoglobin Concent 33.3 G/DL (32.0-36.0) Red Cell Distribution Width 17.9 % (11.6-14.8) H Platelet Count 152 K/UL (150-450) Mean Platelet Volume 6.7 FL (6.5-10.1) Neutrophils (%) (Auto) 60.5 % (45.0-75.0) Lymphocytes (%) (Auto) 27.1 % (20.0-45.0) Monocytes (%) (Auto) 8.7 % (1.0-10.0) Eosinophils (%) (Auto) 2.6 % (0.0-3.0) Basophils (%) (Auto) 1.2 % (0.0-2.0) Sodium Level 141 mEQ/L (135-145) Potassium Level 3.6 mEQ/L (3.4-4.9) Chloride Level 102 mEQ/L (98-107) Carbon Dioxide Level 23 mEQ/L (20-30) Anion Gap 16 (5-15) H Blood Urea Nitrogen 9 mg/dL (7-23) Creatinine 0.6 mg/dL (0.5-0.9) Estimat Glomerular Filtration Rate mL/min (>60) Glucose Level 97 mg/dL (74-106) Calcium Level 8.1 mg/dL (8.6-10.2) L Carcinoembryonic Antigen 5.4 ng/mL H Current Medications Medications (Trade) Dose Ordered Sig/Amy Route PRN Reason Start Time Stop Time Status Last Admin Dose Admin Acetaminophen (Tylenol) 650 mg Q6H PRN ORAL Mild Pain/Temp > 100.5 05/04/16 18:00 06/03/16 17:59 05/08/16 18:17 Lorazepam (Ativan) 0.5 mg BIDPRN PRN ORAL For Anxiety 05/04/16 08:30 05/11/16 08:29 05/09/16 09:10 Memantine (Namenda) 10 mg BID ORAL 05/04/16 09:00 06/03/16 08:59 05/09/16 09:10 Metoprolol Tartrate (Lopressor) 25 mg Q12HR ORAL 05/05/16 09:00 06/04/16 08:59 05/09/16 09:10 Ondansetron HCl (Zofran) 4 mg Q6H PRN IVP Nausea & Vomiting 05/04/16 08:30 06/03/16 08:29 Pantoprazole (Protonix) 40 mg EVERY 12 HOURS IVP 05/04/16 09:00 06/03/16 08:59 05/09/16 09:10 Vancomycin HCl 1 ea 1 ea DAILY PRN MISC Per rx protocol 05/07/16 10:00 06/06/16 09:59 Vancomycin HCl/ Dextrose (Vancomycin/D5W) 275 ml @ 183.708 mls/hr Q24H IVPB 05/08/16 12:00 05/13/16 11:59 05/08/16 12:07 QUETA ZAMUDIO 20, 2017 09:43
--- NOTE | 2016-05-09 11:28 | General Progress Note ---
Assessment/Plan Problem List: (1) Coffee ground emesis ICD Codes: K92.0 - Hematemesis SNOMED: 65821959 (2) Hypoalbuminemia ICD Codes: E88.09 - Other disorders of plasma-protein metabolism, not elsewhere classified SNOMED: 429410175 (3) Leukocytosis ICD Codes: D72.829 - Elevated white blood cell count, unspecified SNOMED: 960620796, 298181390 (4) Atrial fibrillation ICD Codes: I48.91 - Unspecified atrial fibrillation SNOMED: 69818476 (5) UGIB (upper gastrointestinal bleed) ICD Codes: K92.2 - Gastrointestinal hemorrhage, unspecified SNOMED: 09398904 (6) Anemia ICD Codes: D64.9 - Anemia, unspecified SNOMED: 028626351 Qualifiers: Qualified Codes: D64.9 - Anemia, unspecified Assessment/Plan s/p EGD stable H&H fu labs tolerating diet repeat stool ob and plan colonoscopy if positive o/w as out patient Subjective ROS Limited/Unobtainable: No Allergies: Coded Allergies: CLARITHROMYCIN (Verified Allergy, Unknown, 05/04/16) DEXTROMETHORPHAN (Verified Allergy, Unknown, 05/04/16) MACROLIDE ANTIBIOTICS (Verified Allergy, Unknown, 05/04/16) PENICILLINS (Verified Allergy, Unknown, 05/04/16) Uncoded Allergies: KETOLIDES (Allergy, Unknown, 05/04/16) RED DYES (Allergy, Unknown, 05/04/16) TARTRAZINE (Allergy, Unknown, 05/04/16) YELLOW DYE-NON TARTRAZINE (Allergy, Unknown, 05/04/16) Subjective no event Objective Last 24 Hour Vital Signs Date Time Temp Pulse Resp B/P Pulse Ox O2 Delivery O2 Flow Rate FiO2 05/09/16 09:10 109 119/70 05/09/16 08:00 97.2 109 17 119/70 98 Nasal Cannula 2.0 05/09/16 04:00 97.0 20 117/69 98 Room Air 05/09/16 04:00 111 05/09/16 00:00 98.6 20 111/67 97 Room Air 05/08/16 21:56 90 118/62 05/08/16 20:00 96.4 90 20 118/62 97 Room Air 05/08/16 20:00 68 05/08/16 16:31 68 05/08/16 15:42 97.7 70 18 105/58 99 Room Air 05/08/16 12:00 68 05/08/16 11:52 97.0 69 20 111/62 96 Room Air Intake and Output 05/08/16 05/09/16 19:00 07:00 Intake Total 635.000 ml 170 ml Output Total 350 ml 550 ml Balance 285.000 ml -380 ml Intake Oral 360 ml 170 ml IV Total 275.000 ml Output Urine Total 350 ml 550 ml Laboratory Tests 05/09/16 07:08: White Blood Count 7.6, Red Blood Count 2.90L, Hemoglobin 9.7L, Hematocrit 29.2L , Mean Corpuscular Volume 101H, Mean Corpuscular Hemoglobin 33.6H, Mean Corpuscular Hemoglobin Concent 33.3, Red Cell Distribution Width 17.9H, Platelet Count 152, Mean Platelet Volume 6.7, Neutrophils (%) (Auto) 60.5, Lymphocytes (%) (Auto) 27.1, Monocytes (%) (Auto) 8.7, Eosinophils (%) (Auto) 2.6, Basophils (%) (Auto) 1.2, Sodium Level 141, Potassium Level 3.6, Chloride Level 102, Carbon Dioxide Level 23, Anion Gap 16H, Blood Urea Nitrogen 9, Creatinine 0.6, Estimat Glomerular Filtration Rate , Glucose Level 97, Calcium Level 8.1L, Carcinoembryonic Antigen 5.4H Height (Feet): 4 Height (Inches): 10.00 Weight (Pounds): 148 General Appearance: no apparent distress EENT: normal ENT inspection Neck: supple Cardiovascular: normal rate Respiratory/Chest: decreased breath sounds Abdomen: normal bowel sounds, non tender, soft Extremities: non-tender HERRERA ANTUNEZ May 09, 2016 11:28
[2016-05-09 12:16] VITALS: BP 109/90
--- NOTE | 2016-05-09 12:26 | General Progress Note ---
Assessment/Plan Assessment/Plan ASSESSMENT: 1. Anemia secondary to coffee-ground emesis and gastrointestinal bleed. Planning for scope per GI 2. Decreased hemoglobin and hematocrit r/o GI bleed being evaluated by GI. egd with gastritis 3. Anemia secondary to iron deficiency - on iv iron 4. Leukocytosis due to reactive process. better 5. Hypertension now improved 6. Atrial fibrillation with rapid ventricular response. 7. Coagulopathy secondary potential malnutrition versus vitamin K deficiency. RECOMMENDATIONS: 1. Begin iv iron 2. Hemoglobin goal>7. 3. Platelets goal less than 20,000. 4. If occult +, then colo 5. Ultrasound of the abdomen shows no cirrhosis 6. Occult blood is pending. 7. DVT prophylaxis with SCDs. 8. GI prophylaxis with pantoprazole . 9. Appreciate GI and cards recs 10. staff Thank you, Quique Vanegas MD Subjective Constitutional: Reports: no symptoms HEENT: Reports: no symptoms Cardiovascular: Reports: no symptoms Respiratory: Reports: no symptoms Gastrointestinal/Abdominal: Reports: no symptoms Genitourinary: Reports: no symptoms Neurologic/Psychiatric: Reports: no symptoms Endocrine: Reports: no symptoms Hematologic/Lymphatic: Reports: anemia Allergies: Coded Allergies: CLARITHROMYCIN (Verified Allergy, Unknown, 05/04/16) DEXTROMETHORPHAN (Verified Allergy, Unknown, 05/04/16) MACROLIDE ANTIBIOTICS (Verified Allergy, Unknown, 05/04/16) PENICILLINS (Verified Allergy, Unknown, 05/04/16) Uncoded Allergies: KETOLIDES (Allergy, Unknown, 05/04/16) RED DYES (Allergy, Unknown, 05/04/16) TARTRAZINE (Allergy, Unknown, 05/04/16) YELLOW DYE-NON TARTRAZINE (Allergy, Unknown, 05/04/16) Subjective no fevers, no chills, have started on iv iron today Objective Last 24 Hour Vital Signs Date Time Temp Pulse Resp B/P Pulse Ox O2 Delivery O2 Flow Rate FiO2 05/09/16 12:16 97.2 106 17 109/90 98 Nasal Cannula 05/09/16 09:10 109 119/70 05/09/16 08:00 97.2 109 17 119/70 98 Nasal Cannula 2.0 05/09/16 04:00 97.0 20 117/69 98 Room Air 05/09/16 04:00 111 05/09/16 00:00 98.6 20 111/67 97 Room Air 05/08/16 21:56 90 118/62 05/08/16 20:00 96.4 90 20 118/62 97 Room Air 05/08/16 20:00 68 05/08/16 16:31 68 05/08/16 15:42 97.7 70 18 105/58 99 Room Air Intake and Output 05/08/16 05/09/16 19:00 07:00 Intake Total 635.000 ml 170 ml Output Total 350 ml 550 ml Balance 285.000 ml -380 ml Intake Oral 360 ml 170 ml IV Total 275.000 ml Output Urine Total 350 ml 550 ml Laboratory Tests 05/09/16 07:08: White Blood Count 7.6, Red Blood Count 2.90L, Hemoglobin 9.7L, Hematocrit 29.2L , Mean Corpuscular Volume 101H, Mean Corpuscular Hemoglobin 33.6H, Mean Corpuscular Hemoglobin Concent 33.3, Red Cell Distribution Width 17.9H, Platelet Count 152, Mean Platelet Volume 6.7, Neutrophils (%) (Auto) 60.5, Lymphocytes (%) (Auto) 27.1, Monocytes (%) (Auto) 8.7, Eosinophils (%) (Auto) 2.6, Basophils (%) (Auto) 1.2, Sodium Level 141, Potassium Level 3.6, Chloride Level 102, Carbon Dioxide Level 23, Anion Gap 16H, Blood Urea Nitrogen 9, Creatinine 0.6, Estimat Glomerular Filtration Rate , Glucose Level 97, Calcium Level 8.1L, Carcinoembryonic Antigen 5.4H Height (Feet): 4 Height (Inches): 10.00 Weight (Pounds): 148 General Appearance: alert EENT: TMs normal Neck: supple Cardiovascular: regular rhythm Respiratory/Chest: normal breath sounds Abdomen: soft Extremities: non-tender Edema: 1+ Leg (L), 1+ Leg (R) Edema: mild edema Neurologic: alert Skin: warm/dry Quique Vanegas May 09, 2016 12:26
[2016-05-09] MEDS: Vancomycin 1gm/D5W 275ml IVPB SCH ×2 (12:35)
--- NOTE | 2016-05-09 13:17 | Pulmonology Progress Note ---
Assessment/Plan Problems: (1) UGIB (upper gastrointestinal bleed) (2) Atrial fibrillation (3) Anemia Assessment/Plan h/h stable s/p prbc cardiology f/u dig level is normal now OB+,colonoscopy as outpatient med/surg dc planning Subjective Interval Events: no new events Allergies: Coded Allergies: CLARITHROMYCIN (Verified Allergy, Unknown, 05/04/16) DEXTROMETHORPHAN (Verified Allergy, Unknown, 05/04/16) MACROLIDE ANTIBIOTICS (Verified Allergy, Unknown, 05/04/16) PENICILLINS (Verified Allergy, Unknown, 05/04/16) Uncoded Allergies: KETOLIDES (Allergy, Unknown, 05/04/16) RED DYES (Allergy, Unknown, 05/04/16) TARTRAZINE (Allergy, Unknown, 05/04/16) YELLOW DYE-NON TARTRAZINE (Allergy, Unknown, 05/04/16) Objective Last 24 Hour Vital Signs Date Time Temp Pulse Resp B/P Pulse Ox O2 Delivery O2 Flow Rate FiO2 05/09/16 12:16 97.2 106 17 109/90 98 Nasal Cannula 05/09/16 09:10 109 119/70 05/09/16 08:00 97.2 109 17 119/70 98 Nasal Cannula 2.0 05/09/16 04:00 97.0 20 117/69 98 Room Air 05/09/16 04:00 111 05/09/16 00:00 98.6 20 111/67 97 Room Air 05/08/16 21:56 90 118/62 05/08/16 20:00 96.4 90 20 118/62 97 Room Air 05/08/16 20:00 68 05/08/16 16:31 68 05/08/16 15:42 97.7 70 18 105/58 99 Room Air Intake and Output 05/08/16 05/09/16 19:00 07:00 Intake Total 635.000 ml 170 ml Output Total 350 ml 550 ml Balance 285.000 ml -380 ml Intake Oral 360 ml 170 ml IV Total 275.000 ml Output Urine Total 350 ml 550 ml Objective General Appearance: WD/WN HEENT: normocephalic, atraumatic Respiratory/Chest: chest wall non-tender, lungs clear Breasts: no masses Cardiovascular: normal peripheral pulses, normal rate, regular rhythm Abdomen: normal bowel sounds, soft, non tender, no organomegaly, non distended Genitourinary: normal external genitalia Skin: no rash, no lesions 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 Lymphatic: no neck adenopathy General Appearance: WD/WN Microbiology Date/Time Source Procedure Growth Status 05/07/16 10:45 Blood Blood Culture - Preliminary NO GROWTH AFTER 24 HOURS Resulted 05/07/16 10:30 Blood Blood Culture - Preliminary NO GROWTH AFTER 24 HOURS Resulted Laboratory Tests 05/09/16 07:08: White Blood Count 7.6, Red Blood Count 2.90L, Hemoglobin 9.7L, Hematocrit 29.2L , Mean Corpuscular Volume 101H, Mean Corpuscular Hemoglobin 33.6H, Mean Corpuscular Hemoglobin Concent 33.3, Red Cell Distribution Width 17.9H, Platelet Count 152, Mean Platelet Volume 6.7, Neutrophils (%) (Auto) 60.5, Lymphocytes (%) (Auto) 27.1, Monocytes (%) (Auto) 8.7, Eosinophils (%) (Auto) 2.6, Basophils (%) (Auto) 1.2, Sodium Level 141, Potassium Level 3.6, Chloride Level 102, Carbon Dioxide Level 23, Anion Gap 16H, Blood Urea Nitrogen 9, Creatinine 0.6, Estimat Glomerular Filtration Rate , Glucose Level 97, Calcium Level 8.1L, Carcinoembryonic Antigen 5.4H 05/09/16 07:30: Iron Level [Pending], Unsaturated Iron Binding [Pending], Ferritin [Pending] Current Medications Medications (Trade) Dose Ordered Sig/Amy Route PRN Reason Start Time Stop Time Status Last Admin Dose Admin Acetaminophen (Tylenol) 650 mg Q6H PRN ORAL Mild Pain/Temp > 100.5 05/04/16 18:00 06/03/16 17:59 05/08/16 18:17 Iron Sucrose/ Sodium Chloride (Venofer/Sodium Chloride) 60 ml @ 240 mls/hr BEDTIME IVPB 05/09/16 21:00 05/13/16 21:14 UNV Lorazepam (Ativan) 0.5 mg BIDPRN PRN ORAL For Anxiety 05/04/16 08:30 05/11/16 08:29 05/09/16 09:10 Memantine (Namenda) 10 mg BID ORAL 05/04/16 09:00 06/03/16 08:59 05/09/16 09:10 Metoprolol Tartrate (Lopressor) 25 mg Q12HR ORAL 05/05/16 09:00 06/04/16 08:59 05/09/16 09:10 Ondansetron HCl (Zofran) 4 mg Q6H PRN IVP Nausea & Vomiting 05/04/16 08:30 06/03/16 08:29 Pantoprazole (Protonix) 40 mg EVERY 12 HOURS IVP 05/04/16 09:00 06/03/16 08:59 05/09/16 09:10 Vancomycin HCl 1 ea 1 ea DAILY PRN MISC Per rx protocol 05/07/16 10:00 05/09/16 23:59 Vancomycin HCl 1 gm/Dextrose 275 ml @ 183.708 mls/hr Q24H IVPB 05/08/16 12:00 05/09/16 23:59 05/09/16 12:35 NAPOLEON JI May 09, 2016 13:17
[2016-05-09 14:17] LABS: HEMOLYSIS 6; IRON 28 ug/dL (37-145); TOTAL IRON BINDING CAPACITY 241 ug/dL (250-400)
[2016-05-09 14:19] LABS: FERRITIN 74 ng/mL (13-150)
--- NOTE | 2016-05-09 15:50 | Cardiac Electrophysiology PN ---
Assessment/Plan Status Narrative Technically difficult study due to poor acoustic windows. Study quality precludes accurate assessment of regional wall motion. Normal left ventricular chamber size, systolic function and wall motion. Left ventricular ejection fraction estimated to be 55 %. No evidence of ventricular hypertrophy. No evidence of pericardial fat or effusion. SEVERE left atrial enlargement. Right cardiac chamber sizes are within normal limits. Aortic valve calcification with decreased cusp excursion c/w aortic stenosis. Mildly thickened mitral valve leaflets with normal excursion. Mild mitral annulus and aortic root calcification. Pulmonic valve not well visualized. Normal tricuspid valve structure. A color flow and spectral Doppler study was performed and revealed: No aortic regurgitation. Peak aortic valve gradient of 41 mmHg and a mean of 22 mmHg. Aortic valve area 0.6 cm2 calculated by continuity equation. Moderate to severe mitral regurgitation. Left ventricular diastolic function could not be determined due to A-Fib. Moderate tricuspid regurgitation. Tricuspid systolic velocities suggests peak right ventricular systolic pressure of 77 mmHg, consistent with severe pulmonary hypertension. Trace pulmonic regurgitation present. Assessment/Plan 1. Atrial fibrillation and flutter with rapid ventricular rates. No congestive heart failure or acute coronary syndrome. On metoprolol 25 bid.Not a candidate for cardioversion given the persistent atrial fibrillation and is not a candidate for anticoagulation due to gastrointestinal bleeding. Dig level 3.1 down to 1.7 on 05/07/16. Resume Digoxin 0.125 mg daily. 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 2. Severe Aortic stenosis CALVIN 0.6. 3. Severe pulmonary HTN 2. GI bleed, s/p PRBC and EGD that showed gastritis DW RN Subjective Subjective Got episodes of bradycardia down to 35 3 days ago.Had episodes of atrial fib with RVR last night and got Digoxin. Comfortable RN at bedside. Objective Last 24 Hour Vital Signs Date Time Temp Pulse Resp B/P Pulse Ox O2 Delivery O2 Flow Rate FiO2 05/09/16 12:16 97.2 106 17 109/90 98 Nasal Cannula 05/09/16 12:00 69 05/09/16 09:10 109 119/70 05/09/16 08:00 97.2 109 17 119/70 98 Nasal Cannula 2.0 05/09/16 04:00 97.0 20 117/69 98 Room Air 05/09/16 04:00 111 05/09/16 00:00 98.6 20 111/67 97 Room Air 05/08/16 21:56 90 118/62 3/19/17 20:00 96.4 90 20 118/62 97 Room Air 05/08/16 20:00 68 05/08/16 16:31 68 Intake and Output 05/08/16 05/09/16 19:00 07:00 Intake Total 635.000 ml 170 ml Output Total 350 ml 550 ml Balance 285.000 ml -380 ml Intake Oral 360 ml 170 ml IV Total 275.000 ml Output Urine Total 350 ml 550 ml Laboratory Tests Test 05/09/16 07:08 05/09/16 07:30 White Blood Count 7.6 K/UL (4.8-10.8) Red Blood Count 2.90 M/UL (4.20-5.40) L Hemoglobin 9.7 G/DL (12.0-16.0) L Hematocrit 29.2 % (37.0-47.0) L Mean Corpuscular Volume 101 FL (80-99) H Mean Corpuscular Hemoglobin 33.6 PG (27.0-31.0) H Mean Corpuscular Hemoglobin Concent 33.3 G/DL (32.0-36.0) Red Cell Distribution Width 17.9 % (11.6-14.8) H Platelet Count 152 K/UL (150-450) Mean Platelet Volume 6.7 FL (6.5-10.1) Neutrophils (%) (Auto) 60.5 % (45.0-75.0) Lymphocytes (%) (Auto) 27.1 % (20.0-45.0) Monocytes (%) (Auto) 8.7 % (1.0-10.0) Eosinophils (%) (Auto) 2.6 % (0.0-3.0) Basophils (%) (Auto) 1.2 % (0.0-2.0) Sodium Level 141 mEQ/L (135-145) Potassium Level 3.6 mEQ/L (3.4-4.9) Chloride Level 102 mEQ/L (98-107) Carbon Dioxide Level 23 mEQ/L (20-30) Anion Gap 16 (5-15) H Blood Urea Nitrogen 9 mg/dL (7-23) Creatinine 0.6 mg/dL (0.5-0.9) Estimat Glomerular Filtration Rate mL/min (>60) Glucose Level 97 mg/dL (74-106) Calcium Level 8.1 mg/dL (8.6-10.2) L Carcinoembryonic Antigen 5.4 ng/mL H Iron Level 28 ug/dL (37-145) L Total Iron Binding Capacity 241 ug/dL (250-400) L Percent Iron Saturation 12 % (15-50) L Unsaturated Iron Binding 213 ug/dL (112-346) Ferritin 74 ng/mL (13-150) Microbiology Date/Time Source Procedure Growth Status 05/07/16 10:45 Blood Blood Culture - Preliminary NO GROWTH AFTER 24 HOURS Resulted 05/07/16 10:30 Blood Blood Culture - Preliminary NO GROWTH AFTER 24 HOURS Resulted Objective HEENT: No JVD LUNGS: Clear to auscultation bilaterally. HEART: Regular S1 and S2 with a 2/6 systolic ejection murmur aortic area ABDOMEN: Soft and nontender. No palpable mass. EXTREMITIES: A 1+ pedal and ankle edema bilaterally. CLAIRE KEY May 09, 2016 15:50
[2016-05-09 16:00] VITALS: BP 139/82
[2016-05-09] MEDS: Digoxin 0.125mg tab ORAL SCH (17:39)
--- NOTE | 2016-05-09 18:10 | Internal Med Progress Note ---
Subjective Date of Service: May 09, 2016 Physician Name Jatinder Knight Attending Physician Galileo Quezada MD Current Medications Medications (Trade) Dose Ordered Sig/Amy Route PRN Reason Start Time Stop Time Status Last Admin Dose Admin Acetaminophen (Tylenol) 650 mg Q6H PRN ORAL Mild Pain/Temp > 100.5 05/04/16 18:00 06/03/16 17:59 05/08/16 18:17 Digoxin (Lanoxin) 0.125 mg DAILY ORAL 05/09/16 17:00 06/08/16 16:59 05/09/16 17:39 Iron Sucrose/ Sodium Chloride (Venofer/Sodium Chloride) 60 ml @ 240 mls/hr BEDTIME IVPB 05/09/16 21:00 05/13/16 21:14 Lorazepam (Ativan) 0.5 mg BIDPRN PRN ORAL For Anxiety 05/04/16 08:30 05/11/16 08:29 05/09/16 09:10 Memantine (Namenda) 10 mg BID ORAL 05/04/16 09:00 06/03/16 08:59 05/09/16 17:39 Metoprolol Tartrate (Lopressor) 25 mg Q12HR ORAL 05/05/16 09:00 06/04/16 08:59 05/09/16 09:10 Ondansetron HCl (Zofran) 4 mg Q6H PRN IVP Nausea & Vomiting 05/04/16 08:30 06/03/16 08:29 Pantoprazole (Protonix) 40 mg EVERY 12 HOURS IVP 05/04/16 09:00 06/03/16 08:59 05/09/16 09:10 Vancomycin HCl 1 ea 1 ea DAILY PRN MISC Per rx protocol 05/07/16 10:00 05/09/16 23:59 Vancomycin HCl 1 gm/Dextrose 275 ml @ 183.708 mls/hr Q24H IVPB 05/08/16 12:00 05/09/16 23:59 05/09/16 12:35 Allergies: Coded Allergies: CLARITHROMYCIN (Verified Allergy, Unknown, 05/04/16) DEXTROMETHORPHAN (Verified Allergy, Unknown, 05/04/16) MACROLIDE ANTIBIOTICS (Verified Allergy, Unknown, 05/04/16) PENICILLINS (Verified Allergy, Unknown, 05/04/16) Uncoded Allergies: KETOLIDES (Allergy, Unknown, 05/04/16) RED DYES (Allergy, Unknown, 05/04/16) TARTRAZINE (Allergy, Unknown, 05/04/16) YELLOW DYE-NON TARTRAZINE (Allergy, Unknown, 05/04/16) ROS Limited/Unobtainable: Yes Subjective 85 YO F admitted with GI hemorrhage. S/P transfusion 2 units Packed RBC. S/P Endoscopy on 05/06/16. Cover for Int Med-Dr Quezada. Objective Last Vital Signs Date Time Temp Pulse Resp B/P Pulse Ox O2 Delivery O2 Flow Rate FiO2 05/09/16 17:39 70 05/09/16 16:00 97.9 19 139/82 98 Room Air 05/09/16 08:00 2.0 Laboratory Tests Test 05/09/16 07:08 05/09/16 07:30 White Blood Count 7.6 K/UL (4.8-10.8) Red Blood Count 2.90 M/UL (4.20-5.40) L Hemoglobin 9.7 G/DL (12.0-16.0) L Hematocrit 29.2 % (37.0-47.0) L Mean Corpuscular Volume 101 FL (80-99) H Mean Corpuscular Hemoglobin 33.6 PG (27.0-31.0) H Mean Corpuscular Hemoglobin Concent 33.3 G/DL (32.0-36.0) Red Cell Distribution Width 17.9 % (11.6-14.8) H Platelet Count 152 K/UL (150-450) Mean Platelet Volume 6.7 FL (6.5-10.1) Neutrophils (%) (Auto) 60.5 % (45.0-75.0) Lymphocytes (%) (Auto) 27.1 % (20.0-45.0) Monocytes (%) (Auto) 8.7 % (1.0-10.0) Eosinophils (%) (Auto) 2.6 % (0.0-3.0) Basophils (%) (Auto) 1.2 % (0.0-2.0) Sodium Level 141 mEQ/L (135-145) Potassium Level 3.6 mEQ/L (3.4-4.9) Chloride Level 102 mEQ/L (98-107) Carbon Dioxide Level 23 mEQ/L (20-30) Anion Gap 16 (5-15) H Blood Urea Nitrogen 9 mg/dL (7-23) Creatinine 0.6 mg/dL (0.5-0.9) Estimat Glomerular Filtration Rate mL/min (>60) Glucose Level 97 mg/dL (74-106) Calcium Level 8.1 mg/dL (8.6-10.2) L Carcinoembryonic Antigen 5.4 ng/mL H Iron Level 28 ug/dL (37-145) L Total Iron Binding Capacity 241 ug/dL (250-400) L Percent Iron Saturation 12 % (15-50) L Unsaturated Iron Binding 213 ug/dL (112-346) Ferritin 74 ng/mL (13-150) Microbiology Date/Time Source Procedure Growth Status 05/07/16 10:45 Blood Blood Culture - Preliminary NO GROWTH AFTER 24 HOURS Resulted 05/07/16 10:30 Blood Blood Culture - Preliminary NO GROWTH AFTER 24 HOURS Resulted Intake and Output 05/08/16 05/09/16 19:00 07:00 Intake Total 635.000 ml 170 ml Output Total 350 ml 550 ml Balance 285.000 ml -380 ml Intake Oral 360 ml 170 ml IV Total 275.000 ml Output Urine Total 350 ml 550 ml Objective General Appearance: WD/WN, no apparent distress EENT: PERRL/EOMI, normal ENT inspection Neck: non-tender, normal alignment, supple Cardiovascular: normal peripheral pulses, no gallop/murmur, no JVD, tachycardia , irregularly irregular Respiratory/Chest: chest wall non-tender, lungs clear, normal breath sounds, no respiratory distress, no accessory muscle use Abdomen: soft, decreased bowel sounds, guarding, tender Extremities: normal range of motion Skin: normal pigmentation, warm/dry Assessment/Plan Problem List: (1) Generalized weakness (2) Vertigo (3) CAD (coronary artery disease) (4) HTN (hypertension) Assessment & Plan: Cont metoprolol (5) CHF (congestive heart failure) (6) Alzheimer's dementia (7) Aortic stenosis (8) Tachycardia Assessment & Plan: Due to Atrial fibrillation-see cardiology note. (9) UGIB (upper gastrointestinal bleed) Assessment & Plan: S/P Endoscopy on 05/06/16; Dx=Gastritis. See GI note. (10) Anemia Assessment & Plan: Due to GI bleed. S/P transfusion 2 units PRBC. See heme note. Continue IV venofer. (11) Atrial fibrillation Assessment & Plan: Rapid ventricular rate. See cardiology note-Dr Lawrence. (12) Coffee ground emesis (13) Bacteremia Assessment & Plan: Coag neg staph and diptheroids. See ID note. Continue vancomycin per ID. Await repeat culture results. (14) Gastritis Status: stable Assessment/Plan Discharge planning: group home fac JATINDER KNIGHT May 09, 2016 18:10
[2016-05-09 20:00] VITALS: BP 105/65
[2016-05-09] MEDS: Iron Sucrose 100 MG in NS 55 ML IVPB SCH (21:07)
[2016-05-10 00:35] VITALS: BP 123/65
[2016-05-10 04:05] VITALS: BP 121/73
[2016-05-10 07:58] LABS: BASOPHILS % (AUTO) 2.4 % (0.0-2.0); EOSINOPHILS % (AUTO) 2.9 % (0.0-3.0); LYMPHOCYTES % (AUTO) 25.7 % (20.0-45.0); MEAN CORPUSCULAR HEMOGLOBIN 33.2 PG (27.0-31.0); MEAN CORPUSCULAR HGB CONC 32.7 G/DL (32.0-36.0); MEAN CORPUSCULAR VOLUME 102 FL (80-99); MEAN PLATELET VOLUME 6.8 FL (6.5-10.1); MONOCYTES % (AUTO) 10.2 % (1.0-10.0); NEUTROPHILS % (AUTO) 58.8 % (45.0-75.0); PLATELET COUNT 153 K/UL (150-450); RED BLOOD COUNT 3.01 M/UL (4.20-5.40); RED CELL DISTRIBUTION WIDTH 17.8 % (11.6-14.8); WHITE BLOOD COUNT 6.8 K/UL (4.8-10.8)
[2016-05-10 08:00] VITALS: BP 121/66
[2016-05-10 08:09] LABS: INR 1.1 (0.9-1.1); PROTHROMBIN TIME 11.4 SEC (9.30-11.50)
[2016-05-10 08:14] LABS: ALANINE AMINOTRANSFERASE 11 U/L (3-33); ANION GAP 12 (5-15); ASPARTATE AMINO TRANSFERASE 19 U/L (5-40); CALCIUM 8.2 mg/dL (8.6-10.2); CARBON DIOXIDE 25 mEQ/L (20-30); CHLORIDE 106 mEQ/L (98-107); CREATININE 0.6 mg/dL (0.5-0.9); HEMOLYSIS 10; MAGNESIUM 1.9 mg/dL (1.7-2.5); PHOSPHORUS 3.9 mg/dL (2.5-4.8); POTASSIUM 3.8 mEQ/L (3.4-4.9); SODIUM 143 mEQ/L (135-145); TOTAL PROTEIN 5.8 g/dL (6.6-8.7)
[2016-05-10] MEDS: Pantoprazole Inj IVP SCH ×2 (09:16→22:00)
[2016-05-10] MEDS: Metoprolol 25mg tab ORAL SCH ×2 (09:16→21:00)
[2016-05-10] MEDS: Digoxin 0.125mg tab ORAL SCH (09:16)
[2016-05-10] MEDS: Memantine 10mg tab ORAL SCH ×2 (09:16→17:56)
--- NOTE | 2016-05-10 09:29 | Infectious Diseases Prog Note ---
Assessment/Plan Assessment/Plan ASSESSMENT: 85 y/o female with: // Polymicrobial ( CONS 1/4, diptheroids 1/4 ) bacteremia, m/l contaminants - repeat BCx NGTD - TTE(-) SBE // Leukocytosis, mild - resolved, afebrile ( GIB contributing ) // SP UGIB - Hgb stable - SP EGD 05/06: diffuse gastritis, path pending // FOBT(+) anemia SP PRBCs // h/o CAD / CHF, EF 55% // Aortic stenosis // Severe pulmonary HTN // Alzheimer's dementia // MRSA colonized // Macrolide, PCN allergies PLAN: - ok to DC off of ABX from ID standpoint ( 05/09 SP IV vancomycin d# 3 ) - f/u path - monitor CBC, temperatures - monitor BMP - transfuse prn Subjective Allergies: Coded Allergies: CLARITHROMYCIN (Verified Allergy, Unknown, 05/04/16) DEXTROMETHORPHAN (Verified Allergy, Unknown, 05/04/16) MACROLIDE ANTIBIOTICS (Verified Allergy, Unknown, 05/04/16) PENICILLINS (Verified Allergy, Unknown, 05/04/16) Uncoded Allergies: KETOLIDES (Allergy, Unknown, 05/04/16) RED DYES (Allergy, Unknown, 05/04/16) TARTRAZINE (Allergy, Unknown, 05/04/16) YELLOW DYE-NON TARTRAZINE (Allergy, Unknown, 05/04/16) Subjective remains afebrile repeat BCx NGTD DC planning Objective Vital Signs Last 24 Hour Vital Signs Date Time Temp Pulse Resp B/P Pulse Ox O2 Delivery O2 Flow Rate FiO2 05/10/16 09:16 120 05/10/16 09:16 120 121/66 05/10/16 08:00 96.7 120 17 121/66 97 Room Air 05/10/16 04:05 98.3 73 17 121/73 96 Room Air 05/10/16 04:00 72 05/10/16 01:30 78 05/10/16 00:35 97.9 70 18 123/65 94 Room Air 05/09/16 21:00 68 105/65 05/09/16 20:00 97.4 68 21 105/65 96 Room Air 05/09/16 17:39 70 05/09/16 16:00 90 05/09/16 16:00 97.9 70 19 139/82 98 Room Air 05/09/16 12:16 97.2 106 17 109/90 98 Nasal Cannula 05/09/16 12:00 69 Height (Feet): 4 Height (Inches): 10.00 Weight (Pounds): 148 General Appearance: no acute distress Respiratory/Chest: no respiratory distress Cardiovascular: normal rate, regular rhythm Abdomen: normal bowel sounds, soft, non tender, non distended Microbiology Date/Time Source Procedure Growth Status 05/07/16 10:45 Blood Blood Culture - Preliminary NO GROWTH AFTER 48 HOURS Resulted 05/07/16 10:30 Blood Blood Culture - Preliminary NO GROWTH AFTER 48 HOURS Resulted Laboratory Tests Test 05/10/16 07:18 White Blood Count 6.8 K/UL (4.8-10.8) Red Blood Count 3.01 M/UL (4.20-5.40) L Hemoglobin 10.0 G/DL (12.0-16.0) L Hematocrit 30.7 % (37.0-47.0) L Mean Corpuscular Volume 102 FL (80-99) H Mean Corpuscular Hemoglobin 33.2 PG (27.0-31.0) H Mean Corpuscular Hemoglobin Concent 32.7 G/DL (32.0-36.0) Red Cell Distribution Width 17.8 % (11.6-14.8) H Platelet Count 153 K/UL (150-450) Mean Platelet Volume 6.8 FL (6.5-10.1) Neutrophils (%) (Auto) 58.8 % (45.0-75.0) Lymphocytes (%) (Auto) 25.7 % (20.0-45.0) Monocytes (%) (Auto) 10.2 % (1.0-10.0) H Eosinophils (%) (Auto) 2.9 % (0.0-3.0) Basophils (%) (Auto) 2.4 % (0.0-2.0) H Prothrombin Time 11.4 SEC (9.30-11.50) Prothromb Time International Ratio 1.1 (0.9-1.1) Activated Partial Thromboplast Time 24 SEC (23-33) Sodium Level 143 mEQ/L (135-145) Potassium Level 3.8 mEQ/L (3.4-4.9) Chloride Level 106 mEQ/L (98-107) Carbon Dioxide Level 25 mEQ/L (20-30) Anion Gap 12 (5-15) Blood Urea Nitrogen 7 mg/dL (7-23) Creatinine 0.6 mg/dL (0.5-0.9) Estimat Glomerular Filtration Rate mL/min (>60) Glucose Level 86 mg/dL (74-106) Calcium Level 8.2 mg/dL (8.6-10.2) L Phosphorus Level 3.9 mg/dL (2.5-4.8) Magnesium Level 1.9 mg/dL (1.7-2.5) Total Bilirubin 0.4 mg/dL (0.0-1.2) Aspartate Amino Transf (AST/SGOT) 19 U/L (5-40) Alanine Aminotransferase (ALT/SGPT) 11 U/L (3-33) Alkaline Phosphatase 57 U/L (35-104) Total Protein 5.8 g/dL (6.6-8.7) L Albumin 2.9 g/dL (3.5-5.2) L Globulin 2.9 g/dL Albumin/Globulin Ratio 1.0 (1.0-2.7) Current Medications Medications (Trade) Dose Ordered Sig/Amy Route PRN Reason Start Time Stop Time Status Last Admin Dose Admin Acetaminophen (Tylenol) 650 mg Q6H PRN ORAL Mild Pain/Temp > 100.5 05/04/16 18:00 06/03/16 17:59 05/08/16 18:17 Digoxin (Lanoxin) 0.125 mg DAILY ORAL 05/09/16 17:00 06/08/16 16:59 05/10/16 09:16 Iron Sucrose/ Sodium Chloride (Venofer/Sodium Chloride) 60 ml @ 240 mls/hr BEDTIME IVPB 05/09/16 21:00 05/13/16 21:14 05/09/16 21:07 Lorazepam (Ativan) 0.5 mg BIDPRN PRN ORAL For Anxiety 05/04/16 08:30 05/11/16 08:29 05/09/16 09:10 Memantine (Namenda) 10 mg BID ORAL 05/04/16 09:00 06/03/16 08:59 05/10/16 09:16 Metoprolol Tartrate 25 mg 25 mg Q12HR ORAL 05/05/16 09:00 06/04/16 08:59 05/10/16 09:16 Ondansetron HCl (Zofran) 4 mg Q6H PRN IVP Nausea & Vomiting 05/04/16 08:30 06/03/16 08:29 Pantoprazole (Protonix) 40 mg EVERY 12 HOURS IVP 05/04/16 09:00 06/03/16 08:59 05/10/16 09:16 QUETA ZAMUDIO 21, 2017 09:29
--- NOTE | 2016-05-10 11:16 | General Progress Note ---
Assessment/Plan Problem List: (1) Coffee ground emesis ICD Codes: K92.0 - Hematemesis SNOMED: 19176064 (2) Hypoalbuminemia ICD Codes: E88.09 - Other disorders of plasma-protein metabolism, not elsewhere classified SNOMED: 282757233 (3) Leukocytosis ICD Codes: D72.829 - Elevated white blood cell count, unspecified SNOMED: 101425461, 615865558 (4) Atrial fibrillation ICD Codes: I48.91 - Unspecified atrial fibrillation SNOMED: 86558076 (5) UGIB (upper gastrointestinal bleed) ICD Codes: K92.2 - Gastrointestinal hemorrhage, unspecified SNOMED: 45228041 (6) Anemia ICD Codes: D64.9 - Anemia, unspecified SNOMED: 443614858 Qualifiers: Qualified Codes: D64.9 - Anemia, unspecified Assessment/Plan s/p EGD stable H&H fu labs tolerating diet repeat stool ob and plan colonoscopy if positive o/w as out patient Subjective ROS Limited/Unobtainable: Yes Allergies: Coded Allergies: CLARITHROMYCIN (Verified Allergy, Unknown, 05/04/16) DEXTROMETHORPHAN (Verified Allergy, Unknown, 05/04/16) MACROLIDE ANTIBIOTICS (Verified Allergy, Unknown, 05/04/16) PENICILLINS (Verified Allergy, Unknown, 05/04/16) Uncoded Allergies: KETOLIDES (Allergy, Unknown, 05/04/16) RED DYES (Allergy, Unknown, 05/04/16) TARTRAZINE (Allergy, Unknown, 05/04/16) YELLOW DYE-NON TARTRAZINE (Allergy, Unknown, 05/04/16) Subjective no event Objective Last 24 Hour Vital Signs Date Time Temp Pulse Resp B/P Pulse Ox O2 Delivery O2 Flow Rate FiO2 05/10/16 09:16 120 05/10/16 09:16 120 121/66 05/10/16 08:00 72 05/10/16 08:00 96.7 120 17 121/66 97 Room Air 05/10/16 04:05 98.3 73 17 121/73 96 Room Air 05/10/16 04:00 72 05/10/16 01:30 78 05/10/16 00:35 97.9 70 18 123/65 94 Room Air 05/09/16 21:00 68 105/65 05/09/16 20:00 97.4 68 21 105/65 96 Room Air 05/09/16 17:39 70 05/09/16 16:00 90 05/09/16 16:00 97.9 70 19 139/82 98 Room Air 05/09/16 12:16 97.2 106 17 109/90 98 Nasal Cannula 05/09/16 12:00 69 Intake and Output 05/09/16 05/10/16 19:00 07:00 Intake Total 823.708 ml 300 ml Output Total 430 ml 1400 ml Balance 393.708 ml -1100 ml Intake Oral 640 ml 300 ml IV Total 183.708 ml Output Urine Total 430 ml 1400 ml Laboratory Tests 05/10/16 07:18: White Blood Count 6.8, Red Blood Count 3.01L, Hemoglobin 10.0L, Hematocrit 30.7L , Mean Corpuscular Volume 102H, Mean Corpuscular Hemoglobin 33.2H, Mean Corpuscular Hemoglobin Concent 32.7, Red Cell Distribution Width 17.8H, Platelet Count 153, Mean Platelet Volume 6.8, Neutrophils (%) (Auto) 58.8, Lymphocytes (%) (Auto) 25.7, Monocytes (%) (Auto) 10.2H, Eosinophils (%) (Auto) 2.9, Basophils (%) (Auto) 2.4H, Prothrombin Time 11.4, Prothromb Time International Ratio 1.1, Activated Partial Thromboplast Time 24, Sodium Level 143, Potassium Level 3.8, Chloride Level 106, Carbon Dioxide Level 25, Anion Gap 12, Blood Urea Nitrogen 7, Creatinine 0.6, Estimat Glomerular Filtration Rate , Glucose Level 86, Calcium Level 8.2L, Phosphorus Level 3.9, Magnesium Level 1.9, Total Bilirubin 0.4, Aspartate Amino Transf (AST/SGOT) 19, Alanine Aminotransferase (ALT/SGPT) 11, Alkaline Phosphatase 57, Total Protein 5.8L, Albumin 2.9L, Globulin 2.9, Albumin/Globulin Ratio 1.0 Height (Feet): 4 Height (Inches): 10.00 Weight (Pounds): 148 General Appearance: alert EENT: normal ENT inspection Neck: supple Cardiovascular: normal rate Respiratory/Chest: decreased breath sounds Abdomen: normal bowel sounds, non tender, soft Extremities: non-tender HERRERA ANTUNEZ May 10, 2016 11:16
[2016-05-10 12:00] VITALS: BP 132/62
--- NOTE | 2016-05-10 15:16 | Cardiac Electrophysiology PN ---
Assessment/Plan Status Narrative Technically difficult study due to poor acoustic windows. Study quality precludes accurate assessment of regional wall motion. Normal left ventricular chamber size, systolic function and wall motion. Left ventricular ejection fraction estimated to be 55 %. No evidence of ventricular hypertrophy. No evidence of pericardial fat or effusion. SEVERE left atrial enlargement. Right cardiac chamber sizes are within normal limits. Aortic valve calcification with decreased cusp excursion c/w aortic stenosis. Mildly thickened mitral valve leaflets with normal excursion. Mild mitral annulus and aortic root calcification. Pulmonic valve not well visualized. Normal tricuspid valve structure. A color flow and spectral Doppler study was performed and revealed: No aortic regurgitation. Peak aortic valve gradient of 41 mmHg and a mean of 22 mmHg. Aortic valve area 0.6 cm2 calculated by continuity equation. Moderate to severe mitral regurgitation. Left ventricular diastolic function could not be determined due to A-Fib. Moderate tricuspid regurgitation. Tricuspid systolic velocities suggests peak right ventricular systolic pressure of 77 mmHg, consistent with severe pulmonary hypertension. Trace pulmonic regurgitation present. Assessment/Plan 1. Atrial fibrillation/flutter with rapid ventricular rates. No congestive heart failure or acute coronary syndrome. On metoprolol 25 bid and Digoxin 0.125 mg daily.Not a candidate for cardioversion given the persistent atrial fibrillation and is not a candidate for anticoagulation due to gastrointestinal bleeding. Dig level 1.7 on 05/07/16. 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 2. Severe Aortic stenosis CALVIN 0.6. 3. Severe pulmonary HTN 4. GI bleed, s/p PRBC and EGD that showed gastritis. On Venofer. DW RN DW patients [facility] Dr. Xavi Cano Subjective Subjective Heart rate better in fib 68. Comfortable RN at bedside. Objective Last 24 Hour Vital Signs Date Time Temp Pulse Resp B/P Pulse Ox O2 Delivery O2 Flow Rate FiO2 05/10/16 12:00 96.8 99 17 132/62 96 Room Air 05/10/16 12:00 67 05/10/16 09:16 120 05/10/16 09:16 120 121/66 05/10/16 08:00 72 05/10/16 08:00 96.7 120 17 121/66 97 Room Air 05/10/16 04:05 98.3 73 17 121/73 96 Room Air 05/10/16 04:00 72 05/10/16 01:30 78 05/10/16 00:35 97.9 70 18 123/65 94 Room Air 05/09/16 21:00 68 105/65 05/09/16 20:00 97.4 68 21 105/65 96 Room Air 05/09/16 17:39 70 05/09/16 16:00 90 05/09/16 16:00 97.9 70 19 139/82 98 Room Air Intake and Output 05/09/16 05/10/16 19:00 07:00 Intake Total 823.708 ml 300 ml Output Total 430 ml 1400 ml Balance 393.708 ml -1100 ml Intake Oral 640 ml 300 ml IV Total 183.708 ml Output Urine Total 430 ml 1400 ml Laboratory Tests Test 05/10/16 07:18 05/10/16 11:25 White Blood Count 6.8 K/UL (4.8-10.8) Red Blood Count 3.01 M/UL (4.20-5.40) L Hemoglobin 10.0 G/DL (12.0-16.0) L Hematocrit 30.7 % (37.0-47.0) L Mean Corpuscular Volume 102 FL (80-99) H Mean Corpuscular Hemoglobin 33.2 PG (27.0-31.0) H Mean Corpuscular Hemoglobin Concent 32.7 G/DL (32.0-36.0) Red Cell Distribution Width 17.8 % (11.6-14.8) H Platelet Count 153 K/UL (150-450) Mean Platelet Volume 6.8 FL (6.5-10.1) Neutrophils (%) (Auto) 58.8 % (45.0-75.0) Lymphocytes (%) (Auto) 25.7 % (20.0-45.0) Monocytes (%) (Auto) 10.2 % (1.0-10.0) H Eosinophils (%) (Auto) 2.9 % (0.0-3.0) Basophils (%) (Auto) 2.4 % (0.0-2.0) H Prothrombin Time 11.4 SEC (9.30-11.50) Prothromb Time International Ratio 1.1 (0.9-1.1) Activated Partial Thromboplast Time 24 SEC (23-33) Sodium Level 143 mEQ/L (135-145) Potassium Level 3.8 mEQ/L (3.4-4.9) Chloride Level 106 mEQ/L (98-107) Carbon Dioxide Level 25 mEQ/L (20-30) Anion Gap 12 (5-15) Blood Urea Nitrogen 7 mg/dL (7-23) Creatinine 0.6 mg/dL (0.5-0.9) Estimat Glomerular Filtration Rate mL/min (>60) Glucose Level 86 mg/dL (74-106) Calcium Level 8.2 mg/dL (8.6-10.2) L Phosphorus Level 3.9 mg/dL (2.5-4.8) Magnesium Level 1.9 mg/dL (1.7-2.5) Total Bilirubin 0.4 mg/dL (0.0-1.2) Aspartate Amino Transf (AST/SGOT) 19 U/L (5-40) Alanine Aminotransferase (ALT/SGPT) 11 U/L (3-33) Alkaline Phosphatase 57 U/L (35-104) Total Protein 5.8 g/dL (6.6-8.7) L Albumin 2.9 g/dL (3.5-5.2) L Globulin 2.9 g/dL Albumin/Globulin Ratio 1.0 (1.0-2.7) Vancomycin Level Trough 7.3 ug/mL (5.0-12.0) Objective HEENT: No JVD LUNGS: Clear to auscultation bilaterally. HEART: Irregular S1 and S2 with a 2/6 systolic ejection murmur aortic area ABDOMEN: Soft and nontender. No palpable mass. EXTREMITIES: A 1+ pedal and ankle edema bilaterally. CLAIRE KEY May 10, 2016 15:16
[2016-05-10 16:00] VITALS: BP 131/75
--- NOTE | 2016-05-10 16:43 | General Progress Note ---
Assessment/Plan Assessment/Plan ASSESSMENT: 1. Anemia secondary to coffee-ground emesis and gastrointestinal bleed. Planning for scope per GI 2. Decreased hemoglobin and hematocrit r/o GI bleed being evaluated by GI. egd with gastritis (path pending) 3. Anemia secondary to iron deficiency - is on iv iron 4. Leukocytosis due to reactive process, better 5. Hypertension now improved 6. Atrial fibrillation with rapid ventricular response 7. Coagulopathy secondary potential malnutrition versus vitamin K deficiency. RECOMMENDATIONS: 1. Continue iv iron 2. Hemoglobin goal>7. 3. Platelets goal less than 20k 4. If occult +, then colo 5. Imaging has been reviewed 6. Occult blood is pending. 7. DVT prophylaxis with SCDs. 8. GI prophylaxis with pantoprazole 9. Appreciate GI and cards recs 10. staff Thank you, Quique Vanegas MD Subjective Constitutional: Reports: no symptoms HEENT: Reports: no symptoms Cardiovascular: Reports: no symptoms Respiratory: Reports: no symptoms Gastrointestinal/Abdominal: Reports: no symptoms, poor appetite Genitourinary: Reports: no symptoms Neurologic/Psychiatric: Reports: no symptoms Endocrine: Reports: unexplained weight loss Hematologic/Lymphatic: Reports: anemia Allergies: Coded Allergies: CLARITHROMYCIN (Verified Allergy, Unknown, 05/04/16) DEXTROMETHORPHAN (Verified Allergy, Unknown, 05/04/16) MACROLIDE ANTIBIOTICS (Verified Allergy, Unknown, 05/04/16) PENICILLINS (Verified Allergy, Unknown, 05/04/16) TELITHROMYCIN (Unverified Adverse Reaction, Unknown, 05/10/16) Uncoded Allergies: KETOLIDES (Allergy, Unknown, 05/04/16) RED DYES (Allergy, Unknown, 05/04/16) TARTRAZINE (Allergy, Unknown, 05/04/16) YELLOW DYE-NON TARTRAZINE (Allergy, Unknown, 05/04/16) Subjective no fevers, no chills, h.h is stable Objective Last 24 Hour Vital Signs Date Time Temp Pulse Resp B/P Pulse Ox O2 Delivery O2 Flow Rate FiO2 05/10/16 12:00 96.8 99 17 132/62 96 Room Air 05/10/16 12:00 67 05/10/16 09:16 120 05/10/16 09:16 120 121/66 05/10/16 08:00 72 05/10/16 08:00 96.7 120 17 121/66 97 Room Air 05/10/16 04:05 98.3 73 17 121/73 96 Room Air 05/10/16 04:00 72 05/10/16 01:30 78 05/10/16 00:35 97.9 70 18 123/65 94 Room Air 05/09/16 21:00 68 105/65 05/09/16 20:00 97.4 68 21 105/65 96 Room Air 05/09/16 17:39 70 Intake and Output 05/09/16 05/10/16 19:00 07:00 Intake Total 823.708 ml 300 ml Output Total 430 ml 1400 ml Balance 393.708 ml -1100 ml Intake Oral 640 ml 300 ml IV Total 183.708 ml Output Urine Total 430 ml 1400 ml Laboratory Tests 05/10/16 07:18: White Blood Count 6.8, Red Blood Count 3.01L, Hemoglobin 10.0L, Hematocrit 30.7L , Mean Corpuscular Volume 102H, Mean Corpuscular Hemoglobin 33.2H, Mean Corpuscular Hemoglobin Concent 32.7, Red Cell Distribution Width 17.8H, Platelet Count 153, Mean Platelet Volume 6.8, Neutrophils (%) (Auto) 58.8, Lymphocytes (%) (Auto) 25.7, Monocytes (%) (Auto) 10.2H, Eosinophils (%) (Auto) 2.9, Basophils (%) (Auto) 2.4H, Prothrombin Time 11.4, Prothromb Time International Ratio 1.1, Activated Partial Thromboplast Time 24, Sodium Level 143, Potassium Level 3.8, Chloride Level 106, Carbon Dioxide Level 25, Anion Gap 12, Blood Urea Nitrogen 7, Creatinine 0.6, Estimat Glomerular Filtration Rate , Glucose Level 86, Calcium Level 8.2L, Phosphorus Level 3.9, Magnesium Level 1.9, Total Bilirubin 0.4, Aspartate Amino Transf (AST/SGOT) 19, Alanine Aminotransferase (ALT/SGPT) 11, Alkaline Phosphatase 57, Total Protein 5.8L, Albumin 2.9L, Globulin 2.9, Albumin/Globulin Ratio 1.0 05/10/16 11:25: Vancomycin Level Trough 7.3 Height (Feet): 4 Height (Inches): 10.00 Weight (Pounds): 148 General Appearance: no apparent distress EENT: TMs normal Neck: supple Cardiovascular: regular rhythm Respiratory/Chest: normal breath sounds Abdomen: soft Extremities: non-tender Neurologic: alert Skin: warm/dry Quique Vanegas May 10, 2016 16:43
--- NOTE | 2016-05-10 17:34 | Internal Med Progress Note ---
Subjective Date of Service: May 10, 2016 Physician Name Shanice Knight Attending Physician Galileo Quezada MD Current Medications Medications (Trade) Dose Ordered Sig/Amy Route PRN Reason Start Time Stop Time Status Last Admin Dose Admin Acetaminophen (Tylenol) 650 mg Q6H PRN ORAL Mild Pain/Temp > 100.5 05/04/16 18:00 06/03/16 17:59 05/08/16 18:17 Digoxin (Lanoxin) 0.125 mg DAILY ORAL 05/09/16 17:00 06/08/16 16:59 05/10/16 09:16 Iron Sucrose/ Sodium Chloride (Venofer/Sodium Chloride) 60 ml @ 240 mls/hr BEDTIME IVPB 05/09/16 21:00 05/13/16 21:14 05/09/16 21:07 Lorazepam (Ativan) 0.5 mg BIDPRN PRN ORAL For Anxiety 05/04/16 08:30 05/11/16 08:29 05/09/16 09:10 Memantine (Namenda) 10 mg BID ORAL 05/04/16 09:00 06/03/16 08:59 05/10/16 09:16 Metoprolol Tartrate 25 mg 25 mg Q12HR ORAL 05/05/16 09:00 06/04/16 08:59 05/10/16 09:16 Ondansetron HCl (Zofran) 4 mg Q6H PRN IVP Nausea & Vomiting 05/04/16 08:30 06/03/16 08:29 Pantoprazole (Protonix) 40 mg EVERY 12 HOURS IVP 05/04/16 09:00 06/03/16 08:59 05/10/16 09:16 Polyethylene Glycol (Miralax) 17 gm BEDTIME ORAL 05/10/16 21:00 06/09/16 20:59 Allergies: Coded Allergies: CLARITHROMYCIN (Verified Allergy, Unknown, 05/04/16) DEXTROMETHORPHAN (Verified Allergy, Unknown, 05/04/16) MACROLIDE ANTIBIOTICS (Verified Allergy, Unknown, 05/04/16) PENICILLINS (Verified Allergy, Unknown, 05/04/16) TELITHROMYCIN (Unverified Adverse Reaction, Unknown, 05/10/16) Uncoded Allergies: KETOLIDES (Allergy, Unknown, 05/04/16) RED DYES (Allergy, Unknown, 05/04/16) TARTRAZINE (Allergy, Unknown, 05/04/16) YELLOW DYE-NON TARTRAZINE (Allergy, Unknown, 05/04/16) ROS Limited/Unobtainable: No Constitutional: Reports: no symptoms HEENT: Reports: no symptoms Cardiovascular: Reports: no symptoms Respiratory: Reports: no symptoms Gastrointestinal/Abdominal: Reports: no symptoms Genitourinary: Reports: no symptoms Neurologic/Psychiatric: Reports: no symptoms Subjective 85 YO F admitted with GI hemorrhage. S/P transfusion 2 units Packed RBC. S/P Endoscopy on 05/06/16. Cover for Int Med-Dr Quezada. Objective Last Vital Signs Date Time Temp Pulse Resp B/P Pulse Ox O2 Delivery O2 Flow Rate FiO2 05/10/16 12:00 96.8 99 17 132/62 96 Room Air 05/09/16 08:00 2.0 Laboratory Tests Test 05/10/16 07:18 05/10/16 11:25 White Blood Count 6.8 K/UL (4.8-10.8) Red Blood Count 3.01 M/UL (4.20-5.40) L Hemoglobin 10.0 G/DL (12.0-16.0) L Hematocrit 30.7 % (37.0-47.0) L Mean Corpuscular Volume 102 FL (80-99) H Mean Corpuscular Hemoglobin 33.2 PG (27.0-31.0) H Mean Corpuscular Hemoglobin Concent 32.7 G/DL (32.0-36.0) Red Cell Distribution Width 17.8 % (11.6-14.8) H Platelet Count 153 K/UL (150-450) Mean Platelet Volume 6.8 FL (6.5-10.1) Neutrophils (%) (Auto) 58.8 % (45.0-75.0) Lymphocytes (%) (Auto) 25.7 % (20.0-45.0) Monocytes (%) (Auto) 10.2 % (1.0-10.0) H Eosinophils (%) (Auto) 2.9 % (0.0-3.0) Basophils (%) (Auto) 2.4 % (0.0-2.0) H Prothrombin Time 11.4 SEC (9.30-11.50) Prothromb Time International Ratio 1.1 (0.9-1.1) Activated Partial Thromboplast Time 24 SEC (23-33) Sodium Level 143 mEQ/L (135-145) Potassium Level 3.8 mEQ/L (3.4-4.9) Chloride Level 106 mEQ/L (98-107) Carbon Dioxide Level 25 mEQ/L (20-30) Anion Gap 12 (5-15) Blood Urea Nitrogen 7 mg/dL (7-23) Creatinine 0.6 mg/dL (0.5-0.9) Estimat Glomerular Filtration Rate mL/min (>60) Glucose Level 86 mg/dL (74-106) Calcium Level 8.2 mg/dL (8.6-10.2) L Phosphorus Level 3.9 mg/dL (2.5-4.8) Magnesium Level 1.9 mg/dL (1.7-2.5) Total Bilirubin 0.4 mg/dL (0.0-1.2) Aspartate Amino Transf (AST/SGOT) 19 U/L (5-40) Alanine Aminotransferase (ALT/SGPT) 11 U/L (3-33) Alkaline Phosphatase 57 U/L (35-104) Total Protein 5.8 g/dL (6.6-8.7) L Albumin 2.9 g/dL (3.5-5.2) L Globulin 2.9 g/dL Albumin/Globulin Ratio 1.0 (1.0-2.7) Vancomycin Level Trough 7.3 ug/mL (5.0-12.0) Intake and Output 05/09/16 05/10/16 19:00 07:00 Intake Total 823.708 ml 300 ml Output Total 430 ml 1400 ml Balance 393.708 ml -1100 ml Intake Oral 640 ml 300 ml IV Total 183.708 ml Output Urine Total 430 ml 1400 ml Objective General Appearance: WD/WN, no apparent distress EENT: PERRL/EOMI, normal ENT inspection Neck: non-tender, normal alignment, supple Cardiovascular: normal peripheral pulses, no gallop/murmur, no JVD, tachycardia , irregularly irregular Respiratory/Chest: chest wall non-tender, lungs clear, normal breath sounds, no respiratory distress, no accessory muscle use Abdomen: soft, decreased bowel sounds, guarding, tender Extremities: normal range of motion Skin: normal pigmentation, warm/dry Assessment/Plan Problem List: (1) Generalized weakness (2) Vertigo (3) CAD (coronary artery disease) (4) HTN (hypertension) Assessment & Plan: Cont metoprolol (5) CHF (congestive heart failure) (6) Alzheimer's dementia (7) Aortic stenosis (8) Tachycardia Assessment & Plan: Tachy/stephy syndrome-see cardiology note. Not a candidate for ablation (9) UGIB (upper gastrointestinal bleed) Assessment & Plan: S/P Endoscopy on 05/06/16; Dx=Gastritis. See GI note. (10) Anemia Assessment & Plan: Due to GI bleed. S/P transfusion 2 units PRBC. See heme note. Continue IV venofer. (11) Atrial fibrillation Assessment & Plan: Rapid ventricular rate. See cardiology note-Dr Lawrence. (12) Coffee ground emesis (13) Bacteremia Assessment & Plan: Coag neg staph and diptheroids. See ID note. D/C vancomycin per ID. (14) Gastritis Status: stable Assessment/Plan Discharge planning: jail fac SHANICE KNIGHT May 10, 2016 17:34
[2016-05-10 20:00] VITALS: BP 106/58
[2016-05-10] MEDS: Miralax 17gm pkt ORAL SCH (21:00)
--- NOTE | 2016-05-10 21:43 | Pulmonology Progress Note ---
Assessment/Plan Problems: (1) UGIB (upper gastrointestinal bleed) (2) Atrial fibrillation (3) Anemia Assessment/Plan h/h stable s/p prbc cardiology f/u med/surg dc planning in process Subjective ROS Limited/Unobtainable: No Allergies: Coded Allergies: CLARITHROMYCIN (Verified Allergy, Unknown, 05/04/16) DEXTROMETHORPHAN (Verified Allergy, Unknown, 05/04/16) MACROLIDE ANTIBIOTICS (Verified Allergy, Unknown, 05/04/16) PENICILLINS (Verified Allergy, Unknown, 05/04/16) TELITHROMYCIN (Unverified Adverse Reaction, Unknown, 05/10/16) Uncoded Allergies: KETOLIDES (Allergy, Unknown, 05/04/16) RED DYES (Allergy, Unknown, 05/04/16) TARTRAZINE (Allergy, Unknown, 05/04/16) YELLOW DYE-NON TARTRAZINE (Allergy, Unknown, 05/04/16) Objective Last 24 Hour Vital Signs Date Time Temp Pulse Resp B/P Pulse Ox O2 Delivery O2 Flow Rate FiO2 05/10/16 20:00 97.3 60 18 106/58 97 Room Air 05/10/16 16:00 68 05/10/16 16:00 96.6 68 18 131/75 97 Room Air 05/10/16 12:00 96.8 99 17 132/62 96 Room Air 05/10/16 12:00 67 05/10/16 09:16 120 05/10/16 09:16 120 121/66 05/10/16 08:00 72 05/10/16 08:00 96.7 120 17 121/66 97 Room Air 05/10/16 04:05 98.3 73 17 121/73 96 Room Air 05/10/16 04:00 72 05/10/16 01:30 78 05/10/16 00:35 97.9 70 18 123/65 94 Room Air Intake and Output 05/09/16 05/10/16 19:00 07:00 Intake Total 823.708 ml 300 ml Output Total 430 ml 1400 ml Balance 393.708 ml -1100 ml Intake Oral 640 ml 300 ml IV Total 183.708 ml Output Urine Total 430 ml 1400 ml Objective General Appearance: WD/WN HEENT: normocephalic, atraumatic Respiratory/Chest: chest wall non-tender, lungs clear Breasts: no masses Cardiovascular: normal peripheral pulses, normal rate, regular rhythm Abdomen: normal bowel sounds, soft, non tender, no organomegaly, non distended Genitourinary: normal external genitalia Skin: no rash, no lesions Neurologic/Psychiatric: face worker II-XII grossly normal Lymphatic: no neck adenopathy Laboratory Tests 05/10/16 07:18: White Blood Count 6.8, Red Blood Count 3.01L, Hemoglobin 10.0L, Hematocrit 30.7L , Mean Corpuscular Volume 102H, Mean Corpuscular Hemoglobin 33.2H, Mean Corpuscular Hemoglobin Concent 32.7, Red Cell Distribution Width 17.8H, Platelet Count 153, Mean Platelet Volume 6.8, Neutrophils (%) (Auto) 58.8, Lymphocytes (%) (Auto) 25.7, Monocytes (%) (Auto) 10.2H, Eosinophils (%) (Auto) 2.9, Basophils (%) (Auto) 2.4H, Prothrombin Time 11.4, Prothromb Time International Ratio 1.1, Activated Partial Thromboplast Time 24, Sodium Level 143, Potassium Level 3.8, Chloride Level 106, Carbon Dioxide Level 25, Anion Gap 12, Blood Urea Nitrogen 7, Creatinine 0.6, Estimat Glomerular Filtration Rate , Glucose Level 86, Calcium Level 8.2L, Phosphorus Level 3.9, Magnesium Level 1.9, Total Bilirubin 0.4, Aspartate Amino Transf (AST/SGOT) 19, Alanine Aminotransferase (ALT/SGPT) 11, Alkaline Phosphatase 57, Total Protein 5.8L, Albumin 2.9L, Globulin 2.9, Albumin/Globulin Ratio 1.0 05/10/16 11:25: Vancomycin Level Trough 7.3 Current Medications Medications (Trade) Dose Ordered Sig/Amy Route PRN Reason Start Time Stop Time Status Last Admin Dose Admin Acetaminophen (Tylenol) 650 mg Q6H PRN ORAL Mild Pain/Temp > 100.5 05/04/16 18:00 06/03/16 17:59 05/10/16 17:56 Digoxin (Lanoxin) 0.125 mg DAILY ORAL 05/09/16 17:00 06/08/16 16:59 05/10/16 09:16 Iron Sucrose/ Sodium Chloride (Venofer/Sodium Chloride) 60 ml @ 240 mls/hr BEDTIME IVPB 05/09/16 21:00 05/13/16 21:14 05/09/16 21:07 Lorazepam (Ativan) 0.5 mg BIDPRN PRN ORAL For Anxiety 05/04/16 08:30 05/11/16 08:29 05/09/16 09:10 Memantine (Namenda) 10 mg BID ORAL 05/04/16 09:00 06/03/16 08:59 05/10/16 17:56 Metoprolol Tartrate 25 mg 25 mg Q12HR ORAL 05/05/16 09:00 06/04/16 08:59 05/10/16 09:16 Ondansetron HCl (Zofran) 4 mg Q6H PRN IVP Nausea & Vomiting 05/04/16 08:30 06/03/16 08:29 Pantoprazole (Protonix) 40 mg EVERY 12 HOURS IVP 05/04/16 09:00 06/03/16 08:59 05/10/16 09:16 Polyethylene Glycol (Miralax) 17 gm BEDTIME ORAL 05/10/16 21:00 06/09/16 20:59 NAPOLEON JI May 10, 2016 21:43
[2016-05-10] MEDS: Iron Sucrose 100 MG in NS 55 ML IVPB SCH (22:00)
--- NOTE | 2016-05-10 23:30 | Diagnostic Imaging Report ---
APPROVED REPORT CPT Code: 75827 Present Symptoms Lower Extremity Edema: Bilateral Comments: Pain Technically difficult study due to edema (mid calf area). BILATERAL: Imaging reveals a patent deep venous system bilaterally. There is no evidence of thrombus within the femoral, popliteal or tibial segments. The greater saphenous veins are also within normal limits. Doppler indicates normal spontaneous flow within these segments.
[2016-05-11 00:15] VITALS: BP 118/72
[2016-05-11 04:10] VITALS: BP 104/51
[2016-05-11 08:00] VITALS: BP 120/80
[2016-05-11 08:04] LABS: BASOPHILS % (AUTO) 1.5 % (0.0-2.0); EOSINOPHILS % (AUTO) 2.2 % (0.0-3.0); LYMPHOCYTES % (AUTO) 26.6 % (20.0-45.0); MEAN CORPUSCULAR HEMOGLOBIN 33.3 PG (27.0-31.0); MEAN CORPUSCULAR HGB CONC 32.7 G/DL (32.0-36.0); MEAN CORPUSCULAR VOLUME 102 FL (80-99); MEAN PLATELET VOLUME 6.8 FL (6.5-10.1); MONOCYTES % (AUTO) 8.8 % (1.0-10.0); NEUTROPHILS % (AUTO) 60.9 % (45.0-75.0); PLATELET COUNT 159 K/UL (150-450); RED BLOOD COUNT 2.91 M/UL (4.20-5.40); RED CELL DISTRIBUTION WIDTH 17.9 % (11.6-14.8)
[2016-05-11 08:07] LABS: ANION GAP 15 (5-15); CALCIUM 8.5 mg/dL (8.6-10.2); CARBON DIOXIDE 25 mEQ/L (20-30); CHLORIDE 103 mEQ/L (98-107); CREATININE 0.7 mg/dL (0.5-0.9); HEMOLYSIS 4; POTASSIUM 3.6 mEQ/L (3.4-4.9); SODIUM 143 mEQ/L (135-145)
--- NOTE | 2016-05-11 09:01 | Infectious Diseases Prog Note ---
Assessment/Plan Assessment/Plan ASSESSMENT: 85 y/o female with: // Polymicrobial ( CONS 1/4, diptheroids 1/4 ) bacteremia, m/l contaminants - repeat BCx NGTD - TTE(-) SBE // Leukocytosis, mild - resolved, afebrile ( GIB contributing ) // SP UGIB - Hgb stable - SP EGD 05/06: diffuse gastritis, path: chronic H.pylori(-) gastritis. no malignancy // FOBT(+) anemia SP PRBCs // h/o CAD / CHF, EF 55% // Aortic stenosis // Severe pulmonary HTN // Alzheimer's dementia // MRSA colonized // Macrolide, PCN allergies PLAN: - ok to DC off of ABX from ID standpoint ( 05/09 SP IV vancomycin d# 3 ) - monitor CBC, temperatures - monitor BMP - transfuse prn Subjective Allergies: Coded Allergies: CLARITHROMYCIN (Verified Allergy, Unknown, 05/04/16) DEXTROMETHORPHAN (Verified Allergy, Unknown, 05/04/16) MACROLIDE ANTIBIOTICS (Verified Allergy, Unknown, 05/04/16) PENICILLINS (Verified Allergy, Unknown, 05/04/16) TELITHROMYCIN (Unverified Adverse Reaction, Unknown, 05/10/16) Uncoded Allergies: KETOLIDES (Allergy, Unknown, 05/04/16) RED DYES (Allergy, Unknown, 05/04/16) TARTRAZINE (Allergy, Unknown, 05/04/16) YELLOW DYE-NON TARTRAZINE (Allergy, Unknown, 05/04/16) Subjective remains afebrile repeat BCx NGTD DC planning Objective Vital Signs Last 24 Hour Vital Signs Date Time Temp Pulse Resp B/P Pulse Ox O2 Delivery O2 Flow Rate FiO2 05/11/16 04:10 98.6 89 17 104/51 95 Room Air 05/11/16 04:00 74 05/11/16 00:15 98.4 86 18 118/72 95 Room Air 05/11/16 00:00 63 05/10/16 21:00 60 106/58 05/10/16 20:00 97.3 60 18 106/58 97 Room Air 05/10/16 20:00 69 05/10/16 16:00 68 05/10/16 16:00 96.6 68 18 131/75 97 Room Air 05/10/16 12:00 96.8 99 17 132/62 96 Room Air 05/10/16 12:00 67 05/10/16 09:16 120 05/10/16 09:16 120 121/66 Height (Feet): 4 Height (Inches): 10.00 Weight (Pounds): 148 General Appearance: no acute distress Respiratory/Chest: no respiratory distress Cardiovascular: normal rate, regular rhythm Abdomen: normal bowel sounds, soft, non tender, non distended Laboratory Tests Test 05/10/16 11:25 05/11/16 06:42 Vancomycin Level Trough 7.3 ug/mL (5.0-12.0) White Blood Count 8.0 K/UL (4.8-10.8) Red Blood Count 2.91 M/UL (4.20-5.40) L Hemoglobin 9.7 G/DL (12.0-16.0) L Hematocrit 29.7 % (37.0-47.0) L Mean Corpuscular Volume 102 FL (80-99) H Mean Corpuscular Hemoglobin 33.3 PG (27.0-31.0) H Mean Corpuscular Hemoglobin Concent 32.7 G/DL (32.0-36.0) Red Cell Distribution Width 17.9 % (11.6-14.8) H Platelet Count 159 K/UL (150-450) Mean Platelet Volume 6.8 FL (6.5-10.1) Neutrophils (%) (Auto) 60.9 % (45.0-75.0) Lymphocytes (%) (Auto) 26.6 % (20.0-45.0) Monocytes (%) (Auto) 8.8 % (1.0-10.0) Eosinophils (%) (Auto) 2.2 % (0.0-3.0) Basophils (%) (Auto) 1.5 % (0.0-2.0) Sodium Level 143 mEQ/L (135-145) Potassium Level 3.6 mEQ/L (3.4-4.9) Chloride Level 103 mEQ/L (98-107) Carbon Dioxide Level 25 mEQ/L (20-30) Anion Gap 15 (5-15) Blood Urea Nitrogen 11 mg/dL (7-23) Creatinine 0.7 mg/dL (0.5-0.9) Estimat Glomerular Filtration Rate mL/min (>60) Glucose Level 82 mg/dL (74-106) Calcium Level 8.5 mg/dL (8.6-10.2) L Current Medications Medications (Trade) Dose Ordered Sig/Amy Route PRN Reason Start Time Stop Time Status Last Admin Dose Admin Acetaminophen (Tylenol) 650 mg Q6H PRN ORAL Mild Pain/Temp > 100.5 05/04/16 18:00 06/03/16 17:59 05/10/16 17:56 Digoxin (Lanoxin) 0.125 mg DAILY ORAL 05/09/16 17:00 06/08/16 16:59 05/10/16 09:16 Iron Sucrose/ Sodium Chloride (Venofer/Sodium Chloride) 60 ml @ 240 mls/hr BEDTIME IVPB 05/09/16 21:00 05/13/16 21:14 05/10/16 22:00 Memantine (Namenda) 10 mg BID ORAL 05/04/16 09:00 06/03/16 08:59 05/10/16 17:56 Metoprolol Tartrate 25 mg 25 mg Q12HR ORAL 05/05/16 09:00 06/04/16 08:59 05/10/16 09:16 Ondansetron HCl (Zofran) 4 mg Q6H PRN IVP Nausea & Vomiting 05/04/16 08:30 06/03/16 08:29 Pantoprazole (Protonix) 40 mg EVERY 12 HOURS IVP 05/04/16 09:00 06/03/16 08:59 05/10/16 22:00 Polyethylene Glycol (Miralax) 17 gm BEDTIME ORAL 05/10/16 21:00 06/09/16 20:59 QUETA ZAMUDIO 22, 2017 09:01
[2016-05-11] MEDS: Memantine 10mg tab ORAL SCH ×2 (09:02→18:15)
[2016-05-11] MEDS: Metoprolol 25mg tab ORAL SCH ×2 (09:03→22:51)
[2016-05-11] MEDS: Pantoprazole Inj IVP SCH ×2 (09:04→22:52)
[2016-05-11] MEDS: Digoxin 0.125mg tab ORAL SCH (09:04)
--- NOTE | 2016-05-11 09:47 | General Progress Note ---
Assessment/Plan Problem List: (1) Coffee ground emesis ICD Codes: K92.0 - Hematemesis SNOMED: 77598193 (2) Hypoalbuminemia ICD Codes: E88.09 - Other disorders of plasma-protein metabolism, not elsewhere classified SNOMED: 920730698 (3) Leukocytosis ICD Codes: D72.829 - Elevated white blood cell count, unspecified SNOMED: 779549955, 156248030 (4) Atrial fibrillation ICD Codes: I48.91 - Unspecified atrial fibrillation SNOMED: 80275283 (5) UGIB (upper gastrointestinal bleed) ICD Codes: K92.2 - Gastrointestinal hemorrhage, unspecified SNOMED: 77322819 (6) Anemia ICD Codes: D64.9 - Anemia, unspecified SNOMED: 731659415 Qualifiers: Qualified Codes: D64.9 - Anemia, unspecified Assessment/Plan s/p EGD stable H&H fu labs tolerating diet repeat stool ob and plan colonoscopy if positive o/w as out patient Subjective ROS Limited/Unobtainable: Yes Allergies: Coded Allergies: CLARITHROMYCIN (Verified Allergy, Unknown, 05/04/16) DEXTROMETHORPHAN (Verified Allergy, Unknown, 05/04/16) MACROLIDE ANTIBIOTICS (Verified Allergy, Unknown, 05/04/16) PENICILLINS (Verified Allergy, Unknown, 05/04/16) TELITHROMYCIN (Unverified Adverse Reaction, Unknown, 05/10/16) Uncoded Allergies: KETOLIDES (Allergy, Unknown, 05/04/16) RED DYES (Allergy, Unknown, 05/04/16) TARTRAZINE (Allergy, Unknown, 05/04/16) YELLOW DYE-NON TARTRAZINE (Allergy, Unknown, 05/04/16) Subjective no event Objective Last 24 Hour Vital Signs Date Time Temp Pulse Resp B/P Pulse Ox O2 Delivery O2 Flow Rate FiO2 05/11/16 09:04 81 05/11/16 09:03 81 121/80 05/11/16 08:00 97.3 81 17 120/80 95 Room Air 05/11/16 04:10 98.6 89 17 104/51 95 Room Air 05/11/16 04:00 74 05/11/16 00:15 98.4 86 18 118/72 95 Room Air 05/11/16 00:00 63 3/21/17 21:00 60 106/58 05/10/16 20:00 97.3 60 18 106/58 97 Room Air 05/10/16 20:00 69 05/10/16 16:00 68 05/10/16 16:00 96.6 68 18 131/75 97 Room Air 05/10/16 12:00 96.8 99 17 132/62 96 Room Air 05/10/16 12:00 67 Intake and Output 05/10/16 05/11/16 19:00 07:00 Intake Total 500 ml 60 ml Output Total 360 ml 501 ml Balance 140 ml -441 ml Intake Oral 500 ml IV Total 60 ml Output Urine Total 360 ml 500 ml Stool Total 1 ml Laboratory Tests 05/10/16 11:25: Vancomycin Level Trough 7.3 05/11/16 06:42: White Blood Count 8.0, Red Blood Count 2.91L, Hemoglobin 9.7L, Hematocrit 29.7L , Mean Corpuscular Volume 102H, Mean Corpuscular Hemoglobin 33.3H, Mean Corpuscular Hemoglobin Concent 32.7, Red Cell Distribution Width 17.9H, Platelet Count 159, Mean Platelet Volume 6.8, Neutrophils (%) (Auto) 60.9, Lymphocytes (%) (Auto) 26.6, Monocytes (%) (Auto) 8.8, Eosinophils (%) (Auto) 2.2, Basophils (%) (Auto) 1.5, Sodium Level 143, Potassium Level 3.6, Chloride Level 103, Carbon Dioxide Level 25, Anion Gap 15, Blood Urea Nitrogen 11, Creatinine 0.7, Estimat Glomerular Filtration Rate , Glucose Level 82, Calcium Level 8.5L Height (Feet): 4 Height (Inches): 10.00 Weight (Pounds): 148 General Appearance: alert EENT: normal ENT inspection Neck: supple Cardiovascular: normal rate Respiratory/Chest: decreased breath sounds Abdomen: normal bowel sounds, non tender, soft Extremities: non-tender HERRERA ANTUNEZ May 11, 2016 09:47
[2016-05-11 12:00] VITALS: BP 120/76
--- NOTE | 2016-05-11 15:14 | Pulmonology Progress Note ---
Assessment/Plan Problems: (1) UGIB (upper gastrointestinal bleed) (2) Atrial fibrillation (3) Anemia Assessment/Plan h/h stable s/p prbc cardiology f/u heart rate controlled med/surg dc planning in process Subjective ROS Limited/Unobtainable: No Constitutional: Reports: no symptoms HEENT: Repors: no symptoms Allergies: Coded Allergies: CLARITHROMYCIN (Verified Allergy, Unknown, 05/04/16) DEXTROMETHORPHAN (Verified Allergy, Unknown, 05/04/16) MACROLIDE ANTIBIOTICS (Verified Allergy, Unknown, 05/04/16) PENICILLINS (Verified Allergy, Unknown, 05/04/16) TELITHROMYCIN (Unverified Adverse Reaction, Unknown, 05/10/16) Uncoded Allergies: KETOLIDES (Allergy, Unknown, 05/04/16) RED DYES (Allergy, Unknown, 05/04/16) TARTRAZINE (Allergy, Unknown, 05/04/16) YELLOW DYE-NON TARTRAZINE (Allergy, Unknown, 05/04/16) Objective Last 24 Hour Vital Signs Date Time Temp Pulse Resp B/P Pulse Ox O2 Delivery O2 Flow Rate FiO2 05/11/16 12:00 69 05/11/16 12:00 96.9 78 17 120/76 95 Room Air 05/11/16 10:15 70 05/11/16 09:04 81 05/11/16 09:03 81 121/80 05/11/16 08:00 97.3 81 17 120/80 95 Room Air 05/11/16 04:10 98.6 89 17 104/51 95 Room Air 05/11/16 04:00 74 05/11/16 00:15 98.4 86 18 118/72 95 Room Air 05/11/16 00:00 63 05/10/16 21:00 60 106/58 05/10/16 20:00 97.3 60 18 106/58 97 Room Air 05/10/16 20:00 69 05/10/16 16:00 68 05/10/16 16:00 96.6 68 18 131/75 97 Room Air Intake and Output 05/10/16 05/11/16 19:00 07:00 Intake Total 500 ml 60 ml Output Total 360 ml 501 ml Balance 140 ml -441 ml Intake Oral 500 ml IV Total 60 ml Output Urine Total 360 ml 500 ml Stool Total 1 ml Objective General Appearance: WD/WN HEENT: normocephalic, atraumatic Respiratory/Chest: chest wall non-tender, lungs clear Breasts: no masses Cardiovascular: normal peripheral pulses, normal rate, regular rhythm Abdomen: normal bowel sounds, soft, non tender, no organomegaly, non distended Genitourinary: normal external genitalia Skin: no rash, no lesions 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 Lymphatic: no neck adenopathy Laboratory Tests 05/11/16 06:42: White Blood Count 8.0, Red Blood Count 2.91L, Hemoglobin 9.7L, Hematocrit 29.7L , Mean Corpuscular Volume 102H, Mean Corpuscular Hemoglobin 33.3H, Mean Corpuscular Hemoglobin Concent 32.7, Red Cell Distribution Width 17.9H, Platelet Count 159, Mean Platelet Volume 6.8, Neutrophils (%) (Auto) 60.9, Lymphocytes (%) (Auto) 26.6, Monocytes (%) (Auto) 8.8, Eosinophils (%) (Auto) 2.2, Basophils (%) (Auto) 1.5, Sodium Level 143, Potassium Level 3.6, Chloride Level 103, Carbon Dioxide Level 25, Anion Gap 15, Blood Urea Nitrogen 11, Creatinine 0.7, Estimat Glomerular Filtration Rate , Glucose Level 82, Calcium Level 8.5L Current Medications Medications (Trade) Dose Ordered Sig/Amy Route PRN Reason Start Time Stop Time Status Last Admin Dose Admin Acetaminophen (Tylenol) 650 mg Q6H PRN ORAL Mild Pain/Temp > 100.5 05/04/16 18:00 06/03/16 17:59 05/10/16 17:56 Digoxin (Lanoxin) 0.125 mg DAILY ORAL 05/09/16 17:00 06/08/16 16:59 05/11/16 09:04 Iron Sucrose/ Sodium Chloride (Venofer/Sodium Chloride) 60 ml @ 240 mls/hr BEDTIME IVPB 05/09/16 21:00 05/13/16 21:14 05/10/16 22:00 Memantine (Namenda) 10 mg BID ORAL 05/04/16 09:00 06/03/16 08:59 05/11/16 09:02 Metoprolol Tartrate 25 mg 25 mg Q12HR ORAL 05/05/16 09:00 06/04/16 08:59 05/11/16 09:03 Ondansetron HCl (Zofran) 4 mg Q6H PRN IVP Nausea & Vomiting 05/04/16 08:30 06/03/16 08:29 Pantoprazole (Protonix) 40 mg EVERY 12 HOURS IVP 05/04/16 09:00 06/03/16 08:59 05/11/16 09:04 Polyethylene Glycol (Miralax) 17 gm BEDTIME ORAL 05/10/16 21:00 06/09/16 20:59 NAPOLEON JI May 11, 2016 15:14
[2016-05-11 16:00] VITALS: BP 120/56
--- NOTE | 2016-05-11 17:26 | Cardiac Electrophysiology PN ---
Assessment/Plan Status Narrative Technically difficult study due to poor acoustic windows. Study quality precludes accurate assessment of regional wall motion. Normal left ventricular chamber size, systolic function and wall motion. Left ventricular ejection fraction estimated to be 55 %. No evidence of ventricular hypertrophy. No evidence of pericardial fat or effusion. SEVERE left atrial enlargement. Right cardiac chamber sizes are within normal limits. Aortic valve calcification with decreased cusp excursion c/w aortic stenosis. Mildly thickened mitral valve leaflets with normal excursion. Mild mitral annulus and aortic root calcification. Pulmonic valve not well visualized. Normal tricuspid valve structure. A color flow and spectral Doppler study was performed and revealed: No aortic regurgitation. Peak aortic valve gradient of 41 mmHg and a mean of 22 mmHg. Aortic valve area 0.6 cm2 calculated by continuity equation. Moderate to severe mitral regurgitation. Left ventricular diastolic function could not be determined due to A-Fib. Moderate tricuspid regurgitation. Tricuspid systolic velocities suggests peak right ventricular systolic pressure of 77 mmHg, consistent with severe pulmonary hypertension. Trace pulmonic regurgitation present. Assessment/Plan 1. Atrial fibrillation/flutter with rapid ventricular rates. No congestive heart failure or acute coronary syndrome. Rate stable on metoprolol 25 bid and Digoxin 0.125 mg daily.Not a candidate for cardioversion given the persistent atrial fibrillation and is not a candidate for anticoagulation due to gastrointestinal bleeding. Dig level 1.7 on 05/07/16. 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 2. Severe Aortic stenosis CALVIN 0.6. 3. Severe pulmonary HTN 4. GI bleed, s/p PRBC and EGD that showed gastritis. On Venofer. TAMELA RN Subjective Subjective Comfortable in NAD. RN at bedside. Rate controlled. Objective Last 24 Hour Vital Signs Date Time Temp Pulse Resp B/P Pulse Ox O2 Delivery O2 Flow Rate FiO2 05/11/16 16:00 97.9 80 18 120/56 95 Room Air 05/11/16 12:00 69 05/11/16 12:00 96.9 78 17 120/76 95 Room Air 05/11/16 10:15 70 05/11/16 09:04 81 05/11/16 09:03 81 121/80 05/11/16 08:00 97.3 81 17 120/80 95 Room Air 05/11/16 04:10 98.6 89 17 104/51 95 Room Air 05/11/16 04:00 74 05/11/16 00:15 98.4 86 18 118/72 95 Room Air 05/11/16 00:00 63 05/10/16 21:00 60 106/58 05/10/16 20:00 97.3 60 18 106/58 97 Room Air 05/10/16 20:00 69 Intake and Output 05/10/16 05/11/16 19:00 07:00 Intake Total 500 ml 60 ml Output Total 360 ml 501 ml Balance 140 ml -441 ml Intake Oral 500 ml IV Total 60 ml Output Urine Total 360 ml 500 ml Stool Total 1 ml Laboratory Tests Test 05/11/16 06:42 White Blood Count 8.0 K/UL (4.8-10.8) Red Blood Count 2.91 M/UL (4.20-5.40) L Hemoglobin 9.7 G/DL (12.0-16.0) L Hematocrit 29.7 % (37.0-47.0) L Mean Corpuscular Volume 102 FL (80-99) H Mean Corpuscular Hemoglobin 33.3 PG (27.0-31.0) H Mean Corpuscular Hemoglobin Concent 32.7 G/DL (32.0-36.0) Red Cell Distribution Width 17.9 % (11.6-14.8) H Platelet Count 159 K/UL (150-450) Mean Platelet Volume 6.8 FL (6.5-10.1) Neutrophils (%) (Auto) 60.9 % (45.0-75.0) Lymphocytes (%) (Auto) 26.6 % (20.0-45.0) Monocytes (%) (Auto) 8.8 % (1.0-10.0) Eosinophils (%) (Auto) 2.2 % (0.0-3.0) Basophils (%) (Auto) 1.5 % (0.0-2.0) Sodium Level 143 mEQ/L (135-145) Potassium Level 3.6 mEQ/L (3.4-4.9) Chloride Level 103 mEQ/L (98-107) Carbon Dioxide Level 25 mEQ/L (20-30) Anion Gap 15 (5-15) Blood Urea Nitrogen 11 mg/dL (7-23) Creatinine 0.7 mg/dL (0.5-0.9) Estimat Glomerular Filtration Rate mL/min (>60) Glucose Level 82 mg/dL (74-106) Calcium Level 8.5 mg/dL (8.6-10.2) L Objective HEENT: No JVD LUNGS: Clear to auscultation bilaterally. HEART: Irregular S1 and S2 with 2/6 systolic ejection murmur aortic area ABDOMEN: Soft and nontender. No palpable mass. EXTREMITIES: A 1+ pedal and ankle edema bilaterally. CLAIRE KEY May 11, 2016 17:26
--- NOTE | 2016-05-11 18:14 | General Progress Note ---
Assessment/Plan Assessment/Plan ASSESSMENT: 1. Anemia secondary to coffee-ground emesis and gastrointestinal bleed. s/p egd , h/h currently stable, approx 10 range 2. Decreased hemoglobin and hematocrit r/o GI bleed being evaluated by GI. egd with gastritis (path pending) 3. Anemia secondary to iron deficiency - is on iv iron 4. Leukocytosis due to reactive process, better 5. Hypertension now improved 6. Atrial fibrillation with rapid ventricular response 7. Coagulopathy secondary potential malnutrition versus vitamin K deficiency. RECOMMENDATIONS: 1. Continue iv iron 2. Hemoglobin goal>7, has been above goal 3. Platelets goal less than 20k 4. If occult +, then colo 5. Imaging has been reviewed 6. DVT prophylaxis with SCDs. 7. GI prophylaxis with pantoprazole 8. Appreciate GI and cards recs 9. staff Thank you, Quique Vanegas MD Subjective Constitutional: Reports: no symptoms HEENT: Reports: no symptoms Cardiovascular: Reports: no symptoms Respiratory: Reports: no symptoms Gastrointestinal/Abdominal: Reports: poor appetite Genitourinary: Reports: no symptoms Neurologic/Psychiatric: Reports: no symptoms Endocrine: Reports: no symptoms Hematologic/Lymphatic: Reports: anemia Allergies: Coded Allergies: CLARITHROMYCIN (Verified Allergy, Unknown, 05/04/16) DEXTROMETHORPHAN (Verified Allergy, Unknown, 05/04/16) MACROLIDE ANTIBIOTICS (Verified Allergy, Unknown, 05/04/16) PENICILLINS (Verified Allergy, Unknown, 05/04/16) TELITHROMYCIN (Unverified Adverse Reaction, Unknown, 05/10/16) Uncoded Allergies: KETOLIDES (Allergy, Unknown, 05/04/16) RED DYES (Allergy, Unknown, 05/04/16) TARTRAZINE (Allergy, Unknown, 05/04/16) YELLOW DYE-NON TARTRAZINE (Allergy, Unknown, 05/04/16) Subjective no fevers, no chills, h.h is stable Objective Last 24 Hour Vital Signs Date Time Temp Pulse Resp B/P Pulse Ox O2 Delivery O2 Flow Rate FiO2 05/11/16 16:00 97.9 80 18 120/56 95 Room Air 05/11/16 12:00 69 05/11/16 12:00 96.9 78 17 120/76 95 Room Air 05/11/16 10:15 70 05/11/16 09:04 81 05/11/16 09:03 81 121/80 05/11/16 08:00 97.3 81 17 120/80 95 Room Air 05/11/16 04:10 98.6 89 17 104/51 95 Room Air 05/11/16 04:00 74 05/11/16 00:15 98.4 86 18 118/72 95 Room Air 05/11/16 00:00 63 05/10/16 21:00 60 106/58 05/10/16 20:00 97.3 60 18 106/58 97 Room Air 05/10/16 20:00 69 Intake and Output 05/10/16 05/11/16 19:00 07:00 Intake Total 500 ml 60 ml Output Total 360 ml 501 ml Balance 140 ml -441 ml Intake Oral 500 ml IV Total 60 ml Output Urine Total 360 ml 500 ml Stool Total 1 ml Laboratory Tests 05/11/16 06:42: White Blood Count 8.0, Red Blood Count 2.91L, Hemoglobin 9.7L, Hematocrit 29.7L , Mean Corpuscular Volume 102H, Mean Corpuscular Hemoglobin 33.3H, Mean Corpuscular Hemoglobin Concent 32.7, Red Cell Distribution Width 17.9H, Platelet Count 159, Mean Platelet Volume 6.8, Neutrophils (%) (Auto) 60.9, Lymphocytes (%) (Auto) 26.6, Monocytes (%) (Auto) 8.8, Eosinophils (%) (Auto) 2.2, Basophils (%) (Auto) 1.5, Sodium Level 143, Potassium Level 3.6, Chloride Level 103, Carbon Dioxide Level 25, Anion Gap 15, Blood Urea Nitrogen 11, Creatinine 0.7, Estimat Glomerular Filtration Rate , Glucose Level 82, Calcium Level 8.5L Height (Feet): 4 Height (Inches): 10.00 Weight (Pounds): 148 General Appearance: alert EENT: TMs normal Neck: supple Cardiovascular: normal rate Respiratory/Chest: lungs clear Abdomen: non tender Extremities: non-tender Edema: 1+ Leg (L), 1+ Leg (R) Edema: mild edema Neurologic: alert Skin: warm/dry Quique Vanegas May 11, 2016 18:14
--- NOTE | 2016-05-11 18:45 | Internal Med Progress Note ---
Subjective Date of Service: May 11, 2016 Physician Name Shanice Knight Attending Physician Galileo Quezada MD Current Medications Medications (Trade) Dose Ordered Sig/Amy Route PRN Reason Start Time Stop Time Status Last Admin Dose Admin Acetaminophen (Tylenol) 650 mg Q6H PRN ORAL Mild Pain/Temp > 100.5 05/04/16 18:00 06/03/16 17:59 05/10/16 17:56 Digoxin (Lanoxin) 0.125 mg DAILY ORAL 05/09/16 17:00 06/08/16 16:59 05/11/16 09:04 Iron Sucrose/ Sodium Chloride (Venofer/Sodium Chloride) 60 ml @ 240 mls/hr BEDTIME IVPB 05/09/16 21:00 05/13/16 21:14 05/10/16 22:00 Memantine (Namenda) 10 mg BID ORAL 05/04/16 09:00 06/03/16 08:59 05/11/16 18:15 Metoprolol Tartrate 25 mg 25 mg Q12HR ORAL 05/05/16 09:00 06/04/16 08:59 05/11/16 09:03 Ondansetron HCl (Zofran) 4 mg Q6H PRN IVP Nausea & Vomiting 05/04/16 08:30 06/03/16 08:29 Pantoprazole (Protonix) 40 mg EVERY 12 HOURS IVP 05/04/16 09:00 06/03/16 08:59 05/11/16 09:04 Polyethylene Glycol (Miralax) 17 gm BEDTIME ORAL 05/10/16 21:00 06/09/16 20:59 Allergies: Coded Allergies: CLARITHROMYCIN (Verified Allergy, Unknown, 05/04/16) DEXTROMETHORPHAN (Verified Allergy, Unknown, 05/04/16) MACROLIDE ANTIBIOTICS (Verified Allergy, Unknown, 05/04/16) PENICILLINS (Verified Allergy, Unknown, 05/04/16) TELITHROMYCIN (Unverified Adverse Reaction, Unknown, 05/10/16) Uncoded Allergies: KETOLIDES (Allergy, Unknown, 05/04/16) RED DYES (Allergy, Unknown, 05/04/16) TARTRAZINE (Allergy, Unknown, 05/04/16) YELLOW DYE-NON TARTRAZINE (Allergy, Unknown, 05/04/16) ROS Limited/Unobtainable: Yes Subjective 85 YO F admitted with GI hemorrhage. S/P transfusion 2 units Packed RBC. S/P Endoscopy on 05/06/16. Cover for Int Med-Dr Quezada. Await bed availability at [facility]. Objective Last Vital Signs Date Time Temp Pulse Resp B/P Pulse Ox O2 Delivery O2 Flow Rate FiO2 05/11/16 16:00 97.9 80 18 120/56 95 Room Air 05/09/16 08:00 2.0 Laboratory Tests Test 05/11/16 06:42 White Blood Count 8.0 K/UL (4.8-10.8) Red Blood Count 2.91 M/UL (4.20-5.40) L Hemoglobin 9.7 G/DL (12.0-16.0) L Hematocrit 29.7 % (37.0-47.0) L Mean Corpuscular Volume 102 FL (80-99) H Mean Corpuscular Hemoglobin 33.3 PG (27.0-31.0) H Mean Corpuscular Hemoglobin Concent 32.7 G/DL (32.0-36.0) Red Cell Distribution Width 17.9 % (11.6-14.8) H Platelet Count 159 K/UL (150-450) Mean Platelet Volume 6.8 FL (6.5-10.1) Neutrophils (%) (Auto) 60.9 % (45.0-75.0) Lymphocytes (%) (Auto) 26.6 % (20.0-45.0) Monocytes (%) (Auto) 8.8 % (1.0-10.0) Eosinophils (%) (Auto) 2.2 % (0.0-3.0) Basophils (%) (Auto) 1.5 % (0.0-2.0) Sodium Level 143 mEQ/L (135-145) Potassium Level 3.6 mEQ/L (3.4-4.9) Chloride Level 103 mEQ/L (98-107) Carbon Dioxide Level 25 mEQ/L (20-30) Anion Gap 15 (5-15) Blood Urea Nitrogen 11 mg/dL (7-23) Creatinine 0.7 mg/dL (0.5-0.9) Estimat Glomerular Filtration Rate mL/min (>60) Glucose Level 82 mg/dL (74-106) Calcium Level 8.5 mg/dL (8.6-10.2) L Intake and Output 05/10/16 05/11/16 19:00 07:00 Intake Total 500 ml 60 ml Output Total 360 ml 501 ml Balance 140 ml -441 ml Intake Oral 500 ml IV Total 60 ml Output Urine Total 360 ml 500 ml Stool Total 1 ml Objective General Appearance: WD/WN, no apparent distress EENT: PERRL/EOMI, normal ENT inspection Neck: non-tender, normal alignment, supple Cardiovascular: normal peripheral pulses, no gallop/murmur, no JVD, tachycardia , irregularly irregular Respiratory/Chest: chest wall non-tender, lungs clear, normal breath sounds, no respiratory distress, no accessory muscle use Abdomen: soft, decreased bowel sounds, guarding, tender Extremities: normal range of motion Skin: normal pigmentation, warm/dry Assessment/Plan Problem List: (1) Generalized weakness (2) Vertigo (3) CAD (coronary artery disease) (4) HTN (hypertension) Assessment & Plan: Cont metoprolol (5) CHF (congestive heart failure) (6) Alzheimer's dementia (7) Aortic stenosis (8) Tachycardia Assessment & Plan: Tachy/stephy syndrome-see cardiology note. Not a candidate for ablation (9) UGIB (upper gastrointestinal bleed) Assessment & Plan: S/P Endoscopy on 05/06/16; Dx=Gastritis. See GI note. (10) Anemia Assessment & Plan: Due to GI bleed. S/P transfusion 2 units PRBC. See heme note. Continue IV venofer. (11) Atrial fibrillation Assessment & Plan: Rapid ventricular rate. See cardiology note-Dr Lawrence. (12) Coffee ground emesis (13) Bacteremia Assessment & Plan: Coag neg staph and diptheroids. See ID note. D/C vancomycin per ID. (14) Gastritis Assessment/Plan Discharge planning: [facility] living facility when bed available. SHANICE KNIGHT May 11, 2016 18:45
[2016-05-11 20:00] VITALS: BP 118/79
[2016-05-11] MEDS: Iron Sucrose 100 MG in NS 55 ML IVPB SCH (22:52)
[2016-05-11] MEDS: Miralax 17gm pkt ORAL SCH (22:52)
[2016-05-12 00:53] VITALS: BP 119/64
[2016-05-12 04:15] VITALS: BP 124/69
[2016-05-12 06:13] LABS: BASOPHILS % (AUTO) 1.7 % (0.0-2.0); LYMPHOCYTES % (AUTO) 24.7 % (20.0-45.0); MEAN CORPUSCULAR HEMOGLOBIN 32.6 PG (27.0-31.0); MEAN CORPUSCULAR HGB CONC 31.8 G/DL (32.0-36.0); MEAN CORPUSCULAR VOLUME 103 FL (80-99); MEAN PLATELET VOLUME 6.9 FL (6.5-10.1); MONOCYTES % (AUTO) 10.6 % (1.0-10.0); NEUTROPHILS % (AUTO) 61.1 % (45.0-75.0); PLATELET COUNT 169 K/UL (150-450); RED BLOOD COUNT 3.06 M/UL (4.20-5.40); WHITE BLOOD COUNT 7.9 K/UL (4.8-10.8)
[2016-05-12 07:05] LABS: ANION GAP 18 (5-15); CALCIUM 8.2 mg/dL (8.6-10.2); CARBON DIOXIDE 22 mEQ/L (20-30); CHLORIDE 102 mEQ/L (98-107); CREATININE 0.6 mg/dL (0.5-0.9); HEMOLYSIS 9; POTASSIUM 3.6 mEQ/L (3.4-4.9); SODIUM 142 mEQ/L (135-145)
[2016-05-12 07:55] VITALS: BP 127/64
[2016-05-12] MEDS: Metoprolol 25mg tab ORAL SCH (08:51)
[2016-05-12] MEDS: Pantoprazole Inj IVP SCH (08:52)
[2016-05-12] MEDS: Digoxin 0.125mg tab ORAL SCH (08:52)
[2016-05-12] MEDS: Memantine 10mg tab ORAL SCH (08:52)
--- NOTE | 2016-05-12 09:07 | Infectious Diseases Prog Note ---
Assessment/Plan Assessment/Plan ASSESSMENT: 85 y/o female with: // Polymicrobial ( CONS 1/4, diptheroids 1/ ) bacteremia, m/l contaminants - repeat BCx NGTD - TTE(-) SBE // Leukocytosis, mild - resolved, afebrile ( GIB contributing ) // SP UGIB - Hgb stable - SP EGD 05/06: diffuse gastritis, path: chronic H.pylori(-) gastritis. no malignancy // FOBT(+) anemia SP PRBCs // h/o CAD / CHF, EF 55% // Aortic stenosis // Severe pulmonary HTN // Alzheimer's dementia // MRSA colonized // Macrolide, PCN allergies PLAN: - ok to DC off of ABX from ID standpoint ( 05/09 SP IV vancomycin d# 3 ) - monitor CBC, temperatures - monitor BMP - transfuse prn Subjective Allergies: Coded Allergies: CLARITHROMYCIN (Verified Allergy, Unknown, 05/04/16) DEXTROMETHORPHAN (Verified Allergy, Unknown, 05/04/16) MACROLIDE ANTIBIOTICS (Verified Allergy, Unknown, 05/04/16) PENICILLINS (Verified Allergy, Unknown, 05/04/16) TELITHROMYCIN (Unverified Adverse Reaction, Unknown, 05/10/16) Uncoded Allergies: KETOLIDES (Allergy, Unknown, 05/04/16) RED DYES (Allergy, Unknown, 05/04/16) TARTRAZINE (Allergy, Unknown, 05/04/16) YELLOW DYE-NON TARTRAZINE (Allergy, Unknown, 05/04/16) Subjective remains afebrile repeat BCx NGTD DC planning Objective Vital Signs Last 24 Hour Vital Signs Date Time Temp Pulse Resp B/P Pulse Ox O2 Delivery O2 Flow Rate FiO2 05/12/16 08:52 67 05/12/16 08:51 67 127/64 05/12/16 07:55 97.5 67 18 127/64 91 Room Air 05/12/16 04:15 98.1 58 18 124/69 97 Room Air 05/12/16 04:00 66 05/12/16 00:53 97.9 67 17 119/64 97 Room Air 05/12/16 00:00 80 05/11/16 22:51 69 118/79 05/11/16 20:00 96.4 69 18 118/79 97 Room Air 05/11/16 20:00 73 05/11/16 16:00 97.9 80 18 120/56 95 Room Air 05/11/16 16:00 64 05/11/16 12:00 69 05/11/16 12:00 96.9 78 17 120/76 95 Room Air 05/11/16 10:15 70 Height (Feet): 4 Height (Inches): 10.00 Weight (Pounds): 148 General Appearance: no acute distress Respiratory/Chest: no respiratory distress Cardiovascular: normal rate, regular rhythm Abdomen: normal bowel sounds, soft, non tender, non distended Laboratory Tests Test 05/12/16 04:35 White Blood Count 7.9 K/UL (4.8-10.8) Red Blood Count 3.06 M/UL (4.20-5.40) L Hemoglobin 10.0 G/DL (12.0-16.0) L Hematocrit 31.4 % (37.0-47.0) L Mean Corpuscular Volume 103 FL (80-99) H Mean Corpuscular Hemoglobin 32.6 PG (27.0-31.0) H Mean Corpuscular Hemoglobin Concent 31.8 G/DL (32.0-36.0) L Red Cell Distribution Width 18.0 % (11.6-14.8) H Platelet Count 169 K/UL (150-450) Mean Platelet Volume 6.9 FL (6.5-10.1) Neutrophils (%) (Auto) 61.1 % (45.0-75.0) Lymphocytes (%) (Auto) 24.7 % (20.0-45.0) Monocytes (%) (Auto) 10.6 % (1.0-10.0) H Eosinophils (%) (Auto) 2.0 % (0.0-3.0) Basophils (%) (Auto) 1.7 % (0.0-2.0) Sodium Level 142 mEQ/L (135-145) Potassium Level 3.6 mEQ/L (3.4-4.9) Chloride Level 102 mEQ/L (98-107) Carbon Dioxide Level 22 mEQ/L (20-30) Anion Gap 18 (5-15) H Blood Urea Nitrogen 10 mg/dL (7-23) Creatinine 0.6 mg/dL (0.5-0.9) Estimat Glomerular Filtration Rate mL/min (>60) Glucose Level 67 mg/dL (74-106) L Calcium Level 8.2 mg/dL (8.6-10.2) L Current Medications Medications (Trade) Dose Ordered Sig/Amy Route PRN Reason Start Time Stop Time Status Last Admin Dose Admin Acetaminophen (Tylenol) 650 mg Q6H PRN ORAL Mild Pain/Temp > 100.5 05/04/16 18:00 06/03/16 17:59 05/10/16 17:56 Digoxin (Lanoxin) 0.125 mg DAILY ORAL 05/09/16 17:00 06/08/16 16:59 05/12/16 08:52 Iron Sucrose/ Sodium Chloride (Venofer/Sodium Chloride) 60 ml @ 240 mls/hr BEDTIME IVPB 05/09/16 21:00 05/13/16 21:14 05/11/16 22:52 Memantine (Namenda) 10 mg BID ORAL 05/04/16 09:00 06/03/16 08:59 05/12/16 08:52 Metoprolol Tartrate 25 mg 25 mg Q12HR ORAL 05/05/16 09:00 06/04/16 08:59 05/12/16 08:51 Ondansetron HCl (Zofran) 4 mg Q6H PRN IVP Nausea & Vomiting 05/04/16 08:30 06/03/16 08:29 Pantoprazole (Protonix) 40 mg EVERY 12 HOURS IVP 05/04/16 09:00 06/03/16 08:59 05/12/16 08:52 Polyethylene Glycol (Miralax) 17 gm BEDTIME ORAL 05/10/16 21:00 06/09/16 20:59 05/11/16 22:52 QUETA ZAMUDIO May 12, 2016 09:07
--- NOTE | 2016-05-12 10:25 | General Progress Note ---
Assessment/Plan Problem List: (1) Coffee ground emesis ICD Codes: K92.0 - Hematemesis SNOMED: 41795978 (2) Hypoalbuminemia ICD Codes: E88.09 - Other disorders of plasma-protein metabolism, not elsewhere classified SNOMED: 131759991 (3) Leukocytosis ICD Codes: D72.829 - Elevated white blood cell count, unspecified SNOMED: 583889577, 403810329 (4) Atrial fibrillation ICD Codes: I48.91 - Unspecified atrial fibrillation SNOMED: 88222058 (5) UGIB (upper gastrointestinal bleed) ICD Codes: K92.2 - Gastrointestinal hemorrhage, unspecified SNOMED: 66198839 (6) Anemia ICD Codes: D64.9 - Anemia, unspecified SNOMED: 822402336 Qualifiers: Qualified Codes: D64.9 - Anemia, unspecified Assessment/Plan s/p EGD stable H&H fu labs tolerating diet repeat stool ob and plan colonoscopy if positive o/w as out patient Subjective ROS Limited/Unobtainable: Yes Allergies: Coded Allergies: CLARITHROMYCIN (Verified Allergy, Unknown, 05/04/16) DEXTROMETHORPHAN (Verified Allergy, Unknown, 05/04/16) MACROLIDE ANTIBIOTICS (Verified Allergy, Unknown, 05/04/16) PENICILLINS (Verified Allergy, Unknown, 05/04/16) TELITHROMYCIN (Unverified Adverse Reaction, Unknown, 05/10/16) Uncoded Allergies: KETOLIDES (Allergy, Unknown, 05/04/16) RED DYES (Allergy, Unknown, 05/04/16) TARTRAZINE (Allergy, Unknown, 05/04/16) YELLOW DYE-NON TARTRAZINE (Allergy, Unknown, 05/04/16) Subjective no event Objective Last 24 Hour Vital Signs Date Time Temp Pulse Resp B/P Pulse Ox O2 Delivery O2 Flow Rate FiO2 05/12/16 08:52 67 05/12/16 08:51 67 127/64 05/12/16 07:55 97.5 67 18 127/64 91 Room Air 05/12/16 04:15 98.1 58 18 124/69 97 Room Air 05/12/16 04:00 66 05/12/16 00:53 97.9 67 17 119/64 97 Room Air 05/12/16 00:00 80 3/22/17 22:51 69 118/79 05/11/16 20:00 96.4 69 18 118/79 97 Room Air 05/11/16 20:00 73 05/11/16 16:00 97.9 80 18 120/56 95 Room Air 05/11/16 16:00 64 05/11/16 12:00 69 05/11/16 12:00 96.9 78 17 120/76 95 Room Air Intake and Output 05/11/16 05/12/16 19:00 07:00 Intake Total 430 ml 350 ml Output Total 360 ml 600 ml Balance 70 ml -250 ml Intake Oral 430 ml 350 ml Output Urine Total 360 ml 600 ml # Bowel Movements 1 1 Laboratory Tests 05/12/16 04:35: White Blood Count 7.9, Red Blood Count 3.06L, Hemoglobin 10.0L, Hematocrit 31.4L , Mean Corpuscular Volume 103H, Mean Corpuscular Hemoglobin 32.6H, Mean Corpuscular Hemoglobin Concent 31.8L, Red Cell Distribution Width 18.0H, Platelet Count 169, Mean Platelet Volume 6.9, Neutrophils (%) (Auto) 61.1, Lymphocytes (%) (Auto) 24.7, Monocytes (%) (Auto) 10.6H, Eosinophils (%) (Auto) 2.0, Basophils (%) (Auto) 1.7, Sodium Level 142, Potassium Level 3.6, Chloride Level 102, Carbon Dioxide Level 22, Anion Gap 18H, Blood Urea Nitrogen 10, Creatinine 0.6, Estimat Glomerular Filtration Rate , Glucose Level 67L, Calcium Level 8.2L Height (Feet): 4 Height (Inches): 10.00 Weight (Pounds): 148 General Appearance: alert EENT: normal ENT inspection Neck: supple Cardiovascular: normal rate Respiratory/Chest: decreased breath sounds Abdomen: normal bowel sounds, non tender, soft Extremities: non-tender HERRERA ANTUNEZ May 12, 2016 10:25
[2016-05-12 11:24] VITALS: BP 121/57
[2016-05-12] MEDS ORDERED: NS 275ml ONE (13:54)
[2016-05-12] MEDS ORDERED: Tubing IV Secondary IV ONE (13:54)
--- NOTE | 2016-05-12 14:48 | General Progress Note ---
Assessment/Plan Assessment/Plan ASSESSMENT: 1. Anemia secondary to coffee-ground emesis and gastrointestinal bleed. s/p egd , h/h currently stable, approx 10 range 2. Decreased hemoglobin and hematocrit r/o GI bleed being evaluated by GI. egd with gastritis (path pending) 3. Anemia secondary to iron deficiency - is on iv iron 4. Leukocytosis due to reactive process, better 5. Hypertension now improved 6. Atrial fibrillation with rapid ventricular response 7. Coagulopathy secondary potential malnutrition versus vitamin K deficiency. RECOMMENDATIONS: 1. Continue iv iron x 10days 2. Hemoglobin goal>7, has been above goal 3. Platelets goal less than 20k 4. If occult +, then colo 5. DVT prophylaxis with SCDs. 6. GI prophylaxis with pantoprazole 7. Appreciate GI and cards recs 8. staff Thank you, Quique Vanegas MD Subjective Constitutional: Denies: chills, diaphoresis, fever, malaise, no symptoms, other , weakness HEENT: Denies: blurred vision, double vision, ear discharge, ear pain, eye pain , mouth pain, mouth swelling, no symptoms, nose congestion, nose pain, other, tearing, throat pain, throat swelling Cardiovascular: Denies: chest pain, edema, irregular heart rate, lightheadedness, no symptoms, other, palpitations, syncope Respiratory: Denies: SOB at rest, SOB with excertion, cough, no symptoms, orthopnea, other, shortness of breath, sputum, stridor, wheezing Gastrointestinal/Abdominal: Denies: abdomen distended, abdominal pain, black stools, blood in stool, constipated, diarrhea, difficulty swallowing, nausea, no symptoms, other, poor appetite, poor fluid intake, rectal bleeding, tarry stools, vomiting Genitourinary: Denies: burning, discharge, flank pain, frequency, hematuria, incontinence, no symptoms, other, pain, urgency Neurologic/Psychiatric: Denies: anxiety, depressed, emotional problems, headache, no symptoms, numbness, other, paresthesia, pre-existing deficit, seizure, tingling, tremors, weakness Allergies: Coded Allergies: CLARITHROMYCIN (Verified Allergy, Unknown, 05/04/16) DEXTROMETHORPHAN (Verified Allergy, Unknown, 05/04/16) MACROLIDE ANTIBIOTICS (Verified Allergy, Unknown, 05/04/16) PENICILLINS (Verified Allergy, Unknown, 05/04/16) TELITHROMYCIN (Unverified Adverse Reaction, Unknown, 05/10/16) Uncoded Allergies: KETOLIDES (Allergy, Unknown, 05/04/16) RED DYES (Allergy, Unknown, 05/04/16) TARTRAZINE (Allergy, Unknown, 05/04/16) YELLOW DYE-NON TARTRAZINE (Allergy, Unknown, 05/04/16) Subjective no fevers, no chills, h.h has been stable Objective Last 24 Hour Vital Signs Date Time Temp Pulse Resp B/P Pulse Ox O2 Delivery O2 Flow Rate FiO2 05/12/16 11:24 97.6 83 18 121/57 95 Room Air 05/12/16 08:52 67 05/12/16 08:51 67 127/64 05/12/16 08:00 77 05/12/16 07:55 97.5 67 18 127/64 91 Room Air 05/12/16 04:15 98.1 58 18 124/69 97 Room Air 05/12/16 04:00 66 05/12/16 00:53 97.9 67 17 119/64 97 Room Air 05/12/16 00:00 80 05/11/16 22:51 69 118/79 05/11/16 20:00 96.4 69 18 118/79 97 Room Air 05/11/16 20:00 73 05/11/16 16:00 97.9 80 18 120/56 95 Room Air 05/11/16 16:00 64 Intake and Output 05/11/16 05/12/16 19:00 07:00 Intake Total 430 ml 350 ml Output Total 360 ml 600 ml Balance 70 ml -250 ml Intake Oral 430 ml 350 ml Output Urine Total 360 ml 600 ml # Bowel Movements 1 1 Laboratory Tests 05/12/16 04:35: White Blood Count 7.9, Red Blood Count 3.06L, Hemoglobin 10.0L, Hematocrit 31.4L , Mean Corpuscular Volume 103H, Mean Corpuscular Hemoglobin 32.6H, Mean Corpuscular Hemoglobin Concent 31.8L, Red Cell Distribution Width 18.0H, Platelet Count 169, Mean Platelet Volume 6.9, Neutrophils (%) (Auto) 61.1, Lymphocytes (%) (Auto) 24.7, Monocytes (%) (Auto) 10.6H, Eosinophils (%) (Auto) 2.0, Basophils (%) (Auto) 1.7, Sodium Level 142, Potassium Level 3.6, Chloride Level 102, Carbon Dioxide Level 22, Anion Gap 18H, Blood Urea Nitrogen 10, Creatinine 0.6, Estimat Glomerular Filtration Rate , Glucose Level 67L, Calcium Level 8.2L Height (Feet): 4 Height (Inches): 10.00 Weight (Pounds): 148 General Appearance: no apparent distress EENT: TMs normal Neck: supple Cardiovascular: normal rate Respiratory/Chest: lungs clear Abdomen: non tender Extremities: normal inspection Neurologic: alert Skin: warm/dry Quique Vanegas May 12, 2016 14:48
--- NOTE | 2016-05-12 16:01 | Cardiac Electrophysiology PN ---
Assessment/Plan Status Narrative Technically difficult study due to poor acoustic windows. Study quality precludes accurate assessment of regional wall motion. Normal left ventricular chamber size, systolic function and wall motion. Left ventricular ejection fraction estimated to be 55 %. No evidence of ventricular hypertrophy. No evidence of pericardial fat or effusion. SEVERE left atrial enlargement. Right cardiac chamber sizes are within normal limits. Aortic valve calcification with decreased cusp excursion c/w aortic stenosis. Mildly thickened mitral valve leaflets with normal excursion. Mild mitral annulus and aortic root calcification. Pulmonic valve not well visualized. Normal tricuspid valve structure. A color flow and spectral Doppler study was performed and revealed: No aortic regurgitation. Peak aortic valve gradient of 41 mmHg and a mean of 22 mmHg. Aortic valve area 0.6 cm2 calculated by continuity equation. Moderate to severe mitral regurgitation. Left ventricular diastolic function could not be determined due to A-Fib. Moderate tricuspid regurgitation. Tricuspid systolic velocities suggests peak right ventricular systolic pressure of 77 mmHg, consistent with severe pulmonary hypertension. Trace pulmonic regurgitation present. Assessment/Plan 1. Atrial fibrillation/flutter with rapid ventricular rates. Rate stable on metoprolol 25 bid and Digoxin 0.125 mg daily.Not a candidate for anticoagulation due to gastrointestinal bleeding. Dig level 1.7 on 05/07/16. 2. Severe Aortic stenosis CALVIN 0.6. 3. Severe pulmonary HTN 4. GI bleed, s/p PRBC and EGD that showed gastritis. On Venofer. TAMELA RN Subjective Subjective Comfortable in NAD. No events overnight. Rate controlled. DC planning today. Objective Last 24 Hour Vital Signs Date Time Temp Pulse Resp B/P Pulse Ox O2 Delivery O2 Flow Rate FiO2 05/12/16 12:00 60 05/12/16 11:24 97.6 83 18 121/57 95 Room Air 05/12/16 08:52 67 05/12/16 08:51 67 127/64 05/12/16 08:00 77 05/12/16 07:55 97.5 67 18 127/64 91 Room Air 05/12/16 04:15 98.1 58 18 124/69 97 Room Air 05/12/16 04:00 66 05/12/16 00:53 97.9 67 17 119/64 97 Room Air 05/12/16 00:00 80 05/11/16 22:51 69 118/79 05/11/16 20:00 96.4 69 18 118/79 97 Room Air 05/11/16 20:00 73 05/11/16 16:00 97.9 80 18 120/56 95 Room Air 05/11/16 16:00 64 Intake and Output 05/11/16 05/12/16 19:00 07:00 Intake Total 430 ml 350 ml Output Total 360 ml 600 ml Balance 70 ml -250 ml Intake Oral 430 ml 350 ml Output Urine Total 360 ml 600 ml # Bowel Movements 1 1 Laboratory Tests Test 05/12/16 04:35 White Blood Count 7.9 K/UL (4.8-10.8) Red Blood Count 3.06 M/UL (4.20-5.40) L Hemoglobin 10.0 G/DL (12.0-16.0) L Hematocrit 31.4 % (37.0-47.0) L Mean Corpuscular Volume 103 FL (80-99) H Mean Corpuscular Hemoglobin 32.6 PG (27.0-31.0) H Mean Corpuscular Hemoglobin Concent 31.8 G/DL (32.0-36.0) L Red Cell Distribution Width 18.0 % (11.6-14.8) H Platelet Count 169 K/UL (150-450) Mean Platelet Volume 6.9 FL (6.5-10.1) Neutrophils (%) (Auto) 61.1 % (45.0-75.0) Lymphocytes (%) (Auto) 24.7 % (20.0-45.0) Monocytes (%) (Auto) 10.6 % (1.0-10.0) H Eosinophils (%) (Auto) 2.0 % (0.0-3.0) Basophils (%) (Auto) 1.7 % (0.0-2.0) Sodium Level 142 mEQ/L (135-145) Potassium Level 3.6 mEQ/L (3.4-4.9) Chloride Level 102 mEQ/L (98-107) Carbon Dioxide Level 22 mEQ/L (20-30) Anion Gap 18 (5-15) H Blood Urea Nitrogen 10 mg/dL (7-23) Creatinine 0.6 mg/dL (0.5-0.9) Estimat Glomerular Filtration Rate mL/min (>60) Glucose Level 67 mg/dL (74-106) L Calcium Level 8.2 mg/dL (8.6-10.2) L Objective HEENT: No JVD LUNGS: Clear HEART: Irregular S1 and S2 with 2/6 systolic ejection murmur aortic area ABDOMEN: Soft and nontender. No palpable mass. EXTREMITIES: A 1+ pedal and ankle edema bilaterally. CLAIRE KEY May 12, 2016 16:01
--- NOTE | 2016-05-12 22:19 | Pulmonology Progress Note ---
Assessment/Plan Problems: (1) UGIB (upper gastrointestinal bleed) (2) Atrial fibrillation (3) Anemia Assessment/Plan h/h stable s/p prbc cardiology f/u heart rate controlled med/surg dc planning in process for today all forms from assisted living filled out Subjective ROS Limited/Unobtainable: No Interval Events: comfortable, Allergies: Coded Allergies: CLARITHROMYCIN (Verified Allergy, Unknown, 05/04/16) DEXTROMETHORPHAN (Verified Allergy, Unknown, 05/04/16) MACROLIDE ANTIBIOTICS (Verified Allergy, Unknown, 05/04/16) PENICILLINS (Verified Allergy, Unknown, 05/04/16) TELITHROMYCIN (Unverified Adverse Reaction, Unknown, 05/10/16) Uncoded Allergies: KETOLIDES (Allergy, Unknown, 05/04/16) RED DYES (Allergy, Unknown, 05/04/16) TARTRAZINE (Allergy, Unknown, 05/04/16) YELLOW DYE-NON TARTRAZINE (Allergy, Unknown, 05/04/16) Objective Last 24 Hour Vital Signs Date Time Temp Pulse Resp B/P Pulse Ox O2 Delivery O2 Flow Rate FiO2 05/12/16 12:00 60 05/12/16 11:24 97.6 83 18 121/57 95 Room Air 05/12/16 08:52 67 05/12/16 08:51 67 127/64 05/12/16 08:00 77 05/12/16 07:55 97.5 67 18 127/64 91 Room Air 05/12/16 04:15 98.1 58 18 124/69 97 Room Air 05/12/16 04:00 66 05/12/16 00:53 97.9 67 17 119/64 97 Room Air 05/12/16 00:00 80 05/11/16 22:51 69 118/79 Intake and Output 05/11/16 05/12/16 18:59 06:59 Intake Total 430 ml 350 ml Output Total 360 ml 600 ml Balance 70 ml -250 ml Intake Oral 430 ml 350 ml Output Urine Total 360 ml 600 ml # Bowel Movements 1 1 Objective General Appearance: WD/WN HEENT: normocephalic, atraumatic Respiratory/Chest: chest wall non-tender, lungs clear Breasts: no masses Cardiovascular: normal peripheral pulses, normal rate, regular rhythm Abdomen: normal bowel sounds, soft, non tender, no organomegaly, non distended Genitourinary: normal external genitalia Skin: no rash, no lesions 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 Lymphatic: no neck adenopathy Laboratory Tests 05/12/16 04:35: White Blood Count 7.9, Red Blood Count 3.06L, Hemoglobin 10.0L, Hematocrit 31.4L , Mean Corpuscular Volume 103H, Mean Corpuscular Hemoglobin 32.6H, Mean Corpuscular Hemoglobin Concent 31.8L, Red Cell Distribution Width 18.0H, Platelet Count 169, Mean Platelet Volume 6.9, Neutrophils (%) (Auto) 61.1, Lymphocytes (%) (Auto) 24.7, Monocytes (%) (Auto) 10.6H, Eosinophils (%) (Auto) 2.0, Basophils (%) (Auto) 1.7, Sodium Level 142, Potassium Level 3.6, Chloride Level 102, Carbon Dioxide Level 22, Anion Gap 18H, Blood Urea Nitrogen 10, Creatinine 0.6, Estimat Glomerular Filtration Rate , Glucose Level 67L, Calcium Level 8.2L NAPOLEON JI May 12, 2016 22:19
--- NOTE | 2016-05-13 18:45 | Discharge Summary ---
Discharge Summary Hospital Course Date of Admission May 04, 2016 at 02:36 Date of Discharge May 12, 2016 at 13:55 Admitting Diagnosis upper gi bleed HPI Adela Rodriguez is a 85 year old female who was admitted on May 04, 2016 at 02:36 for Upper Gastrointestinal Bleed Hospital Course [id number] Discharge Discharge Disposition Patient was discharged to [facility] (01) Discharge Diagnoses: Alba Hopkins NP May 13, 2016 18:45
--- NOTE | 2016-05-14 03:48 | Discharge Summary 2 SIG ---
DATE OF ADMISSION: 05/04/2016 DATE OF DISCHARGE: 05/12/2016 CONSULTANTS: 1. Abdoul Lorenzana M.D. 2. Flakito Pedraza M.D. 3. Quique Vanegas M.D. 4. Gautam Shetty M.D. BRIEF HOSPITAL COURSE: The patient is an 85-year-old female who is a resident of [facility] with history of Alzheimer's dementia was brought in to [facility] for complaints of vomiting blood. EMS was called and the patient was taken to [facility]. On evaluation at ED, hemoglobin was 6.9. The patient also had tachycardia approximately 125 beats per minute. She was admitted for GI bleed with anemia and was given blood transfusions. She was seen by Cardiology. The patient was in atrial flutter and atrial fibrillation, and was given metoprolol and digoxin. She is not a candidate for cardioversion given persistent atrial fibrillation and not a candidate for anticoagulation due to gastrointestinal bleed. She was admitted to ICU and given IV hydration and was given proton pump inhibitors b.i.d. On 05/06/2016, the patient underwent esophagogastroduodenoscopy with findings of diffuse gastritis, status post biopsy. Dr. Shetty was consulted for evaluation of positive blood culture and was started empirically on vancomycin. Transthoracic echocardiogram was negative for vegetations. Digoxin level was elevated. Digoxin was discontinued. Level went down. Heart rate had been stable on metoprolol 25 mg b.i.d. and resumed digoxin 0.125 mg daily. Echocardiogram showed severe pulmonary hypertension and severe aortic stenosis with CALVIN 0.6. Repeat blood culture did not isolate any growth. Antibiotics were discontinued. The patient was discharged back to board and care. FINAL DIAGNOSES: 1. Acute upper gastrointestinal bleed. 2. Acute anemia. 3. Atrial fibrillation with RVR. 4. Hypertension. 5. Aortic stenosis. 6. Alzheimer's dementia. 7. Coronary artery disease. 8. Vertigo. 9. Bacteremia. 10. Gastritis. 11. Status post EGD. Jatinder Salgado M.D. I have been assigned to dictate discharge summary on this account and I was not involved in the patient's management. Alba Hopkins N.P. DR: LA NENA JOB#: [id number] CC: [email or web address]
== END 2016-05-12 13:55 | disposition home or self-care (01) | DRG 378 ==
LOC: EDBD 00:52 → EMR 01:26 → 2E 02:36 → EDBEDREQ 02:46
PROC: 30233N1 Transfusion of Nonautologous Red Blood Cells into Peripheral Vein, Percutaneous Approach (ICD-10-PCS; 2016-05-04)
PROC: 0DB68ZX Excision of Stomach, Via Natural or Artificial Opening Endoscopic, Diagnostic (ICD-10-PCS; principal; 2016-05-06 12:16)
DX: K92.2 Gastrointestinal hemorrhage, unspecified (principal); D62 Acute posthemorrhagic anemia; D68.9 Coagulation defect, unspecified; I27.2 Other secondary pulmonary hypertension; I48.92 Unspecified atrial flutter; G30.9 Alzheimer's disease, unspecified; F02.80 Dementia in other diseases classified elsewhere, unspecified severity, without behavioral disturbance, psychotic disturbance, mood disturbance, and anxiety; I48.91 Unspecified atrial fibrillation; K29.70 Gastritis, unspecified, without bleeding; Z85.42 Personal history of malignant neoplasm of other parts of uterus; M06.9 Rheumatoid arthritis, unspecified; Z92.3 Personal history of irradiation; I25.10 Atherosclerotic heart disease of native coronary artery without angina pectoris; Z88.1 Allergy status to other antibiotic agents; Z88.0 Allergy status to penicillin; Z88.8 Allergy status to other drugs, medicaments and biological substances; R42 Dizziness and giddiness; I10 Essential (primary) hypertension; I50.9 Heart failure, unspecified; R00.0 Tachycardia, unspecified; Z22.322 Carrier or suspected carrier of Methicillin resistant Staphylococcus aureus; I35.0 Nonrheumatic aortic (valve) stenosis; B95.7 Other staphylococcus as the cause of diseases classified elsewhere
CPT/HCPCS: 36415; 71010; 76700; 80048; 80053; 80162; 80202; 81003; 82270; 82378; 82553; 82607; 82728; 82746; 83540; 83550; 83690; 83735; 84100; 84484; 85025; 85044; 85610; 85651; 85730; 86140; 86850; 86900; 86901; 86920; 87040; 87081; 87181; 93306; 93970; 94003; 94150; J2405